=== PATIENT | male | born 1945 | race Caucasian/White ===

== ENCOUNTER 2019-05-06 09:25 | Observation (INO) | payer MEDICARE, OTHER, SELFPAY ==
[2019-05-06] VITALS (19 sets, daily range): BP systolic 105–142; BP diastolic 52–70; PULSE 61–83; RESP 10–19; TEMP 36.6–36.8; O2SAT 91–99; BMI 23.3
--- NOTE | 2019-05-06 09:38 | DI.RAD.S_ITS ---
PROCEDURE: XR CHEST 1V INDICATIONS: chest pain TECHNIQUE: One view of the chest was acquired. COMPARISON: None. FINDINGS: Surgical changes and devices: None. Lungs and pleura: Lungs are clear. No pleural effusions or pneumothorax. Mediastinum: Mediastinal contours appear normal. Heart size is normal. Bones and chest wall: No suspicious bony lesions. Overlying soft tissues appear unremarkable. IMPRESSION: Negative chest. No acute cardiopulmonary process is evident. Dictated by: Alfredo Lr M.D. on 05/06/2019 at 9:25 Approved by: Alfredo Lr M.D. on 05/06/2019 at 9:25
[2019-05-06 09:45] LABS: Add Manual Diff / Slide Review NO; Basophils Absolute Auto 0 /uL (0-100); Basophils Percent Auto 0.6 % (0-2); Eosinophils Absolute Auto 100 /uL (0-450); Eosinophils Percent Auto 2.3 % (2-4); Hematocrit 42.2 % (41-53); Hemoglobin 14.3 g/dL (13.5-17.5); Lymphocytes Absolute Auto 1000 /uL (1100-4500); Lymphocytes Percent Auto 23.7 % (25-40); Mean Corpuscular HGB Conc 33.9 % (30-36); Mean Corpuscular Hemoglobin 31.6 PG (26-34); Mean Corpuscular Volume 93.2 fL (80-100); Monocytes Absolute Auto 300 /uL (0-900); Monocytes Percent Auto 7.9 % (3-14); Neutrophils Absolute Auto 2900 /uL (1500-7000); Neutrophils Percent Auto 65.5 % (50-75); Platelet Count 177 X10^3/uL (150-400); Red Blood Cell Count 4.53 X10^6/uL (4.5-5.9); Red Cell Distribution Width 13.8 % (11.6-14.8); White Blood Cell Count 4.4 X10^3/uL (4.5-11.0)
--- NOTE | 2019-05-06 09:51 | ED.CHESTPAIN ---
HPI - Chest Pain General Chief Complaint: Chest Pain Stated Complaint: Heart problems Time Seen by Provider: 05/06/19 09:50 Source: patient Mode of arrival: Ambulatory Limitations: no limitations History of Present Illness HPI narrative: Patient is a 73-year-old male with history of severe CLAUDIA and gastritis presenting with left-sided chest pain. He says he always has chest pain but this morning it woke him up from his sleep few times. The 1st time he took Mylanta which typically does help, and it did help of a first-time agrees able to go back to sleep however he woke up again with chest pain on left side it is worse whenever he moves his arm, or takes a deep breath. He says it does radiate to his back a little bit as well. He denies any injury cough, or fever. He says that he also gets short of breath when he walks which is not abnormal for him, it is not any did an what has been. He currently has chest pain at 3 MD complaint: chest pain Onset (ago): hour(s) Duration: constant Onset: during rest Pain location: left chest Severity: moderate Severity scale (1-10): 3 Quality: aching Pain radiation: back Relieving factors: nothing Exacerbating factors: movement Related Data Home Medications Medication Instructions Recorded Confirmed Domperidone 5 mg PO TID 05/06/19 05/06/19 buprenorphine-naloxone 1 film SUBLINGUAL Q12H 05/06/19 05/06/19 famotidine 40 mg PO BEDTIME 05/06/19 05/06/19 lorazepam 0.5 - 1 mg PO BID PRN 05/06/19 05/06/19 naloxone [Narcan] 4 mg INTRANASAL DIRECTED 05/06/19 05/06/19 pantoprazole 40 mg PO QAM 05/06/19 05/06/19 sertraline 100 mg PO BEDTIME 05/06/19 05/06/19 simethicone [Gas Relief Ultra 180 mg PO DAILY PRN 05/06/19 05/06/19 Strength] tamsulosin 0.4 mg PO BEDTIME 05/06/19 05/06/19 Allergies Allergy/AdvReac Type Severity Reaction Status Date / Time Penicillins Allergy Intermediate Rash Verified 05/06/19 09:37 Review of Systems Review of Systems Narrative: GENERAL: Denies chills, fatigue, malaise, fever, sweats, travel HEENT: Denies sinus pain, ear pain, sore throat, difficulty swallowing, neck pain RESPIRATORY: Denies dyspnea, cough, wheezing, hemoptysis, sputum. CARDIOVASCULAR: See HPI GASTROINTESTINAL: Denies nausea, vomiting, abdominal pain, diarrhea, constipation, melena. : Denies dysuria, frequency, incontinence, hematuria, urinary retention, flank pain. MUSCULOSKELETAL: Denies weakness, joint pain, or bony pain SKIN: No rash, no erythema, no pruritus NEUROLOGIC: Denies weakness, dizziness, headache, numbness, change in speech, confusion PSYCHIATRIC: No concerning psychosocial issues. 12 point review of systems is negative except for those stated above and HPI Patient History Medical History Gastritis (Acute) Sleep apnea (Acute) Social History Smoking Status: Never smoker Smoking Status: Never smoker alcohol intake frequency: 0-2 drinks per day Substance Use Type: does not use Exam Initial Vital Signs Initial Vital Signs: Vital Signs Pulse Rate 79 05/06/19 09:25 Respiratory Rate 18 05/06/19 09:25 Blood Pressure 142/68 H 05/06/19 09:25 Pulse Oximetry 99 05/06/19 09:25 GENERAL: Well-appearing, well-nourished and in no acute distress. HEENT: Head atraumatic,EOMI, pupils reactive, face symmetric, moist mucous membranes CARDIOVASCULAR: Regular rate and rhythm without murmurs, rubs or gallops. Pain is reproducible on the left side to palpation RESPIRATORY: Breath sounds equal bilaterally, no wheezes rales or rhonchi. ABDOMEN: Soft, nontender. Normoactive bowel sounds all 4 quadrants. No guarding or rebound. EXTREMITIES: Normal range of motion, no clubbing or edema. Neurovascularly intact NEUROLOGICAL: Alert and oriented x4.Normal gait and speech. Cranial nerves II through XII grossly intact. SKIN: Warm, dry, no laceration, no petechiae, no rashes or lesions. Course Orders Ordered: ED Orders 05/06/19 09:37 Complete Blood Count AUTO DIFF Stat Comprehensive Metabolic Panel Stat Lipase Stat Magnesium Stat Partial Thromboplastin Time Stat Prothrombin Time INR Stat Troponin & CK Cardiac Panel Stat 05/06/19 09:38 XR chest 1V Stat 05/06/19 09:39 EKG-12 Lead Stat 05/06/19 12:00 Troponin I Stat Acetaminophen (Tylenol) 650 mg PO Q6HR PRN PRN Reason: Fever/Mild Pain (1-3) Al Hydrox/Mg Hydrox/Simethicone (Maalox Plus) 30 ml PO Q6HR PRN PRN Reason: Dyspepsia Bisacodyl (Dulcolax) 10 mg MD DAILY PRN PRN Reason: Constipation Calcium Carbonate (Tums) 1,000 mg PO Q4HR PRN PRN Reason: Dyspepsia Enoxaparin Sodium (Lovenox) 40 mg SUBCUT DAILY MARCELINA Lorazepam (Ativan) 0.5 mg PO BID PRN PRN Reason: agitation or anxiety Magnesium Hydroxide (Milk Of Magnesia) 30 ml PO DAILY PRN PRN Reason: Constipation Mirtazapine (Remeron) 15 mg PO BEDTIME MARCELINA Naloxone HCl (Narcan) 0.2 mg IV Q2MIN PRN PRN Reason: Opiate Reversal Non-Formulary Medication (Famotidine) 40 mg PO BEDTIME MARCELINA Non-Formulary Medication (Naloxone [Narcan]) 4 mg NASAL DIRECTED MARCELINA Nortriptyline HCl (Pamelor) 30 mg PO BEDTIME MARCELINA Ondansetron HCl (Zofran) 4 mg IV Q8HR PRN PRN Reason: Nausea And Vomiting Pantoprazole Sodium (Protonix) 40 mg PO 0700,2100 MARCELINA Tamsulosin HCl (Flomax) 0.4 mg PO BEDTIME MARCELINA Discontinued Medications Acetaminophen (Tylenol) 650 mg PO NOW ONE Stop: 05/06/19 10:52 Last Admin: 05/06/19 10:56 Dose: 650 mg Documented by: ELEUTERIO Aspirin (Aspirin Chew) 324 mg PO NOW ONE Stop: 05/06/19 09:39 Last Admin: 05/06/19 10:34 Dose: 324 mg Documented by: ELEUTERIO Nitroglycerin (Nitrostat) 0.4 mg SL NOW ONE Stop: 05/06/19 10:17 Last Admin: 05/06/19 10:34 Dose: 0.4 mg Documented by: ELEUTERIO Nitroglycerin (Nitrostat) 0.4 mg SL NOW ONE Stop: 05/06/19 10:49 Last Admin: 05/06/19 10:50 Dose: 0.4 mg Documented by: ELEUTERIO Pantoprazole Sodium (Protonix) 40 mg IV NOW ONE Stop: 05/06/19 10:17 Last Admin: 05/06/19 10:33 Dose: 40 mg Documented by: ELEUTERIO Vital Signs Vital signs: Vital Signs - 8 hr 05/06/19 09:25 05/06/19 09:40 05/06/19 09:55 Pulse Rate 79 77 78 Respiratory Rate 18 11 L 17 Blood Pressure 142/68 H Blood Pressure [Right Arm] 119/62 120/70 Pulse Oximetry 99 05/06/19 10:10 05/06/19 10:30 05/06/19 10:34 Pulse Rate 74 76 83 Respiratory Rate 16 14 Blood Pressure 135/68 Blood Pressure [Right Arm] 129/68 133/59 L Pulse Oximetry 94 05/06/19 10:35 05/06/19 10:40 05/06/19 10:45 Pulse Rate 76 69 77 Respiratory Rate 13 11 L 12 Blood Pressure Blood Pressure [Right Arm] 108/56 L 121/64 121/58 L Pulse Oximetry 93 91 94 05/06/19 10:50 05/06/19 10:55 Pulse Rate 77 73 Respiratory Rate 13 11 L Blood Pressure 121/64 Blood Pressure [Right Arm] 114/56 L 111/52 L Pulse Oximetry 95 94 MDM - Chest Pain Lab Data Attestation: I reviewed the patient's lab results. Result diagrams: 05/06/19 09:37 05/06/19 09:37 Labs: Lab Results 05/06/19 05/06/19 05/06/19 Range/Units 09:37 09:37 09:37 WBC 4.4 L (4.5-11.0) X10^3/uL RBC 4.53 (4.5-5.9) X10^6/uL Hgb 14.3 (13.5-17.5) g/dL Hct 42.2 (41-53) % MCV 93.2 (80-100) fL MCH 31.6 (26-34) PG MCHC 33.9 (30-36) % RDW 13.8 (11.6-14.8) % Plt Count 177 (150-400) X10^3/uL Neut % (Auto) 65.5 (50-75) % Lymph % (Auto) 23.7 L (25-40) % [place] % (Auto) 7.9 (3-14) % Eos % (Auto) 2.3 (2-4) % Baso % (Auto) 0.6 (0-2) % Neut # (Auto) 2900 (0505-7144) /uL Lymph # (Auto) 1000 L (1146-5832) /uL [place] # (Auto) 300 (0-900) /uL Eos # (Auto) 100 (0-450) /uL Baso # (Auto) 0 (0-100) /uL PT 11.2 (10.1-12.7) SECONDS INR 1.0 (0.9-1.3) APTT 31 (26.4-36.2) SECONDS Sodium 138 (137-145) mmol/L Potassium 3.9 (3.4-5.1) mmol/L Chloride 99 (98-107) mmol/L Carbon Dioxide 33 H (22-32) mmol/L BUN 20 (9-20) mg/dL Creatinine 0.80 (0.66-1.25) mg/dL Estimated GFR > 60.0 (>60) mL/min BUN/Creatinine Ratio 25.0 H (6-22) Glucose 96 (80-110) mg/dL Calcium 9.4 (8.4-10.2) mg/dL Magnesium 2.2 (1.6-2.3) mg/dL Total Bilirubin 0.7 (0.2-1.3) mg/dL AST 24 (17-59) IU/L ALT 18 (<50) IU/L Alkaline Phosphatase 67 (38-126) U/L Total Creatine Kinase 37 L (55-170) U/L CK-MB (CK-2) TNP CK-MB (CK-2) Rel Index TNP Troponin I < 0.012 (0.01-0.034) ng/mL Total Protein 6.8 (6.3-8.2) g/dL Albumin 4.4 (3.5-5.0) g/dL Globulin 2.4 (1.7-4.1) g/dL Albumin/Globulin Ratio 1.8 (1.0-2.8) Lipase 40 (23-300) U/L Imaging Data Chest x-ray: Radiologist's Impression: PROCEDURE: XR CHEST 1V INDICATIONS: chest pain TECHNIQUE: One view of the chest was acquired. COMPARISON: None. FINDINGS: Surgical changes and devices: None. Lungs and pleura: Lungs are clear. No pleural effusions or pneumothorax. Mediastinum: Mediastinal contours appear normal. Heart size is normal. Bones and chest wall: No suspicious bony lesions. Overlying soft tissues appear unremarkable. IMPRESSION: Negative chest. No acute cardiopulmonary process is evident. Dictated by: Alfredo rL M.D. on 05/06/2019 at 9:25 Approved by: Alfredo Lr M.D. on 05/06/2019 at 9:25 ECG Data Attestation: I personally reviewed and interpreted this ECG as follows: Prior ECG tracings: not available for review Interpretation: Normal sinus rhythm rate 75 p.r. interval 168 QRS [address] elevation depression or T-wave inversion no priors to compare MDM Narrative Medical decision making narrative: Continues to have increasing chest pain on the left side he is given 2 nitroglycerin and his pain resolves. This is atypical chest pain for him, he has no known history of coronary artery disease. He is given Protonix but the nitroglycerin seemed to help almost immediately. Discussed with Dr. hanson who accepts patient for chest pain observation rule Discharge Plan Departure Patient Disposition: Admitted as Observation Clinical Impression: Chest pain Qualifiers: Chest pain type: unspecified Qualified Code(s): R07.9 - Chest pain, unspecified Discharge Date/Time: 05/06/19 12:16 Admit Date/Time: 05/06/19 11:06 Admit Provider: Brittany Hanson
[2019-05-06 09:54] LABS: Prothrombin Time 11.2 SECONDS (10.1-12.7)
[2019-05-06 09:56] LABS: PTT Partial Thromboplastin Tim 31 SECONDS (26.4-36.2)
[2019-05-06 09:58] LABS: Alanine Aminotransferase 18 IU/L (<50); Albumin 4.4 g/dL (3.5-5.0); Albumin Globulin Ratio 1.8 (1.0-2.8); Alkaline Phosphatase 67 U/L (38-126); Aspartate Aminotransferase 24 IU/L (17-59); Bilirubin Total 0.7 mg/dL (0.2-1.3); Blood Urea Nitrogen 20 mg/dL (9-20); Calcium 9.4 mg/dL (8.4-10.2); Carbon Dioxide 33 mmol/L (22-32); Chloride 99 mmol/L (98-107); Creatine Kinase 37 U/L (55-170); Estimated Glomerular Filt Rate > 60.0 mL/min (>60); Globulin 2.4 g/dL (1.7-4.1); Glucose 96 mg/dL (80-110); HEMOLYSIS < 15 (0-50); Lipase 40 U/L (23-300); Magnesium 2.2 mg/dL (1.6-2.3); Potassium 3.9 mmol/L (3.4-5.1); Sodium 138 mmol/L (137-145); Total Protein 6.8 g/dL (6.3-8.2)
[2019-05-06 10:09] LABS: Troponin I < 0.012 ng/mL (0.01-0.034)
[2019-05-06] MEDS: PANTOPRAZOLE 40 MG VIAL IV (10:33)
[2019-05-06] MEDS: ASPIRIN 81 MG CHEW TAB 324 MG PO (10:34)
[2019-05-06] MEDS: NITROGLYCERIN 0.4 MG SL TAB SL ×2 (10:34→10:50)
[2019-05-06] MEDS: ACETAMINOPHEN 325 MG TABLET 650 MG PO ×2 (10:56→16:49)
--- NOTE | 2019-05-06 11:04 | PC.NURSE ---
After 2 SL nitro pts pain is 3/10, SOB is improved. Medicated with tylenol for HILL.
--- NOTE | 2019-05-06 12:07 | PC.NURSE ---
Day shift: Pt on unit at approx 1200 from ED. A&Ox4. Oriented to room and call light. Denies chest pain. Call light in reach. Spouse in room for support.
[2019-05-06 12:29] LABS: Cholesterol 179 mg/dL (140-199); HDL Cholesterol 47 mg/dL (40-60); LDL Cholesterol Calculated 120 mg/dL (<100); Triglycerides 62 mg/dL (35-150)
[2019-05-06 12:33] LABS: Hemoglobin A1C% w Est Avg Glu 5.1 % (4.0-6.0)
[2019-05-06 12:35] LABS: Troponin I < 0.012 ng/mL (0.01-0.034)
[2019-05-06] MEDS: MAG HYDROX/ALUM/SIMETH 30 ML UDC PO (13:03)
[2019-05-06] MEDS: LORazepam 0.5 MG TABLET PO (13:03)
[2019-05-06] MEDS: SERTRALINE 50 MG TABLET 150 MG PO (13:43)
[2019-05-06] MEDS: BUPRENORPHINE/NALOXONE 8MG/2MG 1 TAB SL ×2 (13:43→20:23)
[2019-05-06] MEDS: ONDANSETRON 4 MG/2 ML INJ IV (14:31)
[2019-05-06 16:16] LABS: Creatine Kinase 33 U/L (55-170)
[2019-05-06 16:29] LABS: Troponin I < 0.012 ng/mL (0.01-0.034)
--- NOTE | 2019-05-06 17:18 | PM.HP.1 ---
History of Present Illness History of Present Illness Date Patient Seen: 05/06/19 Chief complaint: Heart problems Narrative: Fran Ruby is a 73-year-old male with a past medical history significant for central sleep apnea, chronic lumbar back pain on Suboxone, gastroparesis, GERD with history of gastritis, depression and anxiety, and idiopathic peripheral neuropathy who presented to the ED with abrupt onset of chest pain. The patient reports that he awakens throughout the night due to central sleep apnea with shortness of breath and chest pain nightly. He reports that last night he abruptly awoke with severe left-sided substernal chest pain which radiated to his left neck, shoulder, down left arm with a tight band around his wrist and straight through to his back. He reports associated nausea and shortness of breath. He reports the quality of his chest pain as sharp, achy with mild pressure sensation. He rated the pain a +7/10 which lasted for 30 minutes then lightened to a +3/10. When the patient arrived to the ED his chest pain had increased to a +5/10 and he received his first dose of sublingual nitroglycerin which decreased his chest pain to a +3/10 and then a second dose which completely resolved his chest pain. The patient reports he had a left cardiac catheterization 05/26 due to chest pain with EKG changes at [facility] and no obstructive coronary artery disease was found. He is currently chest pain-free and has no complaints. He denies headache, chest pain, shortness of breath, nausea, vomiting, fever, chills, dysuria, diarrhea or constipation. He currently uses a CPAP for his central sleep and reports he is to receive a BiPAP on 05/09/2019. The patient's initial troponin was negative in EKG was found to be sinus rhythm without acute ischemic changes such as ST elevation or depression. The patient was admitted observation for chest pain rule out. Patient History Medical History Anxiety (Acute) Central sleep apnea (Acute) Chronic low back pain (Acute) Chronic pain (Acute) Depression (Acute) Gastritis (Acute) Gastroparesis (Acute) GERD (gastroesophageal reflux disease) (Acute) History of left heart catheterization (Acute) Idiopathic peripheral neuropathy (Acute) Sleep apnea (Acute) Surgical History History of laminectomy (Acute) Family & Social History Family History Mother Healthy adult Father No problems noted. Brother Healthy adult Sister Healthy adult Social History: household members spouse Prior Living Arrangements House Safety & Behavioral: Feels Safe in Current Yes Environment Been Physically Hurt or No Threatened By a Person Suicidal Ideation Description None Suicide Plan Description No Plan The patient has been for 53 years. He has 1 son and 1 daughter who are both healthy. 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 He does not use alcohol tobacco or recreational drugs. Tobacco & Substance use: Smoking Status Never smoker alcohol intake never alcohol intake frequency 0-2 drinks per day Substance Use Type does not use Meds Home Medications and Allergies Home Medications Medication Instructions Recorded Confirmed Type Domperidone 5 mg PO TID 05/06/19 05/06/19 History buprenorphine-naloxone 1 film SUBLINGUAL Q12H 05/06/19 05/06/19 History famotidine 40 mg PO BEDTIME 05/06/19 05/06/19 History lorazepam 0.5 - 1 mg PO BID PRN 05/06/19 05/06/19 History naloxone [Narcan] 4 mg INTRANASAL DIRECTED 05/06/19 05/06/19 History pantoprazole 40 mg PO QAM 05/06/19 05/06/19 History sertraline 100 mg PO BEDTIME 05/06/19 05/06/19 History simethicone [Gas Relief Ultra 180 mg PO DAILY PRN 05/06/19 05/06/19 History Strength] tamsulosin 0.4 mg PO BEDTIME 05/06/19 05/06/19 History Allergies Allergy/AdvReac Type Severity Reaction Status Date / Time Penicillins Allergy Intermediate Rash Verified 05/06/19 09:37 Review of Systems Review of Systems Narrative: A 10 system comprehensive review of systems was conducted with the patient and found to be negative except as above in the History of Present Illness. Exam Vital Signs (past 8 hours): - 05/06/19 09:25 05/06/19 09:40 05/06/19 09:55 Temperature Pulse Rate 79 77 78 Respiratory Rate 18 11 L 17 Blood Pressure 142/68 H Blood Pressure [Right Arm] 119/62 120/70 Pulse Oximetry 99 05/06/19 10:10 05/06/19 10:30 05/06/19 10:34 Temperature Pulse Rate 74 76 83 Respiratory Rate 16 14 Blood Pressure 135/68 Blood Pressure [Right Arm] 129/68 133/59 L Pulse Oximetry 94 05/06/19 10:35 05/06/19 10:40 05/06/19 10:45 Temperature Pulse Rate 76 69 77 Respiratory Rate 13 11 L 12 Blood Pressure Blood Pressure [Right Arm] 108/56 L 121/64 121/58 L Pulse Oximetry 93 91 94 05/06/19 10:50 05/06/19 10:55 05/06/19 11:15 Temperature Pulse Rate 77 73 74 Respiratory Rate 13 11 L 10 L Blood Pressure 121/64 Blood Pressure [Right Arm] 114/56 L 111/52 L 105/58 L Pulse Oximetry 95 94 97 05/06/19 11:25 05/06/19 12:05 05/06/19 16:11 Temperature 97.8 F 98.2 F Pulse Rate 69 61 73 Respiratory Rate 15 17 19 Blood Pressure 113/60 128/68 Blood Pressure [Right Arm] 116/61 Pulse Oximetry 98 97 96 Oxygen Delivery Method Room Air Oxygen Flow Rate 0 Narrative Exam Narrative: General: Elderly gentleman lying in bed and in no acute distress, appears younger than stated age, well-developed, well-nourished, appropriately interactive. HEENT: Normocephalic, atraumatic. External ears without defect. Pupils equal, round, and reactive to light. Anicteric sclerae, moist conjunctivae, and no lid lag. Oropharynx free of erythema and cobble stoning with moist mucosa. Neck: Supple with full range of motion. No jugular venous distension. No lymphadenopathy or thyromegaly. Cardiovascular: Regular rate and rhythm without murmurs, rubs, or gallops appreciated. Pulmonary: Clear to auscultation bilaterally without crackles, wheezes, or rhonchi. Normal respiratory effort with no use of accessory muscles. Abdomen: Soft, bowel sounds present, nontender, nondistended. No hepatosplenomegaly or masses appreciated. Extremities: No clubbing, cyanosis, or edema. Skin: Normal temperature, turgor, and texture; no rash, ulcers, or subcutaneous nodules appreciated. Neurological: Cranial nerves grossly intact. Psychiatric: Normal mood and affect. Alert and oriented to person, place, and time. Objective Labs Result Diagrams: 05/06/19 09:37 05/06/19 09:37 Labs: Laboratory Results - last 24 hr 05/06/19 05/06/19 05/06/19 09:37 09:37 09:37 WBC 4.4 L RBC 4.53 Hgb 14.3 Hct 42.2 MCV 93.2 MCH 31.6 MCHC 33.9 RDW 13.8 Plt Count 177 Neut % (Auto) 65.5 Lymph % (Auto) 23.7 L [place] % (Auto) 7.9 Eos % (Auto) 2.3 Baso % (Auto) 0.6 Neut # (Auto) 2900 Lymph # (Auto) 1000 L [place] # (Auto) 300 Eos # (Auto) 100 Baso # (Auto) 0 PT 11.2 INR 1.0 APTT 31 Sodium 138 Potassium 3.9 Chloride 99 Carbon Dioxide 33 H BUN 20 Creatinine 0.80 Estimated GFR > 60.0 BUN/Creatinine Ratio 25.0 H Glucose 96 Hemoglobin A1c Calcium 9.4 Magnesium 2.2 Total Bilirubin 0.7 AST 24 ALT 18 Alkaline Phosphatase 67 Total Creatine Kinase 37 L CK-MB (CK-2) TNP CK-MB (CK-2) Rel Index TNP Troponin I < 0.012 Total Protein 6.8 Albumin 4.4 Globulin 2.4 Albumin/Globulin Ratio 1.8 Triglycerides Cholesterol LDL Cholesterol, Calc HDL Cholesterol Lipase 40 05/06/19 05/06/19 05/06/19 09:37 09:37 12:00 WBC RBC Hgb Hct MCV MCH MCHC RDW Plt Count Neut % (Auto) Lymph % (Auto) [place] % (Auto) Eos % (Auto) Baso % (Auto) Neut # (Auto) Lymph # (Auto) [place] # (Auto) Eos # (Auto) Baso # (Auto) PT INR APTT Sodium Potassium Chloride Carbon Dioxide BUN Creatinine Estimated GFR BUN/Creatinine Ratio Glucose Hemoglobin A1c 5.1 Calcium Magnesium Total Bilirubin AST ALT Alkaline Phosphatase Total Creatine Kinase CK-MB (CK-2) CK-MB (CK-2) Rel Index Troponin I < 0.012 Total Protein Albumin Globulin Albumin/Globulin Ratio Triglycerides 62 Cholesterol 179 LDL Cholesterol, Calc 120 H HDL Cholesterol 47 Lipase 05/06/19 16:00 WBC RBC Hgb Hct MCV MCH MCHC RDW Plt Count Neut % (Auto) Lymph % (Auto) [place] % (Auto) Eos % (Auto) Baso % (Auto) Neut # (Auto) Lymph # (Auto) [place] # (Auto) Eos # (Auto) Baso # (Auto) PT INR APTT Sodium Potassium Chloride Carbon Dioxide BUN Creatinine Estimated GFR BUN/Creatinine Ratio Glucose Hemoglobin A1c Calcium Magnesium Total Bilirubin AST ALT Alkaline Phosphatase Total Creatine Kinase 33 L CK-MB (CK-2) TNP CK-MB (CK-2) Rel Index TNP Troponin I < 0.012 Total Protein Albumin Globulin Albumin/Globulin Ratio Triglycerides Cholesterol LDL Cholesterol, Calc HDL Cholesterol Lipase Assessment & Plan Assessment & Plan narrative: Fran Ruby is a 73-year-old male with a past medical history significant for central sleep apnea, chronic lumbar back pain on Suboxone, gastroparesis, GERD with history of gastritis, depression and anxiety, and idiopathic peripheral neuropathy who presented to the ED with abrupt onset of chest pain. 1. Acute chest pain, present on admission. Resolved. -Patient presented with abrupt onset substernal left-sided chest pain radiating to left neck, shoulder, left arm with bandlike sensation around wrist and straight through to back with associated nausea and shortness of breath. -EKG demonstrated normal sinus rhythm without acute ischemic changes such as ST elevation or depression. Continue to monitor closely on telemetry. -Initial troponin negative at < 0.012. Continue to monitor serial troponin x3. -Ordered nuclear medicine stress test, pending. Patient is very low risk as his only cardiac risk factor is central sleep apnea and he received a left heart catheterization in 05/2018 which did not demonstrate obstructive coronary artery disease. 2. Central sleep apnea, chronic, present on admission. Stable. -Patient reports he is going to receive a BiPAP on 05/09/2019 -Ordered CLAUDIA protocol for CPAP. Encouraged patient to have his bring in his CPAP. 3. Chronic lumbar back pain on Suboxone, present on admission. Stable. -Continue home Suboxone 8mg/2mg 0.5 tablet at 0800, 1200 and 1 tablet at 2000. 4. GERD, chronic, present on admission. Stable. -Continue famotidine 40 mg daily at bedtime and Protonix 40 mg twice daily. 5. Gastroparesis, chronic, present on admission. Stable. -Patient is on domperidone 5 mg 3 times daily which will not be given due to medication being illegal in the [place]. The patient obtains medication and Melany. 6. Depression and anxiety, chronic, present on admission. Stable. -Continue sertraline 100 mg daily at bedtime and lorazepam 1 mg twice daily as needed for anxiety. Patient is admitted under observation status with expected length of stay less than 2 midnights due to severity of presenting symptoms, risk of adverse event, and complexity of treatment plan.
[2019-05-06] MEDS: raNITIdine 150 MG CAPSULE PO (21:33)
[2019-05-06] MEDS: TAMSULOSIN 0.4 MG CAPSULE PO (21:33)
[2019-05-06] MEDS: LORazepam 1 MG TABLET PO (21:38)
--- NOTE | 2019-05-06 21:59 | PC.NURSE ---
pt. denied chest pain. administered tylenol for head ache. denied n/v. passing gas. tele monitor.Pt aware he will be NPO tomorrow for stress test. pt is independent. call light in reach.
[2019-05-07] VITALS (8 sets, daily range): BP systolic 106–140; BP diastolic 58–75; PULSE 66–81; RESP 16–18; TEMP 36.3–36.7; O2SAT 93–97
[2019-05-07] MEDS: MAG HYDROX/ALUM/SIMETH 30 ML UDC PO ×2 (04:32→09:04)
--- NOTE | 2019-05-07 05:06 | PC.NURSE ---
Patient requesting to come off of bipap due stomach upset, requesting medications for dyspepsia. Placed patient on continuous pulse ox to determine need for supplemental O2, none needed at this time. Will continue to monitor.
[2019-05-07] MEDS: BUPRENORPHINE/NALOXONE 8MG/2MG 1 TAB 0.5 TAB SL ×2 (06:03→13:30)
[2019-05-07] MEDS: PANTOPRAZOLE 40 MG TABLET PO (06:04)
[2019-05-07] MEDS: ENOXAPARIN 40 MG/0.4 ML SYRINGE SUBCUT (08:14)
[2019-05-07] MEDS: ASPIRIN EC 81 MG TABLET PO (08:14)
[2019-05-07] MEDS: LORazepam 1 MG TABLET PO (08:14)
[2019-05-07] MEDS: SERTRALINE 50 MG TABLET 150 MG PO (08:22)
[2019-05-07] MEDS: CALCIUM CARBONATE 500 MG TAB 1000 MG PO (08:22)
[2019-05-07] MEDS: ONDANSETRON 4 MG/2 ML INJ IV (08:22)
[2019-05-07] MEDS: NITROGLYCERIN 0.4 MG SL TAB SL ×3 (08:51→09:12)
--- NOTE | 2019-05-07 08:53 | CM.DANOTE ---
Addendum entered by Eleanor Wei R.N. 05/07/19 15:32: Spoke to hospitalist, Dr. Dwyer. She is awaiting results of stress test. She stated, hopefully he can go home. Patient is in need of provider more local. Went ahead and met with patient. Gave him phone number of [facility], Dr. Jones, and Dr. Howell, which are taking new patients. Also gave him [facility] phone number as well. Patient appreciative. He is hopeful to go home today. Original Note: DCP: Case received, EMR reviewed and met with patient. Introduced self and role. Was able to meet with patient in his room to obtain baseline health history. DCP assessment completed with information currently available. Patient is a 73 year old male who admitted yesterday morning to the care of the hospitalist team. PCP: Dr. Mi at [facility] in [place]. Payer: confirmed: Medicare/[employer]. Patient came to the hospital via family vehicle secondary to left sided chest pain. Patient has cardiac history, last May had left cardiac catheterization. Patient is expected to have a stress test at noon today. Patient also has history of sleep apnea, as well as back pain. Patient is alert and oriented, independent. Confirmed with him that he lives here in [place] with his spouse, Cara. They have been 53 years, and he is a retired psychologist. P: DCP will continue to follow. Patient is set up for a stress test today. He could potentially go home today depending on the results. Eleanor Wei RN/School Manager
[2019-05-07] MEDS: ACETAMINOPHEN 325 MG TABLET 650 MG PO (09:08)
--- NOTE | 2019-05-07 11:13 | PC.NURSE ---
Pain: Pt reporting c/p and nausea while he was eating bkft, started at 7/10, then dropped to 3/10, he had zofran and got and ecg. C/p then went up to 5/10, pt reports MD thinks possible eso spasm, got tums, antacid, tylenol, ntg x3, made aware, reviewed ecg and later went and saw pt. c/p down to 3/10, then 2/10, and then it was gone and pt was able to sleep. he is awake now, and watches tv, awaiting his stress test for later today.
--- NOTE | 2019-05-07 12:32 | PC.NURSE ---
cardiac: remains pain free, currently [place] [facility]
--- NOTE | 2019-05-07 16:20 | PM.DS.1 ---
History of Present Illness History of Present Illness Chief complaint: Heart problems Narrative: Written by myself Dr. Dwyer: Fran Ruby is a 73-year-old male with a past medical history significant for central sleep apnea, chronic lumbar back pain on Suboxone, gastroparesis, GERD with history of gastritis, depression and anxiety, and idiopathic peripheral neuropathy who presented to the ED with abrupt onset of chest pain. The patient reports that he awakens throughout the night due to central sleep apnea with shortness of breath and chest pain nightly. He reports that last night he abruptly awoke with severe left-sided substernal chest pain which radiated to his left neck, shoulder, down left arm with a tight band around his wrist and straight through to his back. He reports associated nausea and shortness of breath. He reports the quality of his chest pain as sharp, achy with mild pressure sensation. He rated the pain a +7/10 which lasted for 30 minutes then lightened to a +3/10. When the patient arrived to the ED his chest pain had increased to a +5/10 and he received his first dose of sublingual nitroglycerin which decreased his chest pain to a +3/10 and then a second dose which completely resolved his chest pain. The patient reports he had a left cardiac catheterization 05/26 due to chest pain with EKG changes at [facility] and no obstructive coronary artery disease was found. He is currently chest pain-free and has no complaints. He denies headache, chest pain, shortness of breath, nausea, vomiting, fever, chills, dysuria, diarrhea or constipation. He currently uses a CPAP for his central sleep and reports he is to receive a BiPAP on 05/09/2019. The patient's initial troponin was negative in EKG was found to be sinus rhythm without acute ischemic changes such as ST elevation or depression. The patient was admitted observation for chest pain rule out. Discharge Providers Provider Date of admission: 05/06/19 11:06 Discharge Date: 05/07/19 Consults: 05/06/19 12:07 Consult to Discharge Planning Routine Comment: Discharge provider: Brittany Dwyer DO Summary Hospital Course Discharge Diagnosis: 1. Acute chest pain, present on admission. Resolved. 2. Central sleep apnea, chronic, present on admission. Stable. 3. Chronic lumbar back pain on Suboxone, present on admission. Stable. 4. GERD, chronic, present on admission. Stable. 5. Gastroparesis, chronic, present on admission. Stable. 6. Depression and anxiety, chronic, present on admission. Stable. 7. Hyperlipidemia, chronic, present on admission. Stable. Hospital Course: Fran Ruby is a 73-year-old male with a past medical history significant for central sleep apnea, chronic lumbar back pain on Suboxone, gastroparesis, GERD with history of gastritis, depression and anxiety, and idiopathic peripheral neuropathy who presented to the ED with abrupt onset of chest pain. 1. Acute chest pain, present on admission. Resolved. -Patient presented with abrupt onset substernal left-sided chest pain radiating to left neck, shoulder, left arm with bandlike sensation around wrist and straight through to back with associated nausea and shortness of breath. -cardiac risk factors include: Central sleep apnea and hyperlipidemia. -EKG demonstrated normal sinus rhythm without acute ischemic changes such as ST elevation or depression. Continue to monitor closely on telemetry. -Serial troponin x 3 negative at < 0.012. -Nuclear medicine stress test was within normal limits with good exercise capacity. Cardiology noted large shadow from stomach and patient relays that he has a hiatal hernia. -Recommended continued GI evaluation for possible esophageal hyperperistalsis/distal esophageal spasm as patient's chest pain resolved with nitroglycerin which is also a smooth muscle relaxant for the esophagus. May want to consider Celso fundoplication versus starting diltiazem. 2. Central sleep apnea, chronic, present on admission. Stable. -Patient reports he is going to receive a BiPAP on 05/09/2019. -Continued CLAUDIA protocol for CPAP. Encouraged patient to have his bring in his CPAP. 3. Chronic lumbar back pain on Suboxone, present on admission. Stable. -Continued home Suboxone 8mg/2mg 0.5 tablet at 0800, 1200 and 1 tablet at 2000. 4. GERD, chronic, present on admission. Stable. -Continued famotidine 40 mg daily at bedtime and Protonix 40 mg twice daily. 5. Gastroparesis, chronic, present on admission. Stable. -Patient is on domperidone 5 mg 3 times daily which will not be given due to medication being illegal in the [place]. The patient obtains medication in [place]. 6. Depression and anxiety, chronic, present on admission. Stable. -Continued sertraline 100 mg daily at bedtime and lorazepam 1 mg twice daily as needed for anxiety. 7. Hyperlipidemia, chronic, present on admission. Stable. -Fasting lipid panel demonstrated fair lipid control: Total cholesterol 179, triglycerides 62, LDL elevated at 120 (goal <100), and HDL 47. -Discussed lifestyle modification including diet and exercise in detail. The patient has had elevated LDL in the past which he is gotten down with lifestyle modification previously. Highly recommend considering statin therapy. Exam Vital Signs (past 8 hours): - 05/07/19 08:51 05/07/19 08:57 05/07/19 09:12 Temperature Pulse Rate 74 81 74 Respiratory Rate Blood Pressure 122/65 110/64 107/58 L Pulse Oximetry 05/07/19 12:46 05/07/19 15:14 Temperature 98 F 97.7 F Pulse Rate 70 80 Respiratory Rate 16 16 Blood Pressure 140/75 112/66 Pulse Oximetry 97 97 Oxygen Delivery Method Room Air Oxygen Flow Rate 0 Narrative Exam Narrative: General: Elderly gentleman lying in bed and in no acute distress, appears younger than stated age, well-developed, well-nourished, appropriately interactive. HEENT: Normocephalic, atraumatic. External ears without defect. Pupils equal, round, and reactive to light. Anicteric sclerae, moist conjunctivae, and no lid lag. Oropharynx free of erythema and cobble stoning with moist mucosa. Neck: Supple with full range of motion. No jugular venous distension. No lymphadenopathy or thyromegaly. Cardiovascular: Regular rate and rhythm without murmurs, rubs, or gallops appreciated. Mild tenderness to palpation of anterior left chest. Pulmonary: Clear to auscultation bilaterally without crackles, wheezes, or rhonchi. Normal respiratory effort with no use of accessory muscles. Abdomen: Soft, bowel sounds present, nontender, nondistended. No hepatosplenomegaly or masses appreciated. Extremities: No clubbing, cyanosis, or edema. Skin: Normal temperature, turgor, and texture; no rash, ulcers, or subcutaneous nodules appreciated. Neurological: Cranial nerves grossly intact. Psychiatric: Normal mood and affect. Alert and oriented to person, place, and time. Objective Labs Result Diagrams: 05/06/19 09:37 05/06/19 09:37 Labs: Laboratory Results - last 24 hr 05/06/19 16:00 Troponin I < 0.012 Discharge Plan Discharge Plan Patient Disposition: Home Discharge comment: You are being discharged home. Your stress test and cardiac workup was completely normal. Cardiology recommends continued GI evaluation. Please follow-up with your primary care physician, Dr. Mi, regarding your hospitalization. Your bad cholesterol called LDL was elevated at 120 for which we want to be under 100. You have tried lifestyle modifications several times in the past with success, however, your LDL continues to be elevated intermittently and you should likely be treated with a statin which you may discuss with your PCP. Please follow-up with GI provider, Dr. Eduardo, to discuss further workup and evaluation and consider distal esophageal spasm (CAROLYN)/esophageal hyperperistalsis. Discharge orders & Medications Prescriptions: Continued famotidine 40 mg tablet 40 mg PO BEDTIME RF: 0 tamsulosin 0.4 mg capsule 0.4 mg PO BEDTIME RF: 0 pantoprazole 40 mg tablet,delayed release (DR/EC) 40 mg PO QAM RF: 0 lorazepam 1 mg tablet 0.5 - 1 mg PO BID PRN (Reason: agitation or anxiety) RF: 0 buprenorphine-naloxone 8-2 mg film 1 film sublingual Q12H RF: 0 Narcan 4 mg/actuation spray,non-aerosol 4 mg INTRANASAL DIRECTED RF: 0 simethicone [Gas Relief Ultra Strength] 180 mg Capsule 180 mg PO DAILY PRN (Reason: gas) RF: 0 sertraline 100 mg tablet 100 mg PO BEDTIME RF: 0 Domperidone 10 mg tablet 5 mg PO TID RF: 0 Diet/Activity/Treatments Diet: Low-fat, Low-sodium and Low-cholesterol Activity: Activity as tolerated Visit Report/Discharge Packet Instructions: The Mediterranean Diet and Good Health, Fundoplication -- Open Surgery, DI for Gastroesophageal Reflux Disease (GERD), GERD Diet Discharge Data Attending Provider: Brittany Dwyer Admit Date/Time: 05/06/19 11:06
--- NOTE | 2019-05-07 16:30 | PC.NURSE ---
98% RA. pt denied chest pain. pt is using his bipap when sleeping. independent in room. call light in reach.
--- NOTE | 2019-05-07 16:49 | DI.NM.S_ITS ---
DATE OF SERVICE: 05/07/2019 PROCEDURE: Exercise perfusion study. INDICATIONS: Chest pain with underlying obstructive sleep apnea. RADIOPHARMACEUTICAL: 27.0 mCi of technetium-99m Myoview IV was injected at stress. CARDIAC STRESS: Patient underwent exercise perfusion study under the supervision of an attending staff. he walked on Deejay protocol for 9 minutes 30 seconds, achieved 104% of target heart rate, normal blood pressure response, 10.2 METs of workload, and functional aerobic impairment -39%. No anginal symptoms. Baseline EKG revealed sinus rhythm. Stress EKG did not reveal any obvious inducible ischemic changes. There were no significant arrhythmias. RAW DATA: There is increased subdiaphragmatic activity. Prominent gastric shadow seen as well. GATED STUDY: Stress LV ejection fraction 83% without any obvious wall motion abnormalities. Stress end-diastolic volume is 89 mL. CARDIAC PERFUSION: This is a stress perfusion study only. No resting study was done. Stress supine images were compared to stress prone images. Stress supine images revealed small-sized mildly decreased perfusion of [id number] inferior wall which got completely resolved during prone images suggestive of tissue attenuation artifact. During prone images, no convincing perfusion defect. CONCLUSION: I will call this study a normal myocardial perfusion study with evidence of tissue attenuation artifact which got resolved during prone images. Excellent exercise tolerance. Functional aerobic impairment -39%. Patient walked on Deejay protocol for 9 minutes and 30 seconds. Normal hemodynamic response. No ischemic EKG changes. No significant arrhythmias. Prominent gastric shadow seen during raw images. Consider GI workup to rule out GI etiology of chest pain. Fran Ruby - [place]/ doc#: [id number]/job#: [id number] dd: 05/07/2019 16:19:00 dt: 05/07/2019 16:42:00 DICTATING MD/COPIES TO: Jere Baird MD COPIES MNE: DINA
--- NOTE | 2019-05-07 17:42 | PC.NURSE ---
pt A&OX4. pt ate his dinner. Pt dc'd, refused wheelchair, escorted by PRET[employer] TWISTING MACHINE OPERATOR to the exit. discharge instructions provided by Karishma.
== END 2019-05-07 17:42 | disposition home or self-care (01) ==
LOC: ED 11:06 → AC 11:07
PROVIDERS: Admitting Provider Internal Medicine; Emergency Provider Emergency Medicine; Visit Provider Internal Medicine
DX: R07.9 Chest pain, unspecified (principal); G47.31 Primary central sleep apnea; F41.9 Anxiety disorder, unspecified; F32.9 Major depressive disorder, single episode, unspecified; K21.9 Gastro-esophageal reflux disease without esophagitis; G60.9 Hereditary and idiopathic neuropathy, unspecified; G89.29 Other chronic pain; M54.5 Low back pain; K31.84 Gastroparesis; E78.5 Hyperlipidemia, unspecified
CPT/HCPCS: 36415; 71045; 78451; 80053; 80061; 82550; 83036; 83690; 83735; 84484; 85025; 85610; 85730; 93005; 93016; 93017; 93018; 94660; 94762; 96374; 96375; 96376; 99285; G0378; A9502; C9113; J1650; J2405

== ENCOUNTER 2019-06-06 12:43 | Emergency (ER) | payer MEDICARE, OTHER, SELFPAY ==
[2019-05-06 13:51] VITALS: BMI 23.3
[2019-06-06] VITALS (9 sets, daily range): BP systolic 105–151; BP diastolic 56–69; PULSE 62–82; RESP 10–22; TEMP 37.2; O2SAT 93–99; BMI 23.6
--- NOTE | 2019-06-06 12:52 | DI.RAD.S_ITS ---
PROCEDURE: XR CHEST 1V INDICATIONS: chest pain TECHNIQUE: One view of the chest was acquired. COMPARISON: [facility], CR, XR CHEST 1V, 05/06/2019, 9:49. FINDINGS: Surgical changes and devices: None. Lungs and pleura: Lungs are clear. No pleural effusions or pneumothorax. Mediastinum: Mediastinal contours appear normal. Heart size is normal. Bones and chest wall: No suspicious bony lesions. Overlying soft tissues appear unremarkable. IMPRESSION: No acute cardiopulmonary pathology. Dictated by: Arden Aranda M.D. on 06/06/2019 at 14:53 Approved by: Arden Aranda M.D. on 06/06/2019 at 15:02
[2019-06-06 13:15] LABS: Add Manual Diff / Slide Review NO; Basophils Absolute Auto 0 /uL (0-100); Basophils Percent Auto 0.7 % (0-2); Eosinophils Absolute Auto 0 /uL (0-450); Eosinophils Percent Auto 1.5 % (2-4); Hematocrit 41.8 % (41-53); Hemoglobin 14.3 g/dL (13.5-17.5); Lymphocytes Absolute Auto 800 /uL (1100-4500); Lymphocytes Percent Auto 23.4 % (25-40); Mean Corpuscular HGB Conc 34.2 % (30-36); Mean Corpuscular Hemoglobin 31.5 PG (26-34); Monocytes Absolute Auto 200 /uL (0-900); Monocytes Percent Auto 7.2 % (3-14); Neutrophils Absolute Auto 2200 /uL (1500-7000); Neutrophils Percent Auto 67.2 % (50-75); Platelet Count 178 X10^3/uL (150-400); Red Blood Cell Count 4.55 X10^6/uL (4.5-5.9); Red Cell Distribution Width 13.3 % (11.6-14.8); White Blood Cell Count 3.3 X10^3/uL (4.5-11.0)
[2019-06-06 13:31] LABS: Prothrombin Time 11.1 SECONDS (10.1-12.7)
[2019-06-06 13:33] LABS: PTT Partial Thromboplastin Tim 31 SECONDS (26.4-36.2)
[2019-06-06 13:36] LABS: Alanine Aminotransferase 26 IU/L (<50); Albumin 4.4 g/dL (3.5-5.0); Albumin Globulin Ratio 1.8 (1.0-2.8); Alkaline Phosphatase 56 U/L (38-126); Aspartate Aminotransferase 25 IU/L (17-59); BUN Creatinine Ratio 21.3 (6-22); Bilirubin Total 0.7 mg/dL (0.2-1.3); Blood Urea Nitrogen 17 mg/dL (9-20); Calcium 9.3 mg/dL (8.4-10.2); Carbon Dioxide 30 mmol/L (22-32); Chloride 99 mmol/L (98-107); Creatine Kinase 36 U/L (55-170); Estimated Glomerular Filt Rate > 60.0 mL/min (>60); Globulin 2.4 g/dL (1.7-4.1); Glucose 125 mg/dL (80-110); HEMOLYSIS 16 (0-50); Lipase 34 U/L (23-300); Sodium 137 mmol/L (137-145); Total Protein 6.8 g/dL (6.3-8.2)
[2019-06-06 13:47] LABS: Troponin I < 0.012 ng/mL (0.01-0.034)
--- NOTE | 2019-06-06 14:15 | PC.NURSE ---
History of esophageal spasms
--- NOTE | 2019-06-06 15:37 | PC.NURSE ---
pt reports, left neck,left clavicle,shoulder,chest pain, left wrist band pain ,onset 2am worsening today, concern for tia. takes diltiazem, no ntg due to left sided headache pain specialist Jolanta Wilkerson. denies shortness of breath, coughing. on exam tenderness left side neck, clavicle,shoulder, pain with movement, left chest, tenderness with palpation.
--- NOTE | 2019-06-06 16:05 | ED_ITS ---
HPI - Chest Pain General Chief Complaint: Chest Pain Stated Complaint: persistent left chest, shoulder, neck pain Time Seen by Provider: 06/06/19 15:39 Source: patient Mode of arrival: Ambulatory History of Present Illness HPI narrative: Chief complaint: headache, left shoulder and arm pain and neck pain HPI: The patient is a 74-year-old male who is difficulty to get an accurate history as to exactly what is wrong. The patient has a history of chronic low back pain after a laminectomy chronic headache left neck pain left shoulder pain and left chest pain. The pain is a dull achy pain that is sharp and stabbing on movement. He admits to taking Suboxone for the pain and discomfort as well as diltiazem and nitroglycerin. He did not take the nitroglycerin today because it causes him to have a headache and he already had a severe headache. He states that he sees Dr. Mi a pain specialist who has prescribed these medications. He has seen Dr. Dwyer when admitted to the hospital. He denies a history of reflex sympathetic dystrophy. He denies dizziness rapid heart rate palpitations. He denies any kidney failure. He has had intermittent sweats associated with the headache but no fever chills. He denies any significant shortness of breath cough. He has had no nausea vomiting diarrhea or abdominal pain. He has had no urinary symptoms. Related Data Home Medications Medication Instructions Recorded Confirmed Domperidone 5 mg PO TID 05/06/19 06/06/19 Narcan 4 mg INTRANASAL DIRECTED 05/06/19 06/06/19 buprenorphine-naloxone 1 film SUBLINGUAL Q12H 05/06/19 06/06/19 famotidine 40 mg PO BEDTIME 05/06/19 06/06/19 lorazepam 0.5 - 1 mg PO BID PRN 05/06/19 06/06/19 pantoprazole 40 mg PO QAM 05/06/19 06/06/19 sertraline 100 mg PO BEDTIME 05/06/19 06/06/19 simethicone [Gas Relief Ultra 180 mg PO DAILY PRN 05/06/19 06/06/19 Strength] tamsulosin 0.4 mg PO BEDTIME 05/06/19 06/06/19 diltiazem HCl 60 mg PO QAM 06/06/19 06/06/19 diltiazem HCl 120 mg PO QPM 06/06/19 06/06/19 nitroglycerin [Nitrostat] 0.4 mg SUBLINGUAL PRN PRN 06/06/19 06/06/19 Previous Rx's Medication Instructions Recorded naproxen [Naprosyn] 500 mg PO BID PRN #20 tab 06/06/19 prednisone 40 mg PO DAILY #10 tab 06/06/19 Allergies Allergy/AdvReac Type Severity Reaction Status Date / Time Penicillins Allergy Intermediate Rash Verified 06/06/19 12:50 Review of Systems Review of Systems ROS Unobtainable: All systems reviewed & are unremarkable except as noted in HPI and below Patient History Surgical History History of laminectomy (Acute) Social History household members: spouse Smoking Status: Never smoker alcohol intake: never Smoking Status: Never smoker alcohol intake frequency: 0-2 drinks per day Substance Use Type: does not use Exam Narrative Exam Narrative: PHYSICAL EXAM: CONSTITUTIONAL: Awake, Alert, Oriented, Coherent, Cooperative i appears to be chronically ill thin and in moderate distress. HEAD: AT/NC EENT: PERRL, FROM of eyes, no discharge, no nystagmus No epistaxis or nasal drainage Oral mucosa is moist and pink, posterior pharynx is without erythema or exudate. NECK: Supple, no obvious JVD, Trachea is midline without stridor, no palpable LN or masses. SPINE: No gross deformity. He has mild diffuse tenderness over his cervical spine and left lower lateral facet joints of C4-5 6 and 7 as well as the left lower paracervical paraspinous muscles with mild spasm. He has similar tenderness over the lumbar spine. He has no costovertebral angle tenderness THORAX: No deformity, retractions, subcutaneous air or crepitice. The patient has diffuse diffuse tenderness to palpation over the left anterior ribs and costal sternal margin that mimics the chest pain and is reproducible. LUNGS: Clear with symmetrical breath sounds without respiratory distress HEART: Normal heart tones, regular rhythm and rate without murmur. ABDOMEN: Soft, non-tender, normal bowel sounds without guarding, rebound, rigidity or palpable mass EXTREMITIES: No edema, cyanosis, deformity or tenderness. The patient's radial pulses in his right and left arms are symmetrical. The patient is able to flex and move the wrist of his left arm as well as flex extend , abduct, adduct the fingers of his left hand. Capillary refill and sensation are intact. The patient complains of pain and discomfort on passive abduction of his left shoulder to the horizontal position, flexion and extension of the shoulder internal and external rotation that is reproducible. SKIN: No rash, bruising, petechiae or purpura. NEURO: Awake, alert, oriented, conversive, cranial nerves II-XII are symmetrical and normal, moves all 4 extremities and is ambulatory Initial Vital Signs Initial Vital Signs: Vital Signs Temperature 99.0 F 06/06/19 12:50 Pulse Rate 75 06/06/19 12:50 Respiratory Rate 16 06/06/19 12:50 Blood Pressure 116/59 L 06/06/19 12:50 Pulse Oximetry 95 06/06/19 12:50 Course Course Course Narrative: After administering the migraine cocktail for his headache the patient feels much better is smiling and is ready to go home. The patient was allowed to take his Suboxone. He was administered Toradol, Benadryl, Reglan, and Solu-Medrol. The patient will be discharged with Naprosyn 500 mg b.i.d. and prednisone 40 mg per day for the next 5 days. He was advised to follow-up with his primary care physician and his pain specialist. The patient is seeing a pain specialist and it is unknown whether not the patient is taking Suboxone for pain management or he is dependent on opiates. His chest x-ray was negative for any acute cardiopulmonary pathology. His laboratory tests were acceptable in within normal limits. His EKG did not reveal any cardiac history or cardiac arrhythmia. The patient did not take his nitro because he had a severe headache. He claims to be on diltiazem which I am unsure of the reason. He denies a history of atrial fibrillation. The patient's headache pain and discomfort in his neck and shoulder significantly improved and resolved at this time after we allowed him to take his 4 mg Suboxone an administered the migraine cocktail consisting of Toradol, Reglan, Benadryl, and Solu-Medrol. As an adjunct to his Suboxone the patient was discharged and prescribed Naprosyn 500 mg q.12 hours and prednisone 40 mg for the next 5 days. On my evaluation the patient's complaints did not seem cardiac in nature but musculoskeletal. Orders Ordered: Discontinued Medications Diphenhydramine HCl (Benadryl) 25 mg IV NOW ONE Stop: 06/06/19 15:40 Last Admin: 06/06/19 16:09 Dose: 25 mg Documented by: RAN Ketorolac Tromethamine (Toradol) 30 mg IV NOW ONE Stop: 06/06/19 15:40 Last Admin: 06/06/19 16:09 Dose: 30 mg Documented by: RAN Methylprednisolone (Solu-Medrol 125 Mg Vial) 125 mg IV NOW ONE Stop: 06/06/19 15:40 Last Admin: 06/06/19 16:09 Dose: 125 mg Documented by: RAN Metoclopramide HCl (Reglan) 10 mg IV NOW ONE Stop: 06/06/19 15:40 Last Admin: 06/06/19 16:09 Dose: 10 mg Documented by: RAN Vital Signs Vital signs: Vital Signs - 8 hr 06/06/19 12:50 06/06/19 14:15 06/06/19 15:39 Temperature 99.0 F Pulse Rate 75 68 82 Respiratory Rate 16 17 22 Blood Pressure 116/59 L Blood Pressure [Left Arm] 132/62 118/63 Pulse Oximetry 95 98 97 MDM - Chest Pain Lab Data Attestation: I reviewed the patient's lab results. Result diagrams: 06/06/19 13:07 06/06/19 13:07 Labs: Lab Results 06/06/19 06/06/19 06/06/19 Range/Units 13:07 13:07 13:07 WBC 3.3 L (4.5-11.0) X10^3/uL RBC 4.55 (4.5-5.9) X10^6/uL Hgb 14.3 (13.5-17.5) g/dL Hct 41.8 (41-53) % MCV 92.0 (80-100) fL MCH 31.5 (26-34) PG MCHC 34.2 (30-36) % RDW 13.3 (11.6-14.8) % Plt Count 178 (150-400) X10^3/uL Neut % (Auto) 67.2 (50-75) % Lymph % (Auto) 23.4 L (25-40) % [place] % (Auto) 7.2 (3-14) % Eos % (Auto) 1.5 L (2-4) % Baso % (Auto) 0.7 (0-2) % Neut # (Auto) 2200 (2328-0472) /uL Lymph # (Auto) 800 L (7479-9174) /uL [place] # (Auto) 200 (0-900) /uL Eos # (Auto) 0 (0-450) /uL Baso # (Auto) 0 (0-100) /uL ESR (0-15) MM/HR PT 11.1 (10.1-12.7) SECONDS INR 1.0 (0.9-1.3) APTT 31 (26.4-36.2) SECONDS Sodium 137 (137-145) mmol/L Potassium 4.0 (3.4-5.1) mmol/L Chloride 99 (98-107) mmol/L Carbon Dioxide 30 (22-32) mmol/L BUN 17 (9-20) mg/dL Creatinine 0.80 (0.66-1.25) mg/dL Estimated GFR > 60.0 (>60) mL/min BUN/Creatinine Ratio 21.3 (6-22) Glucose 125 H (80-110) mg/dL Calcium 9.3 (8.4-10.2) mg/dL Total Bilirubin 0.7 (0.2-1.3) mg/dL AST 25 (17-59) IU/L ALT 26 (<50) IU/L Alkaline Phosphatase 56 (38-126) U/L Total Creatine Kinase 36 L (55-170) U/L CK-MB (CK-2) TNP CK-MB (CK-2) Rel Index TNP Troponin I < 0.012 (0.01-0.034) ng/mL C-Reactive Protein (<1.0) mg/dL Total Protein 6.8 (6.3-8.2) g/dL Albumin 4.4 (3.5-5.0) g/dL Globulin 2.4 (1.7-4.1) g/dL Albumin/Globulin Ratio 1.8 (1.0-2.8) Lipase 34 (23-300) U/L 06/06/19 06/06/19 Range/Units 13:07 13:07 WBC (4.5-11.0) X10^3/uL RBC (4.5-5.9) X10^6/uL Hgb (13.5-17.5) g/dL Hct (41-53) % MCV (80-100) fL MCH (26-34) PG MCHC (30-36) % RDW (11.6-14.8) % Plt Count (150-400) X10^3/uL Neut % (Auto) (50-75) % Lymph % (Auto) (25-40) % [place] % (Auto) (3-14) % Eos % (Auto) (2-4) % Baso % (Auto) (0-2) % Neut # (Auto) (3801-4167) /uL Lymph # (Auto) (5372-0264) /uL [place] # (Auto) (0-900) /uL Eos # (Auto) (0-450) /uL Baso # (Auto) (0-100) /uL ESR 2 (0-15) MM/HR PT (10.1-12.7) SECONDS INR (0.9-1.3) APTT (26.4-36.2) SECONDS Sodium (137-145) mmol/L Potassium (3.4-5.1) mmol/L Chloride (98-107) mmol/L Carbon Dioxide (22-32) mmol/L BUN (9-20) mg/dL Creatinine (0.66-1.25) mg/dL Estimated GFR (>60) mL/min BUN/Creatinine Ratio (6-22) Glucose (80-110) mg/dL Calcium (8.4-10.2) mg/dL Total Bilirubin (0.2-1.3) mg/dL AST (17-59) IU/L ALT (<50) IU/L Alkaline Phosphatase (38-126) U/L Total Creatine Kinase 38 L (55-170) U/L CK-MB (CK-2) CK-MB (CK-2) Rel Index Troponin I (0.01-0.034) ng/mL C-Reactive Protein < 0.5 (<1.0) mg/dL Total Protein (6.3-8.2) g/dL Albumin (3.5-5.0) g/dL Globulin (1.7-4.1) g/dL Albumin/Globulin Ratio (1.0-2.8) Lipase (23-300) U/L ECG Data Attestation: I personally reviewed and interpreted this ECG as follows: Interpretation: The patient's EKG obtained on June 06 at 12:4 8:24 a.m. reveals a noisy baseline in the precordial leads. The rhythm is sinus, ventricular rate 77, intervals are normal. [place] is normal. The patient appears to have inverted T-waves in leads V1 V2 and V3 as well as V4 and V5. The question is do these represent ischemic changes or the possibility of pericarditis. There is no acute changes. Discharge Plan Departure Patient Disposition: Home Clinical Impression: Chest wall pain, Chronic pain in left shoulder, Chronic pain syndrome Headache Qualifiers: Headache type: unspecified Headache chronicity pattern: chronic headache Intractability: not intractable Qualified Code(s): R51 - Headache Discharge Date/Time: 06/06/19 18:00 Instructions: DI for Shoulder Pain, DI for Headache Activity Restrictions/Additional Instructions: Take the medications as directed as needed. However take the prednisone daily for the next 5 days. Follow-up with your primary care physician and your pain specialist to re-evaluate your pain syndrome. Prescriptions: New naproxen [Naprosyn] 500 mg tablet 500 mg PO BID PRN (Reason: pain) Qty: 20 RF: 0 prednisone 20 mg tablet 40 mg PO DAILY Qty: 10 RF: 0 No Action famotidine 40 mg tablet 40 mg PO BEDTIME RF: 0 tamsulosin 0.4 mg capsule 0.4 mg PO BEDTIME RF: 0 pantoprazole 40 mg tablet,delayed release (DR/EC) 40 mg PO QAM RF: 0 lorazepam 1 mg tablet 0.5 - 1 mg PO BID PRN (Reason: agitation or anxiety) RF: 0 buprenorphine-naloxone 8-2 mg film 1 film sublingual Q12H RF: 0 Narcan 4 mg/actuation spray,non-aerosol 4 mg INTRANASAL DIRECTED RF: 0 simethicone [Gas Relief Ultra Strength] 180 mg Capsule 180 mg PO DAILY PRN (Reason: gas) RF: 0 sertraline 100 mg tablet 100 mg PO BEDTIME RF: 0 Domperidone 10 mg tablet 5 mg PO TID RF: 0 diltiazem HCl 60 mg capsule,extended release 12 hr 60 mg PO QAM RF: 0 diltiazem HCl 60 mg capsule,extended release 12 hr 120 mg PO QPM RF: 0 nitroglycerin [Nitrostat] 0.4 mg tablet, sublingual 0.4 mg sublingual PRN PRN (Reason: Chest Pain) RF: 0 Referrals: Marcell Mackenzie MD [Primary Care Provider] -
[2019-06-06] MEDS: diphenhydrAMINE 50 MG/ML VIAL 25 MG IV (16:09)
[2019-06-06] MEDS: methylPREDNISolone 125 MG/2 ML VIAL IV (16:09)
[2019-06-06] MEDS: METOCLOPRAMIDE 10 MG/2 ML INJ IV (16:09)
[2019-06-06] MEDS: KETOROLAC 60 MG/2 ML VIAL 30 MG IV (16:09)
[2019-06-06 16:51] LABS: C-Reactive Protein Quant < 0.5 mg/dL (<1.0); Creatine Kinase 38 U/L (55-170)
[2019-06-06 17:02] LABS: Erythrocyte Sedimentation Rate 2 MM/HR (0-15)
== END 2019-06-06 18:00 | disposition home or self-care (01) ==
PROVIDERS: Emergency Provider Emergency Medicine; PCP Family Medicine
DX: R07.89 Other chest pain (principal); M25.512 Pain in left shoulder; R51 Headache; G89.4 Chronic pain syndrome
CPT/HCPCS: 36415; 71045; 80053; 82550; 83690; 84484; 85025; 85610; 85651; 85730; 86140; 93005; 96374; 96375; 99284; 99285; J1200; J1885; J2765; J2930

== ENCOUNTER 2020-07-13 07:09 | Emergency (ER) | payer MEDICARE, OTHER, SELFPAY ==
[2019-05-06 13:51] VITALS: BMI 23.3
[2020-07-13 07:26] VITALS: BP 146/91; PULSE 88; RESP 22; TEMP 37.3; O2SAT 93; BMI 21.1
--- NOTE | 2020-07-13 07:37 | DI.RAD.S_ITS ---
PROCEDURE: XR CHEST 1V INDICATIONS: dyspnea TECHNIQUE: One view of the chest was acquired. COMPARISON: [facility], CR, XR CHEST 1V, 06/06/2019, 13:45. FINDINGS: Surgical changes and devices: None. Lungs and pleura: Lungs are clear. No pleural effusions or pneumothorax. Mediastinum: Mediastinal contours appear normal. Heart size is normal. Bones and chest wall: No suspicious bony lesions. Overlying soft tissues appear unremarkable. IMPRESSION: No acute cardiopulmonary pathology. Dictated by: Arden Aranda M.D. on 07/13/2020 at 8:19 Approved by: Arden Aranda M.D. on 07/13/2020 at 8:19
--- NOTE | 2020-07-13 07:40 | ED.SOB ---
HPI - SOB/Dyspnea General Chief Complaint: Shortness of Breath/Dyspnea Stated Complaint: shortness of breath Time Seen by Provider: 07/13/20 07:10 Source: patient and family Mode of arrival: Ambulatory Limitations: no limitations History of Present Illness HPI Narrative: 75-year-old male nonsmoker with history of chest pain, gastritis and sleep apnea presents with ongoing symptoms. He states that for quite some time he has become increasingly short of breath at night and recently had a hospitalization in [facility] and. He had at significant workup including stress test and was determined there is no cardiac etiology. He has had extensive GI consultation and last endoscopy was about 2 years ago. At the time of discharge he was set up with a trilogy unit which seems to work for 3 or 4 hours of uninterrupted sleep each night but he does wake up feeling a burning in his chest each morning. He denies any exertional component to his chest pain and it seems to get better over the course of the day. He denies any nausea or vomiting. His shortness of breath seems to be better once he gets up and gets around for the day. He denies any fever chills. He denies any dizziness, weakness or lightheadedness. He denies any nausea, vomiting or diarrhea. He states that the burning in his anterior chest feels like prior episodes of increased acid. He denies any radiation or obvious provocation or palliation of his symptoms. He has had no cough or production of sputum. He denies any new medications or diet. He admits that he is very anxious and concerned something bad is happening and does not want latricia end up on hospice. He reports 15 pound weight loss over last few months MD Complaint: shortness of breath Onset (ago): month(s) Severity: moderate Consistency/Duration: intermittent Relieving factors: nothing Exacerbating factors: nothing Treatment prior to arrival: none Related Data Home oxygen amount: other Home Medications Medication Instructions Recorded Confirmed Domperidone 5 mg PO TID 05/06/19 06/06/19 Narcan 4 mg INTRANASAL DIRECTED 05/06/19 06/06/19 buprenorphine-naloxone 1 film SUBLINGUAL Q12H 05/06/19 06/06/19 famotidine 40 mg PO BEDTIME 05/06/19 06/06/19 lorazepam 0.5 - 1 mg PO BID PRN 05/06/19 06/06/19 pantoprazole 40 mg PO QAM 05/06/19 06/06/19 sertraline 100 mg PO BEDTIME 05/06/19 06/06/19 simethicone [Gas Relief Ultra 180 mg PO DAILY PRN 05/06/19 06/06/19 Strength] tamsulosin 0.4 mg PO BEDTIME 05/06/19 06/06/19 diltiazem HCl 60 mg PO QAM 06/06/19 06/06/19 diltiazem HCl 120 mg PO QPM 06/06/19 06/06/19 nitroglycerin [Nitrostat] 0.4 mg SUBLINGUAL PRN PRN 06/06/19 06/06/19 Previous Rx's Medication Instructions Recorded naproxen [Naprosyn] 500 mg PO BID PRN #20 tab 06/06/19 prednisone 40 mg PO DAILY #10 tab 06/06/19 Allergies Allergy/AdvReac Type Severity Reaction Status Date / Time Penicillins Allergy Intermediate Rash Verified 06/06/19 12:50 Review of Systems Constitutional Constitutional: Denies chills, Denies fatigue, Denies fever(s), Denies frequent falls, Denies lethargy and Denies weakness Eyes Eyes: Denies change in vision, Denies eye discharge, Denies irritation and Denies loss of vision ENT Ears, Nose, Mouth, and Throat: Denies change in voice, Denies dizziness, Denies neck pain, Denies sore throat and Denies throat swelling Cardiovascular Cardiovascular: Denies chest pain, Denies irregular heart rhythm, Denies lightheadedness, Denies palpitations, Reports dyspnea, Denies dyspnea on exertion and Denies orthopnea Respiratory Respiratory: Denies cough, Reports dyspnea, Denies dyspnea on exertion and Denies wheezing Gastrointestinal Gastrointestinal: Denies abdominal pain, Denies change in bowel habits, Reports dyspepsia, Denies diarrhea, Denies nausea and Denies vomiting Musculoskeletal Musculoskeletal: Denies neck pain and Denies numbness Integumentary/Breasts Skin/Breast: Denies pruritus, Denies erythema, Denies rash and Denies wounds Neurologic Neurologic: Denies behavioral changes, Denies confusion, Denies dizziness, Denies frequent falls, Denies loss of vision, Denies numbness and Denies weakness Psychiatric Psychiatric: Denies anxiety, Denies behavioral changes, Denies confusion, Denies depression, Denies homicidal ideation and Denies suicidal ideation Endocrine Endocrine: Denies fatigue, Denies flushing and Denies palpitations Hematologic/Lymphatic Hematologic/Lymphatic: Denies easy bruising Allergic/Immunologic Allergic/Immunologic: Denies urticaria, Denies throat swelling and Denies wheezing Patient History Medical History (Updated 07/13/20 @ 09:12 by Evens Harding DO) Anxiety Central sleep apnea Chronic low back pain Chronic pain Depression Gastritis Gastroparesis GERD (gastroesophageal reflux disease) History of left heart catheterization Idiopathic peripheral neuropathy Sleep apnea Surgical History History of laminectomy Family History Mother Healthy adult Father No problems noted. Brother Healthy adult Sister Healthy adult Social History household members: spouse Smoking Status: Never smoker alcohol intake: never Smoking Status: Never smoker alcohol intake frequency: 0-2 drinks per day Substance Use Type: does not use Exam Narrative Exam Narrative: GENERAL: [75] year old patient appears stated age. Well-nourished, well-developed patient, in mild distress. Anxious HEAD: Atraumatic. Normocephalic. EYES: Pupils equal round and reactive. Extraocular motions intact. No scleral icterus. No injection or drainage. ENT: Nose without bleeding, purulent drainage. Throat without erythema, tonsillar hypertrophy or exudate. Airway patent. NECK: Trachea midline. Non tender CARDIOVASCULAR: Regular rate and rhythm without murmurs, gallops, or rubs. RESPIRATORY: Clear to auscultation. Breath sounds equal bilaterally. No wheezes, rales, or rhonchi. GASTROINTESTINAL: Abdomen soft, non-tender, nondistended. EXTREMITIES: No edema or joint tenderness. BACK: Nontender without deformity or crepitance. No flank tenderness. NEURO: AOx3. SKIN: No rash or erythema of visible areas Initial Vital Signs Initial Vital Signs: Vital Signs Temperature 99.1 F 07/13/20 07:26 Pulse Rate 88 07/13/20 07:26 Respiratory Rate 22 07/13/20 07:26 Blood Pressure 146/91 H 07/13/20 07:26 Pulse Oximetry 93 07/13/20 07:26 Course Orders Ordered: Discontinued Medications Sodium Chloride (Normal Saline 0.9%) 1,000 mls @ 150 mls/hr IV CONT MARCELINA Last Infusion: 07/13/20 09:40 Dose: 150 mls/hr Documented by: Infusion: 07/13/20 09:38 Dose: 150 mls/hr Documented by: Admin: 07/13/20 07:51 Dose: 150 mls/hr Documented by: HAI Vital Signs Vital signs: Vital Signs - 8 hr 07/13/20 07:26 Temperature 99.1 F Pulse Rate 88 Respiratory Rate 22 Blood Pressure 146/91 H Pulse Oximetry 93 MDM - SOB/Dyspnea Lab Data Result diagrams: 07/13/20 07:45 07/13/20 07:45 Labs: Lab Results 07/13/20 07/13/20 07/13/20 Range/Units 07:45 07:45 07:45 WBC 4.4 L (4.5-11.0) X10^3/uL RBC 4.30 L (4.5-5.9) X10^6/uL Hgb 13.8 (13.5-17.5) g/dL Hct 40.1 L (41-53) % MCV 93.2 (80-100) fL MCH 32.0 (26-34) PG MCHC 34.3 (30-36) % RDW 13.4 (11.6-14.8) % Plt Count 176 (150-400) X10^3/uL Neut % (Auto) 77.7 H (50-75) % Lymph % (Auto) 13.3 L (25-40) % Walton % (Auto) 5.8 (3-14) % Eos % (Auto) 2.5 (2-4) % Baso % (Auto) 0.7 (0-2) % Neut # (Auto) 3400 (5446-7817) /uL Lymph # (Auto) 600 L (8364-0904) /uL Walton # (Auto) 300 (0-900) /uL Eos # (Auto) 100 (0-450) /uL Baso # (Auto) 0 (0-100) /uL D-Dimer < 200 (<230) ng/mL Sodium 135 L (137-145) mmol/L Potassium 3.7 (3.4-5.1) mmol/L Chloride 99 (98-107) mmol/L Carbon Dioxide 33 H (22-32) mmol/L BUN 23 H (9-20) mg/dL Creatinine 0.69 (0.66-1.25) mg/dL Estimated GFR > 60.0 (>60) mL/min BUN/Creatinine Ratio 33.3 H (6-22) Glucose 95 (80-110) mg/dL Lactate (0.7-2.1) mmol/L Calcium 9.5 (8.4-10.2) mg/dL Magnesium 2.1 (1.6-2.3) mg/dL Total Creatine Kinase < 20 L (55-170) U/L CK-MB (CK-2) TNP CK-MB (CK-2) Rel Index TNP Troponin I < 0.012 (0.01-0.034) ng/mL NT-Pro-B Natriuret Pep 52 (<125) pg/mL Procalcitonin 0.05 (<0.5) ng/mL SARS-CoV-2 (PCR) (Negative) 07/13/20 07/13/20 Range/Units 07:45 07:45 WBC (4.5-11.0) X10^3/uL RBC (4.5-5.9) X10^6/uL Hgb (13.5-17.5) g/dL Hct (41-53) % MCV (80-100) fL MCH (26-34) PG MCHC (30-36) % RDW (11.6-14.8) % Plt Count (150-400) X10^3/uL Neut % (Auto) (50-75) % Lymph % (Auto) (25-40) % Walton % (Auto) (3-14) % Eos % (Auto) (2-4) % Baso % (Auto) (0-2) % Neut # (Auto) (3894-6821) /uL Lymph # (Auto) (9949-5300) /uL Walton # (Auto) (0-900) /uL Eos # (Auto) (0-450) /uL Baso # (Auto) (0-100) /uL D-Dimer (<230) ng/mL Sodium (137-145) mmol/L Potassium (3.4-5.1) mmol/L Chloride (98-107) mmol/L Carbon Dioxide (22-32) mmol/L BUN (9-20) mg/dL Creatinine (0.66-1.25) mg/dL Estimated GFR (>60) mL/min BUN/Creatinine Ratio (6-22) Glucose (80-110) mg/dL Lactate 0.7 (0.7-2.1) mmol/L Calcium (8.4-10.2) mg/dL Magnesium (1.6-2.3) mg/dL Total Creatine Kinase (55-170) U/L CK-MB (CK-2) CK-MB (CK-2) Rel Index Troponin I (0.01-0.034) ng/mL NT-Pro-B Natriuret Pep (<125) pg/mL Procalcitonin (<0.5) ng/mL SARS-CoV-2 (PCR) Negative (Negative) Urine Dip Bedside Urine Glucose Negative Bedside Urine Bilirubin - Negative Bedside Urine Ketone - Negative Urine Specific [place] 1.025 Bedside Urine Occult Blood - Negative Bedside Urine pH 6.0 Bedside Urine Protein - Negative Bedside Urine Urobilinogen - Negative Bedside Urine Nitrite - Negative Bedside Urine Leukocytes - Negative Esterase Imaging Data Chest x-ray: Radiologist's Impression: Fran Ruby 75 M [address] [address]XTpi ReportSigned Patient: Fran Ruby [employer] [facility] [employer] [facility]#: [id number]: 7Acct:[id number]/Sex: 75 / MDate of Service: 07/13/20Loc: EDAccession Number: [id number] Procedure: XR chest 1V Ordering Provider: Evens Harding D.O. PROCEDURE: XR CHEST 1V INDICATIONS: dyspnea TECHNIQUE: One view of the chest was acquired. COMPARISON: [facility], , XR CHEST 1V, 06/06/2019, 13:45. FINDINGS: Surgical changes and devices: None. Lungs and pleura: Lungs are clear. No pleural effusions or pneumothorax. Mediastinum: Mediastinal contours appear normal. Heart size is normal. Bones and chest wall: No suspicious bony lesions. Overlying soft tissues appear unremarkable. IMPRESSION: No acute cardiopulmonary pathology. Dictated by: Arden Aranda M.D. on 07/13/2020 at 8:19 Approved by: Arden Aranda M.D. on 07/13/2020 at 8:19 Discharge Plan Departure Patient Disposition: Home Clinical Impression: Sleep apnea Qualifiers: Sleep apnea type: unspecified type Qualified Code(s): G47.30 - Sleep apnea, unspecified Gastritis Qualifiers: Gastritis type: unspecified gastritis Chronicity: chronic Gastritis bleeding: without bleeding Qualified Code(s): K29.50 - Unspecified chronic gastritis without bleeding Activity Restrictions/Additional Instructions: *You have been diagnosed with [chronic shortness of breath, today's evaluation was very reassuring] *What to do: *Continue to take medications as directed *Follow up with your primary care provider in 2-3 days, call for an appointment. Let them know you were seen in the Emergency Department and that we ask that you be seen in follow up. I called them today and they will be expecting a call *Return to ER if you should have any new, worsening or concerning symptoms Prescriptions: No Action famotidine 40 mg tablet 40 mg PO BEDTIME RF: 0 tamsulosin 0.4 mg capsule 0.4 mg PO BEDTIME RF: 0 pantoprazole 40 mg tablet,delayed release (DR/EC) 40 mg PO QAM RF: 0 lorazepam 1 mg tablet 0.5 - 1 mg PO BID PRN (Reason: agitation or anxiety) RF: 0 buprenorphine-naloxone 8-2 mg film 1 film sublingual Q12H RF: 0 Narcan 4 mg/actuation spray,non-aerosol 4 mg INTRANASAL DIRECTED RF: 0 simethicone [Gas Relief Ultra Strength] 180 mg Capsule 180 mg PO DAILY PRN (Reason: gas) RF: 0 sertraline 100 mg tablet 100 mg PO BEDTIME RF: 0 Domperidone 10 mg tablet 5 mg PO TID RF: 0 diltiazem HCl 60 mg capsule,extended release 12 hr 60 mg PO QAM RF: 0 diltiazem HCl 60 mg capsule,extended release 12 hr 120 mg PO QPM RF: 0 nitroglycerin [Nitrostat] 0.4 mg tablet, sublingual 0.4 mg sublingual PRN PRN (Reason: Chest Pain) RF: 0 naproxen [Naprosyn] 500 mg tablet 500 mg PO BID PRN (Reason: pain) Qty: 20 RF: 0 prednisone 20 mg tablet 40 mg PO DAILY Qty: 10 RF: 0 Referrals: Marcell Mackenzie MD [Primary Care Provider] -
[2020-07-13] MEDS: SODIUM CHLORIDE 0.9% 1,000 ML 150 ML IV (07:51)
[2020-07-13 07:57] LABS: Add Manual Diff / Slide Review NO; Basophils Absolute Auto 0 /uL (0-100); Basophils Percent Auto 0.7 % (0-2); Eosinophils Absolute Auto 100 /uL (0-450); Eosinophils Percent Auto 2.5 % (2-4); Hematocrit 40.1 % (41-53); Hemoglobin 13.8 g/dL (13.5-17.5); Lymphocytes Absolute Auto 600 /uL (1100-4500); Lymphocytes Percent Auto 13.3 % (25-40); Mean Corpuscular HGB Conc 34.3 % (30-36); Mean Corpuscular Volume 93.2 fL (80-100); Monocytes Absolute Auto 300 /uL (0-900); Monocytes Percent Auto 5.8 % (3-14); Neutrophils Absolute Auto 3400 /uL (1500-7000); Neutrophils Percent Auto 77.7 % (50-75); Platelet Count 176 X10^3/uL (150-400); Red Cell Distribution Width 13.4 % (11.6-14.8); White Blood Cell Count 4.4 X10^3/uL (4.5-11.0)
[2020-07-13 08:04] VITALS: BP 117/62; PULSE 77; RESP 16; O2SAT 91
[2020-07-13 08:08] LABS: Lactate (Lactic Acid) 0.7 mmol/L (0.7-2.1)
[2020-07-13 08:09] LABS: BUN Creatinine Ratio 33.3 (6-22); Blood Urea Nitrogen 23 mg/dL (9-20); Calcium 9.5 mg/dL (8.4-10.2); Carbon Dioxide 33 mmol/L (22-32); Chloride 99 mmol/L (98-107); Creatine Kinase < 20 U/L (55-170); Estimated Glomerular Filt Rate > 60.0 mL/min (>60); Glucose 95 mg/dL (80-110); HEMOLYSIS < 15 (0-50); Magnesium 2.1 mg/dL (1.6-2.3); Potassium 3.7 mmol/L (3.4-5.1); Sodium 135 mmol/L (137-145)
[2020-07-13 08:12] LABS: COVID19 -Nasal RAPID Negative (Negative); D Dimer < 200 ng/mL (<230)
--- NOTE | 2020-07-13 08:12 | PC.NURSE ---
pt states he uses trilogy at night for apnea. pt states he hasn't found a good setting and is waking up a lot and feeling anxious and short of breath.
[2020-07-13 08:22] LABS: NT-proBNP (BNP-Adult 18+) 52 pg/mL (<125); Troponin I < 0.012 ng/mL (0.01-0.034)
[2020-07-13 08:26] LABS: Procalcitonin 0.05 ng/mL (<0.5)
[2020-07-13 08:30] VITALS: BP 116/61; PULSE 72; RESP 17; O2SAT 93
[2020-07-13 09:00] VITALS: BP 119/60; PULSE 80; RESP 17; O2SAT 94
== END 2020-07-13 09:39 | disposition home or self-care (01) ==
PROVIDERS: Emergency Provider Emergency Medicine; PCP Family Medicine
DX: G47.30 Sleep apnea, unspecified (principal); K29.50 Unspecified chronic gastritis without bleeding; R07.9 Chest pain, unspecified; Z20.822 Contact with and (suspected) exposure to COVID-19
CPT/HCPCS: 36415; 71045; 80048; 81003; 82550; 83605; 83735; 83880; 84145; 84484; 85025; 85379; 87635; 93005; 96360; 96361; 99282; 99284; C9803

== ENCOUNTER 2020-07-20 01:51 | Emergency (ER) | payer MEDICARE, OTHER, SELFPAY ==
[2019-05-06 13:51] VITALS: BMI 23.3
[2020-07-20 02:12] VITALS: BP 117/68; PULSE 78; RESP 20; O2SAT 96; BMI 20.9
--- NOTE | 2020-07-20 02:40 | ED_ITS ---
HPI - SOB/Dyspnea General Chief Complaint: Shortness of Breath/Dyspnea Stated Complaint: difficulty breathing uses ventilator Time Seen by Provider: 07/20/20 02:07 Source: patient Mode of arrival: Ambulatory Limitations: no limitations History of Present Illness HPI Narrative: 75-year-old gentleman with severe sleep apnea causing dramatic sleep deprivation to the point he is beginning to wonder of life is hopeless and clearly is emotionally labile and having difficulty focusing and concentrating. He has tried CPAP and found that it was not effective. He recently was seen at [facility] in [place] with a full cardiac workup in reassured that the reflux type pain that he experiences after a couple of hours with BiPAP is absolutely not cardiac in etiology. He currently has a trilogy and finds that he is able to sleep for 2-3 hours at a time. Eventually he has dramatic enough epigastric pain that he has weakened. He has documented saturations down into the upper 70s while he is sleeping. He wakes up panicked and tremulous. After he is able to calm himself down and use enough Gaviscon to tolerate the epigastric pain he can typically get another 1-2 hours of sleep. He is getting to the point that the dramatic sleep deprivation is becoming a true physical and psychologic emergency. He does have an appointment with his sleep street light repairer later today. He has significant chronic nausea, difficulty with focus and concentration 2 to sleep deprivation. Palpitations and dyspnea when he wakes with low oxygen saturations and he has progressed to the point that he is almost afraid to fall asleep and falling asleep almost mid sentence when talking. Related Data Home Medications Medication Instructions Recorded Confirmed Domperidone 5 mg PO TID 05/06/19 06/06/19 Narcan 4 mg INTRANASAL DIRECTED 05/06/19 06/06/19 buprenorphine-naloxone 1 film SUBLINGUAL Q12H 05/06/19 06/06/19 famotidine 40 mg PO BEDTIME 05/06/19 06/06/19 lorazepam 0.5 - 1 mg PO BID PRN 05/06/19 06/06/19 pantoprazole 40 mg PO QAM 05/06/19 06/06/19 sertraline 100 mg PO BEDTIME 05/06/19 06/06/19 simethicone [Gas Relief Ultra 180 mg PO DAILY PRN 05/06/19 06/06/19 Strength] tamsulosin 0.4 mg PO BEDTIME 05/06/19 06/06/19 diltiazem HCl 60 mg PO QAM 06/06/19 06/06/19 diltiazem HCl 120 mg PO QPM 06/06/19 06/06/19 nitroglycerin [Nitrostat] 0.4 mg SUBLINGUAL PRN PRN 06/06/19 06/06/19 Previous Rx's Medication Instructions Recorded naproxen [Naprosyn] 500 mg PO BID PRN #20 tab 06/06/19 prednisone 40 mg PO DAILY #10 tab 06/06/19 Allergies Allergy/AdvReac Type Severity Reaction Status Date / Time Penicillins Allergy Intermediate Rash Verified 06/06/19 12:50 Review of Systems Review of Systems Narrative: ROS Unobtainable: All systems reviewed & are unremarkable except as noted in HPI and below Patient History Medical History (Updated 07/20/20 @ 06:59 by Korin Reyes MD) Anxiety Central sleep apnea Chronic low back pain Chronic pain Depression Gastritis Gastroparesis GERD (gastroesophageal reflux disease) History of left heart catheterization Idiopathic peripheral neuropathy Sleep apnea Surgical History History of laminectomy Family History Mother Healthy adult Father No problems noted. Brother Healthy adult Sister Healthy adult Social History household members: spouse Smoking Status: Never smoker alcohol intake: never Smoking Status: Never smoker alcohol intake frequency: 0-2 drinks per day Substance Use Type: does not use Exam Narrative Exam Narrative: General: Thin, dramatically sleep deprived, falls asleep mid sentence, able speak in full sentences HEENT: Dry mucous membranes, normal sclera with reactive pupils, Respiratory: Lungs are clear to auscultation, no wheezing no rales no rhonchi. Full and symmetrical air movement Cardiac: Regular rate and rhythm no murmurs no bruits Abdomen: Soft, nontender, good bowel tones, no flank pain Skin: Warm and dry, no rashes Neurologic: Grossly neurologically intact with no obvious asymmetries or abnormalities Extremities: No trauma, well perfused Psych: Cooperative, overwhelmed and somewhat emotionally labile clearly having difficulty concentrating but otherwise appropriate insight and affect Initial Vital Signs Initial Vital Signs: Vital Signs Pulse Rate 78 07/20/20 02:12 Respiratory Rate 20 07/20/20 02:12 Blood Pressure 117/68 07/20/20 02:12 Pulse Oximetry 96 07/20/20 02:12 Course Orders Ordered: ED Orders 07/20/20 02:54 High flow/High humidity nasal NOW Vital Signs Vital signs: Vital Signs - 8 hr 07/20/20 02:12 07/20/20 03:05 07/20/20 06:12 Pulse Rate 78 78 79 Respiratory Rate 20 20 Blood Pressure 117/68 117/68 Pulse Oximetry 96 96 98 07/20/20 06:17 Pulse Rate 79 Respiratory Rate Blood Pressure Pulse Oximetry 98 MDM - SOB/Dyspnea Medical Records Attestation: I reviewed the patient's medical records. MDM Narrative Medical decision making narrative: 75-year-old gentleman with sleep apnea so severe that he is afraid of falling asleep and has dramatic episodes of the oxygenation from which he wakes in a complete panic with increasing nausea and chronic reflux pain. He currently has failed simple nasal cannula oxygen, CPAP and currently is not doing well with a trilogy. He has had a complete cardiac workup that has been reassuring. He is on maximal proton pump inhibitor therapy for the reflux. He has follow-up with his sleep specialist later today and has every intention of questioning him about possible trachea and actual ventilator assisted sleep. He is becoming hopeless and increasingly emotionally labile due to the dramatic sleep deprivation and the recognition of the severe sleep deprivation. He comes in not sure how we can help but clearly is at the end of his rope both physically and emotionally. I offered high-flow oxygen for a number of hours to facilitate at least 3-4 hours of sleep. He has his telehealth appointment with his sleep street light repairer at 9:00 a.m. this morning. Offered to allow him to sleep in the emergency department in and observed setting with high-flow oxygen in place. He was dramatically relieved with the offer of anything that may enable him to obtain a couple of hours sleep as well as reassure him that he is not going to if he does allow himself to fall into a deep sleep. During his time in the ER he has tolerated the high-flow oxygen well with minimal snoring, heart rate remaining in the 70s, oxygen saturations in the upper 90s. He sleeping with the hospital bed angled up a bit and fell into a deep sleep within a few minutes of high-flow oxygen being placed and helping him position himself. 640 am: Approximately 4 hours in to asleep cycle has dramatic awakening with complaints of chest burning, dramatic anxiety, tremor that he reports is absolutely similar to the symptoms that are keeping him from sleeping at home. Of note, physiologically heart rate remained in the mid 70s, saturations remained in the mid 90s and there were no significant blood pressure variations. In discussing findings with him he is visibly an actively focusing on calming himself and deep breathing techniques. Does not describe vivid nightmares in association with this. With the degree of physical hyper arousal and the lack of recall of dysphoric dreams the possibility of nocturnal panic attacks becomes much more realistic. Discharge Plan Departure Patient Disposition: Home Clinical Impression: Panic attack, Sleep deprivation Sleep apnea Qualifiers: Sleep apnea type: unspecified type Qualified Code(s): G47.30 - Sleep apnea, unspecified Acid reflux Qualifiers: Esophagitis presence: esophagitis presence not specified Qualified Code(s): K21.9 - Gastro-esophageal reflux disease without esophagitis Instructions: DI for Panic Disorder Activity Restrictions/Additional Instructions: Thank you for coming in today Your struggle with severe sleep apnea and dramatic sleep deprivation with all of the severe consequences seems incredibly difficult. In the emergency room, for couple of hours, you were placed on high-flow oxygen with cardiac and respiratory monitoring in place and allowed to sleep in a semi recumbent position. You were able to sleep very deeply with oxygen saturations maintained in the upper 90s and heart rate stable and consistent in the mid 70s for approximately 4 hours. You awoke with severe anxiety, hyper arousal in the absence of identifiable hypoxia, cardiac arrhythmia or blood pressure variability. You did not describe any nightmare or dramatic dreams associated with this. This observed phenomenon may meet criteria for being diagnosed as nocturnal panic attacks. Unfortunately, high-flow oxygen is not going to be an option for you at home and sleeping in a highly monitored medical setting is also not going to be an option for you. Please discuss the possibility of nocturnal panic attacks with your sleep street light repairer to see if he has any further recommendations. You are already taking appropriate pain control in the form of Suboxone as well as anxiety control with low-dose lorazepam and sertraline. If there are some indications that prazosin, a blood pressure medication, might be helpful with panic disorder. Please discuss this with your sleep disorder street light repairer during your appointment later this morning. I wish you the very best Prescriptions: No Action famotidine 40 mg tablet 40 mg PO BEDTIME RF: 0 tamsulosin 0.4 mg capsule 0.4 mg PO BEDTIME RF: 0 pantoprazole 40 mg tablet,delayed release (DR/EC) 40 mg PO QAM RF: 0 lorazepam 1 mg tablet 0.5 - 1 mg PO BID PRN (Reason: agitation or anxiety) RF: 0 buprenorphine-naloxone 8-2 mg film 1 film sublingual Q12H RF: 0 Narcan 4 mg/actuation spray,non-aerosol 4 mg INTRANASAL DIRECTED RF: 0 simethicone [Gas Relief Ultra Strength] 180 mg Capsule 180 mg PO DAILY PRN (Reason: gas) RF: 0 sertraline 100 mg tablet 100 mg PO BEDTIME RF: 0 Domperidone 10 mg tablet 5 mg PO TID RF: 0 diltiazem HCl 60 mg capsule,extended release 12 hr 60 mg PO QAM RF: 0 diltiazem HCl 60 mg capsule,extended release 12 hr 120 mg PO QPM RF: 0 nitroglycerin [Nitrostat] 0.4 mg tablet, sublingual 0.4 mg sublingual PRN PRN (Reason: Chest Pain) RF: 0 naproxen [Naprosyn] 500 mg tablet 500 mg PO BID PRN (Reason: pain) Qty: 20 RF: 0 prednisone 20 mg tablet 40 mg PO DAILY Qty: 10 RF: 0 Referrals: Marcell Mackenzie MD [Primary Care Provider] -
[2020-07-20 03:05] VITALS: BP 117/68; PULSE 78; RESP 20; O2SAT 96
--- NOTE | 2020-07-20 03:05 | PC.NURSE ---
RT set up 28% Fio2 40 flow)
[2020-07-20 06:12] VITALS: PULSE 79; O2SAT 98
[2020-07-20 06:17] VITALS: PULSE 79; O2SAT 98
--- NOTE | 2020-07-20 06:28 | PC.NURSE ---
Addendum entered by Elda Irvin R.N. 07/20/20 06:32: MD came to assess patient and help him troubleshoot his symptoms. Original Note: Pt was able to sleep for a couple hours with the high flow nasal cannula but then awoke shaking and anxious with some chest tightness and concern about his respiratory status. His sats remained greater than 90% for the duration of his stay.
[2020-07-20] MEDS: MAG HYDROX/ALUMINUM/SIMETH SUS 20 ML, LIDOCAINE VISCOUS 2% 15 ML PO (07:53)
[2020-07-20 08:00] VITALS: BP 105/57; PULSE 85; RESP 17; O2SAT 96
--- NOTE | 2020-07-20 08:04 | PC.NURSE ---
RN in to discharge, Pt in bed shaking, anxious, reports burning sensation in throat. Dr Horton informed, immediately to room. GI cocktail ordered, administered. 10 minutes after medication, Pt states no relief, 7/[address] Horton informed.
== END 2020-07-20 08:24 | disposition home or self-care (01) ==
PROVIDERS: Emergency Provider Emergency Medicine; PCP Family Medicine
DX: F41.0 Panic disorder [episodic paroxysmal anxiety] (principal); G47.30 Sleep apnea, unspecified; K21.9 Gastro-esophageal reflux disease without esophagitis; Z72.820 Sleep deprivation
CPT/HCPCS: 99283

== ENCOUNTER 2020-09-10 02:01 | Emergency (ER) | payer MEDICARE, OTHER, SELFPAY ==
[2019-05-06 13:51] VITALS: BMI 23.3
[2020-09-10] VITALS (24 sets, daily range): BP systolic 119–151; BP diastolic 57–74; PULSE 73–106; RESP 9–24; TEMP 36.6; O2SAT 88–100; BMI 21.2
--- NOTE | 2020-09-10 02:30 | RT ---
RT consulted for pt. Pt is having difficulty sleeping due to dry throat and has central sleep apnea. Pt is not tolerating AVAPS for on home trilogy unit from [facility]. Pt did not bring home unit. States that AVAPS is on very minimal settings and it still cabral throat. Educated pt about humidification, settings, and possible underlying causes for the irritation in throat. Pt came in 2 months ago for similar c/c and was placed on HHFNC. Discussed with Dr. Horta plan of care and agreed to place pt on HHFNC. Placed pt on HHFNC at 0247 at 35 LPM and 30% FiO2. RN aware and MD aware.
--- NOTE | 2020-09-10 02:32 | ED.GENADULT ---
HPI - General Adult <Timmy Horta MD - Last Filed: 09/20/20 18:57> General Chief complaint: Shortness of Breath/Dyspnea Stated complaint: difficulty breathing Time Seen by Provider: 09/10/20 02:02 Source: patient and family History of Present Illness HPI narrative: Patient here with his . Complains of burning throat and insomnia. Patient has central apnea. Extensively worked up by his manager critical care unit in [place], Dr. Neal. Problem started back in 2019. Started with CPAP and started with symptoms as he describes today. He has nausea and reflux. Has burning of the throat because of the airflow. He then transitioned to BiPAP. Same problems occurred. Gets very little sleep. He recently switched to AVAPS a couple months ago. He has minimal settings on pressures and tidal volume. He has acid reflux which makes it worse. He has had significant weight loss as well. His manager critical care unit has been aware of all these changes in him. Last seen here in July. Please see no below. Denies any chest pain or dyspnea. He states he is just tired. Average 1.5 hours of sleep a night. He did get 7 hours sleep a few nights ago but does not know what was different about that night. Did receive high-flow oxygen therapy last time. Please see no below. He would like to try that again tonight to help get some sleep. Below is the note from July 20, 2020 at 2:40 a.m. [facility] - SOB/Dyspnea Medical Records Attestation: I reviewed the patient's medical records. [facility] Narrative Medical decision making narrative: 75-year-old gentleman with sleep apnea so severe that he is afraid of falling asleep and has dramatic episodes of the oxygenation from which he wakes in a complete panic with increasing nausea and chronic reflux pain. He currently has failed simple nasal cannula oxygen, CPAP and currently is not doing well with a trilogy. He has had a complete cardiac workup that has been reassuring. He is on maximal proton pump inhibitor therapy for the reflux. He has follow-up with his sleep specialist later today and has every intention of questioning him about possible trachea and actual ventilator assisted sleep. He is becoming hopeless and increasingly emotionally labile due to the dramatic sleep deprivation and the recognition of the severe sleep deprivation. He comes in not sure how we can help but clearly is at the end of his rope both physically and emotionally. I offered high-flow oxygen for a number of hours to facilitate at least 3-4 hours of sleep. He has his telehealth appointment with his sleep manager critical care unit at 9:00 a.m. this morning. Offered to allow him to sleep in the emergency department in and observed setting with high-flow oxygen in place. He was dramatically relieved with the offer of anything that may enable him to obtain a couple of hours sleep as well as reassure him that he is not going to if he does allow himself to fall into a deep sleep. During his time in the ER he has tolerated the high-flow oxygen well with minimal snoring, heart rate remaining in the 70s, oxygen saturations in the upper 90s. He sleeping with the hospital bed angled up a bit and fell into a deep sleep within a few minutes of high-flow oxygen being placed and helping him position himself. 640 am: Approximately 4 hours in to asleep cycle has dramatic awakening with complaints of chest burning, dramatic anxiety, tremor that he reports is absolutely similar to the symptoms that are keeping him from sleeping at home. Of note, physiologically heart rate remained in the mid 70s, saturations remained in the mid 90s and there were no significant blood pressure variations. In discussing findings with him he is visibly an actively focusing on calming himself and deep breathing techniques. Does not describe vivid nightmares in association with this. With the degree of physical hyper arousal and the lack of recall of dysphoric dreams the possibility of nocturnal panic attacks becomes much more realistic. Related Data Home Medications Medication Instructions Recorded Confirmed Domperidone 5 mg PO TID 05/06/19 06/06/19 Narcan 4 mg INTRANASAL DIRECTED 05/06/19 06/06/19 buprenorphine-naloxone 1 film SUBLINGUAL Q12H 05/06/19 06/06/19 famotidine 40 mg PO BEDTIME 05/06/19 06/06/19 lorazepam 0.5 - 1 mg PO BID PRN 05/06/19 06/06/19 pantoprazole 40 mg PO QAM 05/06/19 06/06/19 sertraline 100 mg PO BEDTIME 05/06/19 06/06/19 simethicone [Gas Relief Ultra 180 mg PO DAILY PRN 05/06/19 06/06/19 Strength] tamsulosin 0.4 mg PO BEDTIME 05/06/19 06/06/19 diltiazem HCl 60 mg PO QAM 06/06/19 06/06/19 diltiazem HCl 120 mg PO QPM 06/06/19 06/06/19 nitroglycerin [Nitrostat] 0.4 mg SUBLINGUAL PRN PRN 06/06/19 06/06/19 Previous Rx's Medication Instructions Recorded naproxen [Naprosyn] 500 mg PO BID PRN #20 tab 06/06/19 prednisone 40 mg PO DAILY #10 tab 06/06/19 Allergies Allergy/AdvReac Type Severity Reaction Status Date / Time Penicillins Allergy Intermediate Rash Verified 06/06/19 12:50 Review of Systems <Timmy Horta MD - Last Filed: 09/20/20 18:57> Review of Systems Narrative: GENERAL: Denies chills, complains of fatigue, malaise, denies fever, sweats. HEENT: Denies sinus pain, ear pain, complains of sore throat, dry throat RESPIRATORY: Denies dyspnea, cough CARDIOVASCULAR: Denies chest pain, palpitations GASTROINTESTINAL: Denies nausea, vomiting, abdominal pain : Denies dysuria, frequency, hematuria MUSCULOSKELETAL: denies muscle or bony pain SKIN: Denies rash, skin lesions NEUROLOGIC: Denies weakness, numbness ROS Unobtainable: All systems reviewed & are unremarkable except as noted in HPI and below Patient History <Timmy Horta MD - Last Filed: 09/20/20 18:57> Medical History (Updated 09/10/20 @ 13:37 by Petros Chiang DO) Anxiety Central sleep apnea Chronic low back pain Chronic pain Depression Gastritis Gastroparesis GERD (gastroesophageal reflux disease) History of left heart catheterization Idiopathic peripheral neuropathy Sleep apnea Surgical History History of laminectomy Family History Mother Healthy adult Father No problems noted. Brother Healthy adult Sister Healthy adult Social History household members: spouse Smoking Status: Never smoker alcohol intake: never Smoking Status: Never smoker alcohol intake frequency: 0-2 drinks per day Substance Use Type: does not use Exam <Timmy Horta MD - Last Filed: 09/20/20 18:57> Narrative Exam Narrative: GENERAL: in no distress, not toxic not dyspneic, does appear very tired HEAD: Normocephalic. EYES: Pupils equal round No scleral icterus. No injection no discharge ENT: Dry lips and oral cavity and pharynx. Dry nasal mucosa NECK: Trachea midline. CARDIOVASCULAR: Regular rate and rhythm without murmurs RESPIRATORY: Clear to auscultation. Breath sounds equal bilaterally. No wheezes, rales, or rhonchi. GASTROINTESTINAL: Abdomen soft, non-tender EXTREMITIES: No gross deformities. BACK: No flank tenderness. NEURO: AOx4. SKIN: Warm and dry PSYCH: Not anxious, is cooperative Initial Vital Signs Initial Vital Signs: Vital Signs Pulse Oximetry 88 L 09/10/20 02:22 <Petros Chiang DO - Last Filed: 09/10/20 16:52> Initial Vital Signs Initial Vital Signs: Vital Signs Pulse Oximetry 88 L 09/10/20 02:22 Course <Timmy Horta MD - Last Filed: 09/20/20 18:57> Orders Ordered: Discontinued Medications Acetaminophen (Acetaminophen 325 Mg Tablet) 650 mg PO NOW ONE Stop: 09/10/20 05:54 Last Admin: 09/10/20 07:15 Dose: Not Given Documented by: AN Al Hydrox/Mg Hydrox/Simethicone 20 ml/ Lidocaine HCl 15 ml 0 ml PO NOW ONE Stop: 09/10/20 07:07 Last Admin: 09/10/20 07:12 Dose: 20 ml Documented by: RUIZ Sodium Chloride (Normal Saline 0.9%) 1,000 mls @ 1,000 mls/hr IV BOLUS ONE Stop: 09/10/20 03:27 Last Infusion: 09/10/20 04:16 Dose: 0 mls/hr Documented by: Admin: 09/10/20 02:46 Dose: 1,000 mls/hr Documented by: RUIZ Ketorolac Tromethamine (Ketorolac 30 Mg/Ml Vial) 15 mg IV NOW ONE Stop: 09/10/20 03:42 Last Admin: 09/10/20 03:43 Dose: 15 mg Documented by: RUIZ Ondansetron HCl (Ondansetron 4 Mg/2 Ml Inj) 4 mg IV NOW ONE Stop: 09/10/20 09:43 Last Admin: 09/10/20 09:49 Dose: 4 mg Documented by: WILDA Pantoprazole Sodium (Pantoprazole 40 Mg Vial) 40 mg IV NOW ONE Stop: 09/10/20 04:09 Last Admin: 09/10/20 04:11 Dose: 40 mg Documented by: RUIZ Vital Signs Vital signs: Vital Signs - 8 hr 09/10/20 09:00 09/10/20 09:30 09/10/20 09:31 Pulse Rate 95 H 97 H Respiratory Rate 22 16 15 Blood Pressure 122/74 149/64 H Pulse Oximetry 96 92 92 09/10/20 10:00 09/10/20 10:30 09/10/20 10:38 Pulse Rate 82 82 Respiratory Rate 22 16 Blood Pressure 151/72 H 144/68 H Pulse Oximetry 100 99 97 09/10/20 10:39 09/10/20 11:00 09/10/20 11:01 Pulse Rate 105 H 106 H Respiratory Rate 22 24 Blood Pressure 123/57 L Pulse Oximetry 99 96 97 09/10/20 11:30 09/10/20 11:31 09/10/20 12:00 Pulse Rate 84 79 97 H Respiratory Rate 19 9 L 20 Blood Pressure 134/62 Pulse Oximetry 99 97 99 09/10/20 12:30 09/10/20 13:00 09/10/20 13:30 Pulse Rate 81 106 H 85 Respiratory Rate 9 L 20 13 Blood Pressure 149/71 H 127/60 127/60 Pulse Oximetry 91 96 95 <Petros Chiang DO - Last Filed: 09/10/20 16:52> Orders Ordered: Discontinued Medications Acetaminophen (Acetaminophen 325 Mg Tablet) 650 mg PO NOW ONE Stop: 09/10/20 05:54 Last Admin: 09/10/20 07:15 Dose: Not Given Documented by: AN Al Hydrox/Mg Hydrox/Simethicone 20 ml/ Lidocaine HCl 15 ml 0 ml PO NOW ONE Stop: 09/10/20 07:07 Last Admin: 09/10/20 07:12 Dose: 20 ml Documented by: RUIZ Sodium Chloride (Normal Saline 0.9%) 1,000 mls @ 1,000 mls/hr IV BOLUS ONE Stop: 09/10/20 03:27 Last Infusion: 09/10/20 04:16 Dose: 0 mls/hr Documented by: Admin: 09/10/20 02:46 Dose: 1,000 mls/hr Documented by: RUIZ Ketorolac Tromethamine (Ketorolac 30 Mg/Ml Vial) 15 mg IV NOW ONE Stop: 09/10/20 03:42 Last Admin: 09/10/20 03:43 Dose: 15 mg Documented by: RUIZ Ondansetron HCl (Ondansetron 4 Mg/2 Ml Inj) 4 mg IV NOW ONE Stop: 09/10/20 09:43 Last Admin: 09/10/20 09:49 Dose: 4 mg Documented by: WILDA Pantoprazole Sodium (Pantoprazole 40 Mg Vial) 40 mg IV NOW ONE Stop: 09/10/20 04:09 Last Admin: 09/10/20 04:11 Dose: 40 mg Documented by: RUIZ Vital Signs Vital signs: Vital Signs - 8 hr 09/10/20 09:00 09/10/20 09:30 09/10/20 09:31 Pulse Rate 95 H 97 H Respiratory Rate 22 16 15 Blood Pressure 122/74 149/64 H Pulse Oximetry 96 92 92 09/10/20 10:00 09/10/20 10:30 09/10/20 10:38 Pulse Rate 82 82 Respiratory Rate 22 16 Blood Pressure 151/72 H 144/68 H Pulse Oximetry 100 99 97 09/10/20 10:39 09/10/20 11:00 09/10/20 11:01 Pulse Rate 105 H 106 H Respiratory Rate 22 24 Blood Pressure 123/57 L Pulse Oximetry 99 96 97 09/10/20 11:30 09/10/20 11:31 09/10/20 12:00 Pulse Rate 84 79 97 H Respiratory Rate 19 9 L 20 Blood Pressure 134/62 Pulse Oximetry 99 97 99 09/10/20 12:30 09/10/20 13:00 09/10/20 13:30 Pulse Rate 81 106 H 85 Respiratory Rate 9 L 20 13 Blood Pressure 149/71 H 127/60 127/60 Pulse Oximetry 91 96 95 Medical Decision Making <Timmy Horta MD - Last Filed: 09/20/20 18:57> Medical Records Medical records reviewed: Yes I reviewed the patient's medical records. Lab Data Lab results reviewed: Yes I reviewed the patient's lab results. Result diagrams: 09/10/20 02:35 09/10/20 02:35 Labs: Lab Results 09/10/20 09/10/20 Range/Units 02:35 02:35 WBC 2.5 L (4.5-11.0) X10^3/uL RBC 3.76 L (4.5-5.9) X10^6/uL Hgb 12.3 L (13.5-17.5) g/dL Hct 35.3 L (41-53) % MCV 94.0 (80-100) fL MCH 32.6 (26-34) PG MCHC 34.7 (30-36) % RDW 13.3 (11.6-14.8) % Plt Count 156 (150-400) X10^3/uL Neut % (Auto) 61.0 (50-75) % Lymph % (Auto) 24.5 L (25-40) % Dickinson % (Auto) 9.9 (3-14) % Eos % (Auto) 3.6 (2-4) % Baso % (Auto) 1.0 (0-2) % Neut # (Auto) 1500 (9120-0517) /uL Lymph # (Auto) 600 L (9891-7663) /uL Dickinson # (Auto) 200 (0-900) /uL Eos # (Auto) 100 (0-450) /uL Baso # (Auto) 0 (0-100) /uL Sodium 135 L (137-145) mmol/L Potassium 3.3 L (3.4-5.1) mmol/L Chloride 99 (98-107) mmol/L Carbon Dioxide 30 (22-32) mmol/L BUN 15 (9-20) mg/dL Creatinine 0.80 (0.66-1.25) mg/dL Estimated GFR > 60.0 (>60) mL/min BUN/Creatinine Ratio 18.8 (6-22) Glucose 104 (80-110) mg/dL Calcium 9.2 (8.4-10.2) mg/dL Total Bilirubin 0.5 (0.2-1.3) mg/dL AST 24 (17-59) IU/L ALT 22 (<50) IU/L Alkaline Phosphatase 44 (38-126) U/L Total Protein 6.0 L (6.3-8.2) g/dL Albumin 3.8 (3.5-5.0) g/dL Globulin 2.2 (1.7-4.1) g/dL Albumin/Globulin Ratio 1.7 (1.0-2.8) MDM Narrative Medical decision making narrative: No chest x-ray or EKG or heart enzymes indicated this time. Patient here for intolerance to his AVAPS, as well as sleep apnea/insomnia <Petros Chiang DO - Last Filed: 09/10/20 16:52> Lab Data Labs: Lab Results 09/10/20 09/10/20 Range/Units 02:35 02:35 WBC 2.5 L (4.5-11.0) X10^3/uL RBC 3.76 L (4.5-5.9) X10^6/uL Hgb 12.3 L (13.5-17.5) g/dL Hct 35.3 L (41-53) % MCV 94.0 (80-100) fL MCH 32.6 (26-34) PG MCHC 34.7 (30-36) % RDW 13.3 (11.6-14.8) % Plt Count 156 (150-400) X10^3/uL Neut % (Auto) 61.0 (50-75) % Lymph % (Auto) 24.5 L (25-40) % Dickinson % (Auto) 9.9 (3-14) % Eos % (Auto) 3.6 (2-4) % Baso % (Auto) 1.0 (0-2) % Neut # (Auto) 1500 (4418-3820) /uL Lymph # (Auto) 600 L (5561-1975) /uL Dickinson # (Auto) 200 (0-900) /uL Eos # (Auto) 100 (0-450) /uL Baso # (Auto) 0 (0-100) /uL Sodium 135 L (137-145) mmol/L Potassium 3.3 L (3.4-5.1) mmol/L Chloride 99 (98-107) mmol/L Carbon Dioxide 30 (22-32) mmol/L BUN 15 (9-20) mg/dL Creatinine 0.80 (0.66-1.25) mg/dL Estimated GFR > 60.0 (>60) mL/min BUN/Creatinine Ratio 18.8 (6-22) Glucose 104 (80-110) mg/dL Calcium 9.2 (8.4-10.2) mg/dL Total Bilirubin 0.5 (0.2-1.3) mg/dL AST 24 (17-59) IU/L ALT 22 (<50) IU/L Alkaline Phosphatase 44 (38-126) U/L Total Protein 6.0 L (6.3-8.2) g/dL Albumin 3.8 (3.5-5.0) g/dL Globulin 2.2 (1.7-4.1) g/dL Albumin/Globulin Ratio 1.7 (1.0-2.8) MDM Narrative Medical decision making narrative: Dr Chiang: Received turned over. Reviewed patient's history and physical. Patient has remained stable this morning. Was seen by social work per recommendation from night provider. Please see the social work note for complete information. Patient is safe for discharge. He was given return precautions and follow-up instructions. He expressed understanding and agreement. Discharge Plan Departure Patient Disposition: Home Clinical Impression: Sleep apnea Instructions: Sleep Apnea Activity Restrictions/Additional Instructions: I recommend that you continue all of your medications as directed. Today contact your primary provider for a follow-up. Also recommend that you ask for a referral for palliative care from your primary doctor through [facility]. You can also contact our social work here at the hospital at [phone]. Prescriptions: No Action famotidine 40 mg tablet 40 mg PO BEDTIME RF: 0 tamsulosin 0.4 mg capsule 0.4 mg PO BEDTIME RF: 0 pantoprazole 40 mg tablet,delayed release (DR/EC) 40 mg PO QAM RF: 0 lorazepam 1 mg tablet 0.5 - 1 mg PO BID PRN (Reason: agitation or anxiety) RF: 0 buprenorphine-naloxone 8-2 mg film 1 film sublingual Q12H RF: 0 Narcan 4 mg/actuation spray,non-aerosol 4 mg INTRANASAL DIRECTED RF: 0 simethicone [Gas Relief Ultra Strength] 180 mg Capsule 180 mg PO DAILY PRN (Reason: gas) RF: 0 sertraline 100 mg tablet 100 mg PO BEDTIME RF: 0 Domperidone 10 mg tablet 5 mg PO TID RF: 0 diltiazem HCl 60 mg capsule,extended release 12 hr 60 mg PO QAM RF: 0 diltiazem HCl 60 mg capsule,extended release 12 hr 120 mg PO QPM RF: 0 nitroglycerin [Nitrostat] 0.4 mg tablet, sublingual 0.4 mg sublingual PRN PRN (Reason: Chest Pain) RF: 0 naproxen [Naprosyn] 500 mg tablet 500 mg PO BID PRN (Reason: pain) Qty: 20 RF: 0 prednisone 20 mg tablet 40 mg PO DAILY Qty: 10 RF: 0 Referrals: Marcell Mackenzie MD [Primary Care Provider] -
[2020-09-10 02:44] LABS: Add Manual Diff / Slide Review NO; Basophils Absolute Auto 0 /uL (0-100); Eosinophils Absolute Auto 100 /uL (0-450); Eosinophils Percent Auto 3.6 % (2-4); Hematocrit 35.3 % (41-53); Hemoglobin 12.3 g/dL (13.5-17.5); Lymphocytes Absolute Auto 600 /uL (1100-4500); Lymphocytes Percent Auto 24.5 % (25-40); Mean Corpuscular HGB Conc 34.7 % (30-36); Mean Corpuscular Hemoglobin 32.6 PG (26-34); Monocytes Absolute Auto 200 /uL (0-900); Monocytes Percent Auto 9.9 % (3-14); Neutrophils Absolute Auto 1500 /uL (1500-7000); Platelet Count 156 X10^3/uL (150-400); Red Blood Cell Count 3.76 X10^6/uL (4.5-5.9); Red Cell Distribution Width 13.3 % (11.6-14.8); White Blood Cell Count 2.5 X10^3/uL (4.5-11.0)
[2020-09-10] MEDS: SODIUM CHLORIDE 0.9% 1,000 ML 1000 ML IV (02:46)
[2020-09-10 02:56] LABS: Alanine Aminotransferase 22 IU/L (<50); Albumin 3.8 g/dL (3.5-5.0); Albumin Globulin Ratio 1.7 (1.0-2.8); Alkaline Phosphatase 44 U/L (38-126); Aspartate Aminotransferase 24 IU/L (17-59); BUN Creatinine Ratio 18.8 (6-22); Bilirubin Total 0.5 mg/dL (0.2-1.3); Blood Urea Nitrogen 15 mg/dL (9-20); Calcium 9.2 mg/dL (8.4-10.2); Carbon Dioxide 30 mmol/L (22-32); Chloride 99 mmol/L (98-107); Estimated Glomerular Filt Rate > 60.0 mL/min (>60); Globulin 2.2 g/dL (1.7-4.1); Glucose 104 mg/dL (80-110); HEMOLYSIS < 15 (0-50); Potassium 3.3 mmol/L (3.4-5.1); Sodium 135 mmol/L (137-145)
[2020-09-10] MEDS: KETOROLAC 30 MG/ML VIAL 15 MG IV (03:43)
[2020-09-10] MEDS: PANTOPRAZOLE 40 MG VIAL IV (04:11)
--- NOTE | 2020-09-10 06:27 | PC.NURSE ---
Pt has slept off and on after getting on heated high flow, at 0610 pt reported increased pain to chest that woke him, received orders for APAP and offered it to the pt and he asked that he not take it at this time. Can we hold off on that for now, maybe later?. Pt using urinal with 1PA, for safety.
[2020-09-10] MEDS: MAG HYDROX/ALUMINUM/SIMETH SUS 20 ML, LIDOCAINE VISCOUS 2% 15 ML PO (07:12)
--- NOTE | 2020-09-10 09:13 | PC.NURSE ---
Pt states that he is in a good amount of pain and is tremulous. Pt says that when he experiences pain he starts to shake and usually takes 8mg Suboxone and has some with him from home. okayed for pt to take his home dose.
[2020-09-10] MEDS: ONDANSETRON 4 MG/2 ML INJ IV (09:49)
--- NOTE | 2020-09-10 09:52 | PC.NURSE ---
pt took home dose of 0.5mg of PO ativan with MD smiley
--- NOTE | 2020-09-10 10:38 | RT ---
Pt requested to be taken off HFNC and placed back on his N/C. Pt placed on 2 lpm nc without incident and no distress noted. Sao2 @99% on 2lpm. Pt resting and asleep. Pt states he feels much better
--- NOTE | 2020-09-10 12:24 | PC.NURSE ---
SILVIA Piper speaking with pt and
--- NOTE | 2020-09-10 13:10 | CM.SWNOTE ---
Addendum entered by Feliz Charles 09/10/20 13:38: [employer] faxes referral to [facility] and receives fax confirmation at [phone]. Original Note: [employer] Note [employer] consult requested for patient. Patient is a 75 y/o male who presents to this ED for difficulty breathing and concerns related to central sleep apnea. Patient's insurance is listed as Medicare and [facility]. W[employer] SE[employer]ER enters room and meets with patient, patient's Cara, patient's caregiver Priya, and patient's daughter via speakerphone. Patient explains that he has suffered from chronic pain since 2006 and has been on pain management since this time. Patient states he developed central sleep apnea in 2019, and explains that, due to his long-term use of opioids for pain management, he also has hypersensitivity. Patient reports that he had tried a CPAP machine but it resulted in GI problems due to high airflow, and the BiPAP machine that he used created a burning feeling in his esophagus that made it too difficult to use. Patient reports that he currently uses an AVAP machine, but that he gets 7 hours of sleep twice a month and usually only sleeps between 1 hour and 2.5 hours at a time. Patient reports that he has lost 40 lbs in past two years due to chronic sleep deprivation. Patient states he believes he wakes up due to his central sleep apnea but explains that he awakens to a pain response every time he wakes up. Patient reports he currently is prescribed suboxone for pain, which he states is helpful during the day. Patient also reports he has been prescribed some medication to help with stress overnight, but still awakens with a pain response. Patient reports he has a robust team of specialists that he is currently working with including his PCP, supervisor crack off, sleep specialist, clinical neuropsychologist, [employer]ER, pain management team, and neurologist. Family reports that patient's sleep deprivation has created a strain on the family as patient's is unable to sleep more than 3 hours at a time due to having to care for him. Patient's family reports that caregiver Priya was hired this week and will be a live in healthcare sales representative. Patient explains he is interested in palliative consult due to longevity of pain, support in accessing in home resources, and psychiatry. [employer]ER discusses HH and family expresses interest. Patient and family state they have no preference on HH agency at this time, and are provided with medicare approved facilty list. Family is informed that referral will be sent to [facility] based on hospital rotation. [employer] obtains signature on F2F form from ED provider Dr. Chiang. W[employer] SE[employer]ER contacts [facility] to discuss potential palliative care consult. [facility] informs W[employer] that this process must be initiated through PCP. [employer] SE[employer]ER explains this to patient's , who indicates understanding. W[employer] SE[employer]ER contacts [facility] to inquire about any potential openings. W[employer] SE[employer]ER is informed that [facility] currently has no openings or waitlist. W[employer] SE[employer]ER informs patient of this. Patient will seek additional psychiatric support through [facility]. Plan: Patient and family to d/c to home. Dr. Chiang agreeable to put contact info for ED W[employer]ER, instructions for initiating palliative referral from PCP, and HH info in d/c notes. [employer] to submit referral to [facility]. SILVIA Santana
== END 2020-09-10 14:12 | disposition home or self-care (01) ==
PROVIDERS: Emergency Medicine; Emergency Provider Emergency Medicine; PCP Family Medicine
DX: G47.30 Sleep apnea, unspecified (principal); R06.02 Shortness of breath; R11.0 Nausea; R07.9 Chest pain, unspecified
CPT/HCPCS: 36415; 80053; 85025; 96361; 96374; 96375; 99284; 99285; C9113; J1885; J2405

== ENCOUNTER 2020-10-01 16:59 | Emergency (ER) | payer MEDICARE, OTHER, SELFPAY ==
[2019-05-06 13:51] VITALS: BMI 23.3
[2020-10-01 17:04] VITALS: BP 132/68; PULSE 90; RESP 14; TEMP 36.5; O2SAT 98; BMI 20.9
--- NOTE | 2020-10-01 17:16 | DI.RAD.S_ITS ---
PROCEDURE: XR CHEST 1V INDICATIONS: chest pain TECHNIQUE: One view of the chest was acquired. COMPARISON: [facility], CR, XR CHEST 1V, 05/06/2019, 9:49. [facility], CR, XR CHEST 1V, 06/06/2019, 13:45. [facility], CR, XR CHEST 1V, 07/13/2020, 7:55. FINDINGS: Surgical changes and devices: None. Lungs and pleura: Lungs are clear, yet hyperexpanded. No pleural effusions or pneumothorax. Mediastinum: Mediastinal contours appear normal. Heart size is normal. Bones and chest wall: No suspicious bony lesions. Age-appropriate bony degenerative changes are seen. Overlying soft tissues appear unremarkable. IMPRESSION: Hyperexpanded lungs, without an acute cardiopulmonary process identified. Dictated by: Pratik Xiong M.D. on 10/01/2020 at 16:39 Approved by: Pratik Xiong M.D. on 10/01/2020 at 16:40
--- NOTE | 2020-10-01 18:08 | ED.CHESTPAIN ---
HPI - Chest Pain General Chief Complaint: Chest Pain Stated Complaint: sent for burning feeling in esophagus Time Seen by Provider: 10/01/20 18:04 Source: patient Mode of arrival: Ambulatory Limitations: no limitations History of Present Illness HPI narrative: 75-year-old male nonsmoker with history of gastritis presents with a chief complaint of a burning in his throat that is reminiscent of prior episodes of gastritis and esophagitis. Initially his discomfort seemed to be made worse by motion, eating and drinking and associated with a burning sensation. He typically will take viscous lidocaine at home which she had done but did not seem to help at which point he decided to present to the emergency department for further evaluation. He denies any radiation of his pain. He denies associated symptoms such as dizziness, weakness, lightheadedness. He has had no shortness of breath, cough nor fever or chills. MD complaint: other Onset (ago): hour(s) Duration: constant Onset: during rest Pain location: epigastric Severity: moderate Quality: other Pain radiation: none Relieving factors: nothing Exacerbating factors: eating Treatments prior to arrival chest pain: other Related Data Home Medications Medication Instructions Recorded Confirmed Domperidone 5 mg PO TID 05/06/19 06/06/19 Narcan 4 mg INTRANASAL DIRECTED 05/06/19 06/06/19 buprenorphine-naloxone 1 film SUBLINGUAL Q12H 05/06/19 06/06/19 famotidine 40 mg PO BEDTIME 05/06/19 06/06/19 lorazepam 0.5 - 1 mg PO BID PRN 05/06/19 06/06/19 pantoprazole 40 mg PO QAM 05/06/19 06/06/19 sertraline 100 mg PO BEDTIME 05/06/19 06/06/19 simethicone [Gas Relief Ultra 180 mg PO DAILY PRN 05/06/19 06/06/19 Strength] tamsulosin 0.4 mg PO BEDTIME 05/06/19 06/06/19 diltiazem HCl 60 mg PO QAM 06/06/19 06/06/19 diltiazem HCl 120 mg PO QPM 06/06/19 06/06/19 nitroglycerin [Nitrostat] 0.4 mg SUBLINGUAL PRN PRN 06/06/19 06/06/19 Previous Rx's Medication Instructions Recorded naproxen [Naprosyn] 500 mg PO BID PRN #20 tab 06/06/19 prednisone 40 mg PO DAILY #10 tab 06/06/19 Allergies Allergy/AdvReac Type Severity Reaction Status Date / Time Penicillins Allergy Intermediate Rash Verified 10/01/20 17:17 Review of Systems Constitutional Constitutional: Denies chills, Denies fatigue, Denies fever(s), Denies frequent falls, Denies lethargy and Denies weakness Eyes Eyes: Denies change in vision, Denies eye discharge, Denies irritation and Denies loss of vision ENT Ears, Nose, Mouth, and Throat: Denies change in voice, Denies dizziness, Denies neck pain, Denies sore throat and Denies throat swelling Cardiovascular Cardiovascular: Denies chest pain, Denies irregular heart rhythm, Denies lightheadedness, Denies palpitations, Denies dyspnea, Denies dyspnea on exertion and Denies orthopnea Respiratory Respiratory: Denies cough, Denies dyspnea, Denies dyspnea on exertion and Denies wheezing Gastrointestinal Gastrointestinal: Denies abdominal pain, Denies change in bowel habits, Denies diarrhea, Denies nausea and Denies vomiting Musculoskeletal Musculoskeletal: Denies neck pain and Denies numbness Integumentary/Breasts Skin/Breast: Denies pruritus, Denies erythema, Denies rash and Denies wounds Neurologic Neurologic: Denies behavioral changes, Denies confusion, Denies dizziness, Denies frequent falls, Denies loss of vision, Denies numbness and Denies weakness Psychiatric Psychiatric: Denies anxiety, Denies behavioral changes, Denies confusion, Denies depression, Denies homicidal ideation and Denies suicidal ideation Endocrine Endocrine: Denies fatigue, Denies flushing and Denies palpitations Hematologic/Lymphatic Hematologic/Lymphatic: Denies easy bruising Allergic/Immunologic Allergic/Immunologic: Denies urticaria, Denies throat swelling and Denies wheezing Patient History Medical History (Updated 10/01/20 @ 20:30 by Evens Harding DO) Anxiety Central sleep apnea Chronic low back pain Chronic pain Depression Gastritis Gastroparesis GERD (gastroesophageal reflux disease) History of left heart catheterization Idiopathic peripheral neuropathy Sleep apnea Surgical History History of laminectomy Family History Mother Healthy adult Father No problems noted. Brother Healthy adult Sister Healthy adult Social History household members: spouse Smoking Status: Never smoker alcohol intake: never Smoking Status: Never smoker alcohol intake frequency: 0-2 drinks per day Substance Use Type: does not use Exam Narrative Exam Narrative: GENERAL: [] year old patient appears stated age. Well-nourished, well-developed patient, in mild distress. HEAD: Atraumatic. Normocephalic. EYES: Pupils equal round and reactive. Extraocular motions intact. No scleral icterus. No injection or drainage. ENT: Nose without bleeding, purulent drainage. Throat without erythema, tonsillar hypertrophy or exudate. Airway patent. NECK: Trachea midline. Non tender CARDIOVASCULAR: Regular rate and rhythm without murmurs, gallops, or rubs. RESPIRATORY: Clear to auscultation. Breath sounds equal bilaterally. No wheezes, rales, or rhonchi. GASTROINTESTINAL: Abdomen soft, non-tender, nondistended. EXTREMITIES: No edema or joint tenderness. BACK: Nontender without deformity or crepitance. No flank tenderness. NEURO: AOx3. SKIN: No rash or erythema of visible areas Initial Vital Signs Initial Vital Signs: Vital Signs Temperature 97.7 F 10/01/20 17:04 Pulse Rate 90 10/01/20 17:04 Respiratory Rate 14 10/01/20 17:04 Blood Pressure 132/68 10/01/20 17:04 Pulse Oximetry 98 10/01/20 17:04 Course Course Course Narrative: Patient with complete resolution of symptoms over duration of visit. EKG is nonischemic, history very reminiscent of prior episodes of gastritis. Labs, imaging and EKG very reassuring. Multiple diagnoses considered including cardiac ischemia but thought less likely given no exertional component, lab or EKG change, radiation symptoms, nausea or vomiting, shortness of breath or other. We did discuss other therapeutics potential diagnostics but patient felt significant improvement and would prefer to go home with his . He understands return precautions and is thankful for his care Orders Ordered: ED Orders 10/01/20 17:10 Complete Blood Count AUTO DIFF Stat Comprehensive Metabolic Panel Stat Lipase Stat Partial Thromboplastin Time Stat Prothrombin Time INR Stat Troponin & CK Cardiac Panel Stat 10/01/20 17:16 XR chest 1V Stat EKG-12 Lead Stat Vital Signs Vital signs: Vital Signs - 8 hr 10/01/20 20:36 Respiratory Rate 82 H Blood Pressure 127/62 Pulse Oximetry 100 MDM - Chest Pain Lab Data Result diagrams: 10/01/20 17:10 10/01/20 17:10 Labs: Lab Results 10/01/20 10/01/20 10/01/20 Range/Units 17:10 17:10 17:10 WBC 3.1 L (4.5-11.0) X10^3/uL RBC 3.93 L (4.5-5.9) X10^6/uL Hgb 12.9 L (13.5-17.5) g/dL Hct 37.7 L (41-53) % MCV 95.8 (80-100) fL MCH 32.8 (26-34) PG MCHC 34.2 (30-36) % RDW 14.1 (11.6-14.8) % Plt Count 176 (150-400) X10^3/uL Neut % (Auto) 65.0 (50-75) % Lymph % (Auto) 23.0 L (25-40) % [place] % (Auto) 8.1 (3-14) % Eos % (Auto) 3.0 (2-4) % Baso % (Auto) 0.9 (0-2) % Neut # (Auto) 2000 (3153-0519) /uL Lymph # (Auto) 700 L (9167-8996) /uL [place] # (Auto) 300 (0-900) /uL Eos # (Auto) 100 (0-450) /uL Baso # (Auto) 0 (0-100) /uL PT 11.4 (10.1-12.7) SECONDS INR 1.0 (0.9-1.3) APTT 33 (26.4-36.2) SECONDS Sodium 136 L (137-145) mmol/L Potassium 3.9 (3.4-5.1) mmol/L Chloride 98 (98-107) mmol/L Carbon Dioxide 31 (22-32) mmol/L BUN 17 (9-20) mg/dL Creatinine 0.75 (0.66-1.25) mg/dL Estimated GFR > 60.0 (>60) mL/min BUN/Creatinine Ratio 22.7 H (6-22) Glucose 89 (80-110) mg/dL Calcium 9.4 (8.4-10.2) mg/dL Total Bilirubin 0.4 (0.2-1.3) mg/dL AST 23 (17-59) IU/L ALT 20 (<50) IU/L Alkaline Phosphatase 49 (38-126) U/L Total Creatine Kinase 28 L (55-170) U/L CK-MB (CK-2) TNP CK-MB (CK-2) Rel Index TNP Troponin I < 0.012 (0.01-0.034) ng/mL Total Protein 6.5 (6.3-8.2) g/dL Albumin 4.3 (3.5-5.0) g/dL Globulin 2.2 (1.7-4.1) g/dL Albumin/Globulin Ratio 2.0 (1.0-2.8) Lipase 36 (23-300) U/L Discharge Plan Departure Patient Disposition: Home Clinical Impression: Abdominal pain, epigastric Instructions: DI for Epigastric Pain Activity Restrictions/Additional Instructions: *You have been diagnosed with [ acute on chronic epigastric pain, your history, physical exam, labs, EKG are very reassuring they.] *What to do: *Please continue to take your regular medications as directed. [ ] New medication prescriptions sent to your pharmacy: [ ] [ ] New medication written as a paper prescription [x ] No new medications given *Please follow up with your primary care provider in 2-3 days, call for an appointment. Let them know you were seen in the Emergency Department and that we ask that you be seen in follow up. We will electronically transmit a record of today's note if your PCP is in our system *If you do not have a primary care provider please contact the [facility] Resource line at [phone]. They will ask some questions about your medical history and help get you set up with a doctor in the community. *Return to Emergency Department if you should have any new, worsening or concerning symptoms, such as [fever greater than 101 F, shaking chills, worsening pain, persistent vomiting or other bothersome symptoms] Prescriptions: No Action famotidine 40 mg tablet 40 mg PO BEDTIME RF: 0 tamsulosin 0.4 mg capsule 0.4 mg PO BEDTIME RF: 0 pantoprazole 40 mg tablet,delayed release (DR/EC) 40 mg PO QAM RF: 0 lorazepam 1 mg tablet 0.5 - 1 mg PO BID PRN (Reason: agitation or anxiety) RF: 0 buprenorphine-naloxone 8-2 mg film 1 film sublingual Q12H RF: 0 Narcan 4 mg/actuation spray,non-aerosol 4 mg INTRANASAL DIRECTED RF: 0 simethicone [Gas Relief Ultra Strength] 180 mg Capsule 180 mg PO DAILY PRN (Reason: gas) RF: 0 sertraline 100 mg tablet 100 mg PO BEDTIME RF: 0 Domperidone 10 mg tablet 5 mg PO TID RF: 0 diltiazem HCl 60 mg capsule,extended release 12 hr 60 mg PO QAM RF: 0 diltiazem HCl 60 mg capsule,extended release 12 hr 120 mg PO QPM RF: 0 nitroglycerin [Nitrostat] 0.4 mg tablet, sublingual 0.4 mg sublingual PRN PRN (Reason: Chest Pain) RF: 0 naproxen [Naprosyn] 500 mg tablet 500 mg PO BID PRN (Reason: pain) Qty: 20 RF: 0 prednisone 20 mg tablet 40 mg PO DAILY Qty: 10 RF: 0 Referrals: Marcell Mackenzie MD [Primary Care Provider] -
[2020-10-01 18:13] LABS: Add Manual Diff / Slide Review NO; Basophils Absolute Auto 0 /uL (0-100); Basophils Percent Auto 0.9 % (0-2); Eosinophils Absolute Auto 100 /uL (0-450); Hematocrit 37.7 % (41-53); Hemoglobin 12.9 g/dL (13.5-17.5); Lymphocytes Absolute Auto 700 /uL (1100-4500); Mean Corpuscular HGB Conc 34.2 % (30-36); Mean Corpuscular Hemoglobin 32.8 PG (26-34); Mean Corpuscular Volume 95.8 fL (80-100); Monocytes Absolute Auto 300 /uL (0-900); Monocytes Percent Auto 8.1 % (3-14); Neutrophils Absolute Auto 2000 /uL (1500-7000); Platelet Count 176 X10^3/uL (150-400); Red Blood Cell Count 3.93 X10^6/uL (4.5-5.9); Red Cell Distribution Width 14.1 % (11.6-14.8); White Blood Cell Count 3.1 X10^3/uL (4.5-11.0)
[2020-10-01 18:35] LABS: Alanine Aminotransferase 20 IU/L (<50); Albumin 4.3 g/dL (3.5-5.0); Alkaline Phosphatase 49 U/L (38-126); Aspartate Aminotransferase 23 IU/L (17-59); BUN Creatinine Ratio 22.7 (6-22); Bilirubin Total 0.4 mg/dL (0.2-1.3); Blood Urea Nitrogen 17 mg/dL (9-20); Calcium 9.4 mg/dL (8.4-10.2); Carbon Dioxide 31 mmol/L (22-32); Chloride 98 mmol/L (98-107); Creatine Kinase 28 U/L (55-170); Estimated Glomerular Filt Rate > 60.0 mL/min (>60); Globulin 2.2 g/dL (1.7-4.1); Glucose 89 mg/dL (80-110); HEMOLYSIS < 15 (0-50); Lipase 36 U/L (23-300); Potassium 3.9 mmol/L (3.4-5.1); Sodium 136 mmol/L (137-145); Total Protein 6.5 g/dL (6.3-8.2)
[2020-10-01 18:40] LABS: Prothrombin Time 11.4 SECONDS (10.1-12.7)
[2020-10-01 18:42] LABS: PTT Partial Thromboplastin Tim 33 SECONDS (26.4-36.2)
[2020-10-01 18:47] LABS: Troponin I < 0.012 ng/mL (0.01-0.034)
[2020-10-01 20:36] VITALS: BP 127/62; RESP 82; O2SAT 100
== END 2020-10-01 20:37 | disposition home or self-care (01) ==
PROVIDERS: Emergency Medicine; Emergency Provider Emergency Medicine; PCP Family Medicine; Referring Provider Physical Medicine & Rehabilitation Pain Medicine
DX: R10.13 Epigastric pain (principal); R07.9 Chest pain, unspecified
CPT/HCPCS: 36415; 71045; 80053; 82550; 83690; 84484; 85025; 85610; 85730; 93005; 99283; 99284

== ENCOUNTER 2020-10-11 08:05 | Emergency (ER) | payer MEDICARE, OTHER, SELFPAY ==
[2019-05-06 13:51] VITALS: BMI 23.3
[2020-10-11 08:28] VITALS: BP 100/57; PULSE 95; RESP 18; TEMP 36.5; O2SAT 94; BMI 20.8
--- NOTE | 2020-10-11 08:47 | ED_ITS ---
HPI - Recheck/Abnormal Lab/Rx General Chief Complaint: Recheck/Abnormal Lab/Rx Stated Complaint: OPIOD MED SENSITIVITY, PAIN Time Seen by Provider: 10/11/20 08:34 Source: patient Mode of arrival: Family Vehicle Limitations: no limitations History of Present Illness HPI narrative: Male who has history of chronic pain, central sleep apnea, anxiety acid reflux and insomnia presenting with anxiety and insomnia. He has been to the emergency department numerous times over the last 1 month for the similar problems. He is being tapered off Suboxone he saw his chronic pain management doctor at [facility] 3 days ago and decreased to Suboxone from 60 mg to 12 mg. He is trying to get off of it because for the last 6 months he has had increased pain thought to be sensitivity to Suboxone. He is on able to wear his BiPAP which he was switched to AVAPS a few months ago and his deputy of counter intelligence adjusted the settings in order to help accommodate this is irritation in his throat. The irritation is so bad that he is unable to wear it. He is only able to sleep an hour and half to 3 hours a night. He is overall exhausted. He is quite afraid that he might from stroke if he does not wear it. He takes Ativan 3 times a day to help with his anxiety he would like to be switched to Klonopin. He takes Tylenol to help with his pain but he says it no longer is helping. He previously has been in the emergency department and placed on high-flow nasal cannula and allowed to sleep which has been of great help for him. He said however last time the high-flow nasal cannula did not help and in fact it aggravates it. He does not want at this time. He would like to be placed in a facility where his the can be tapered off Suboxone. I have explained to him that this is and unrealistic goal for this emergency department visit. He already takes viscous lidocaine which she says only helps for about 30 minutes and is currently on propranolol and Pepcid for acid reflux. He denies any fever or chills. He has no chest pain, or shortness of breath he has a little lightheaded. He denies any syncope Related Data Home Medications Medication Instructions Recorded Confirmed Domperidone 5 mg PO TID 05/06/19 06/06/19 Narcan 4 mg INTRANASAL DIRECTED 05/06/19 06/06/19 buprenorphine-naloxone 1 film SUBLINGUAL Q12H 05/06/19 06/06/19 famotidine 40 mg PO BEDTIME 05/06/19 06/06/19 lorazepam 0.5 - 1 mg PO BID PRN 05/06/19 06/06/19 pantoprazole 40 mg PO QAM 05/06/19 06/06/19 sertraline 100 mg PO BEDTIME 05/06/19 06/06/19 simethicone [Gas Relief Ultra 180 mg PO DAILY PRN 05/06/19 06/06/19 Strength] tamsulosin 0.4 mg PO BEDTIME 05/06/19 06/06/19 diltiazem HCl 60 mg PO QAM 06/06/19 06/06/19 diltiazem HCl 120 mg PO QPM 06/06/19 06/06/19 nitroglycerin [Nitrostat] 0.4 mg SUBLINGUAL PRN PRN 06/06/19 06/06/19 Previous Rx's Medication Instructions Recorded naproxen [Naprosyn] 500 mg PO BID PRN #20 tab 06/06/19 prednisone 40 mg PO DAILY #10 tab 06/06/19 clonazepam [Klonopin] 0.5 mg PO BID #10 tab 10/11/20 Allergies Allergy/AdvReac Type Severity Reaction Status Date / Time Penicillins Allergy Intermediate Rash Verified 10/11/20 08:34 Review of Systems Review of Systems ROS Unobtainable: All systems reviewed & are unremarkable except as noted in HPI and below Constitutional Constitutional: Reports as per HPI, Reports fatigue, Denies frequent falls, Reports poor appetite, Reports snoring and Reports weight loss (20 lb over the last 6 months) ENT Ears, Nose, Mouth, and Throat: Reports as per HPI and Denies dizziness Comments: Throat burning and pain Cardiovascular Cardiovascular: Denies chest pain, Denies irregular heart rhythm, Reports lightheadedness, Denies palpitations and Denies orthopnea Respiratory Respiratory: Reports snoring Gastrointestinal Gastrointestinal: Denies abdominal pain, Reports nausea and Denies vomiting Musculoskeletal Musculoskeletal: Denies back pain, Denies myalgias and Denies numbness Integumentary/Breasts Skin/Breast: Denies pruritus, Denies erythema, Denies rash and Denies wounds Neurologic Neurologic: Denies behavioral changes, Denies confusion, Denies dizziness, Denies frequent falls and Denies numbness Psychiatric Psychiatric: Denies behavioral changes and Denies confusion Endocrine Endocrine: Reports fatigue and Denies palpitations Patient History Medical History (Updated 10/11/20 @ 11:08 by Katherine Horton DO) Anxiety Central sleep apnea Chronic low back pain Chronic pain Depression Gastritis Gastroparesis GERD (gastroesophageal reflux disease) History of left heart catheterization Idiopathic peripheral neuropathy Sleep apnea Surgical History History of laminectomy Family History Mother Healthy adult Father No problems noted. Brother Healthy adult Sister Healthy adult Social History household members: spouse Smoking Status: Never smoker alcohol intake: never Smoking Status: Never smoker alcohol intake frequency: 0-2 drinks per day Substance Use Type: does not use Exam Initial Vital Signs Initial Vital Signs: Vital Signs Temperature 97.7 F 10/11/20 08:28 Pulse Rate 95 H 10/11/20 08:28 Respiratory Rate 18 10/11/20 08:28 Blood Pressure 100/57 L 10/11/20 08:28 Pulse Oximetry 94 10/11/20 08:28 GENERAL: Thin chronically ill-appearing 75-year-old male and in no acute distress. HEENT: Head atraumatic,EOMI, pupils reactive, face symmetric, moist mucous membranes CARDIOVASCULAR: Regular rate and rhythm without murmurs, rubs or gallops. RESPIRATORY: Breath sounds equal bilaterally, no wheezes rales or rhonchi. ABDOMEN: Soft, nontender. Normoactive bowel sounds all 4 quadrants. No gua rding or rebound. EXTREMITIES: Normal range of motion, no clubbing or edema. Neurovascularly intact NEUROLOGICAL: Alert and oriented x4.Normal gait and speech. Technical Agronomist strength equal bilat SKIN: Warm, dry, no laceration, no petechiae, no rashes or lesions. Course Orders Ordered: ED Orders 10/11/20 09:50 Basic Metabolic Panel Stat Complete Blood Count AUTO DIFF Stat Discontinued Medications Clonazepam (Clonazepam 0.5 Mg Tablet) 1 mg PO NOW ONE Stop: 10/11/20 09:26 Last Admin: 10/11/20 09:37 Dose: 1 mg Documented by: ERNIE Al Hydrox/Mg Hydrox/Simethicone 20 ml/ Lidocaine HCl 15 ml 0 ml PO NOW ONE Stop: 10/11/20 09:22 Last Admin: 10/11/20 09:38 Dose: 35 ml Documented by: ERNIE Ketorolac Tromethamine (Ketorolac 30 Mg/Ml Vial) 30 mg IV NOW ONE Stop: 10/11/20 09:22 Last Admin: 10/11/20 09:49 Dose: 30 mg Documented by: ERNIE Pantoprazole Sodium (Pantoprazole 40 Mg Vial) 40 mg IV NOW ONE Stop: 10/11/20 09:22 Last Admin: 10/11/20 09:51 Dose: 40 mg Documented by: ERNIE Vital Signs Vital signs: Vital Signs - 8 hr 10/11/20 08:28 Temperature 97.7 F Pulse Rate 95 H Respiratory Rate 18 Blood Pressure 100/57 L Pulse Oximetry 94 MDM - Recheck/Abnormal Lab/Rx Lab Data Attestation: I reviewed the patient's lab results. Result diagrams: 10/11/20 09:50 10/11/20 09:50 Labs: Lab Results 10/11/20 10/11/20 Range/Units 09:50 09:50 WBC 2.8 L (4.5-11.0) X10^3/uL RBC 3.72 L (4.5-5.9) X10^6/uL Hgb 12.1 L (13.5-17.5) g/dL Hct 35.6 L (41-53) % MCV 95.6 (80-100) fL MCH 32.5 (26-34) PG MCHC 34.0 (30-36) % RDW 13.8 (11.6-14.8) % Plt Count 168 (150-400) X10^3/uL Neut % (Auto) 71.7 (50-75) % Lymph % (Auto) 18.2 L (25-40) % [place] % (Auto) 7.7 (3-14) % Eos % (Auto) 2.0 (2-4) % Baso % (Auto) 0.4 (0-2) % Neut # (Auto) 2000 (6668-8746) /uL Lymph # (Auto) 500 L (0264-3233) /uL [place] # (Auto) 200 (0-900) /uL Eos # (Auto) 100 (0-450) /uL Baso # (Auto) 0 (0-100) /uL Sodium 131 L (137-145) mmol/L Potassium 3.8 (3.4-5.1) mmol/L Chloride 96 L (98-107) mmol/L Carbon Dioxide 30 (22-32) mmol/L BUN 12 (9-20) mg/dL Creatinine 0.68 (0.66-1.25) mg/dL Estimated GFR > 60.0 (>60) mL/min BUN/Creatinine Ratio 17.6 (6-22) Glucose 96 (80-110) mg/dL Calcium 9.2 (8.4-10.2) mg/dL MDM Narrative Medical decision making narrative: Patient is much calmer and feeling significantly better. Blood work is overall stable and at his baseline. Klonopin seems to be a better medication for him. I have instructed him to stop his Ativan and he will need to ask for his physician for on going Klonopin. But I will give him a few. Discharge Plan Departure Patient Disposition: Home Clinical Impression: Anxiety Instructions: DI for Anxiety -- Adult Activity Restrictions/Additional Instructions: *You have been diagnosed with anxiety *What to do: Please continue to follow-up with your chronic pain management doctor and her deputy of counter intelligence and her primary care provider. I am only able to give you a few tablets of Klonopin *Continue to take medications as directed Klonopin 0.5 mg twice a day STOP TAKING ATIVAN/LORAZEPAM *Follow up with your primary care provider in 2-3 days *Return to ER if you should have increasing anxiety, increasing pain, fever more than 100.4 or any new, worsening or concerning symptoms Prescriptions: New clonazepam [Klonopin] 0.5 mg tablet 0.5 mg PO BID Qty: 10 RF: 0 No Action famotidine 40 mg tablet 40 mg PO BEDTIME RF: 0 tamsulosin 0.4 mg capsule 0.4 mg PO BEDTIME RF: 0 pantoprazole 40 mg tablet,delayed release (DR/EC) 40 mg PO QAM RF: 0 lorazepam 1 mg tablet 0.5 - 1 mg PO BID PRN (Reason: agitation or anxiety) RF: 0 buprenorphine-naloxone 8-2 mg film 1 film sublingual Q12H RF: 0 Narcan 4 mg/actuation spray,non-aerosol 4 mg INTRANASAL DIRECTED RF: 0 simethicone [Gas Relief Ultra Strength] 180 mg Capsule 180 mg PO DAILY PRN (Reason: gas) RF: 0 sertraline 100 mg tablet 100 mg PO BEDTIME RF: 0 Domperidone 10 mg tablet 5 mg PO TID RF: 0 diltiazem HCl 60 mg capsule,extended release 12 hr 60 mg PO QAM RF: 0 diltiazem HCl 60 mg capsule,extended release 12 hr 120 mg PO QPM RF: 0 nitroglycerin [Nitrostat] 0.4 mg tablet, sublingual 0.4 mg sublingual PRN PRN (Reason: Chest Pain) RF: 0 naproxen [Naprosyn] 500 mg tablet 500 mg PO BID PRN (Reason: pain) Qty: 20 RF: 0 prednisone 20 mg tablet 40 mg PO DAILY Qty: 10 RF: 0 Referrals: Marcell Mackenzie MD [Primary Care Provider] -
[2020-10-11] MEDS: clonazePAM 0.5 MG TABLET 1 MG PO (09:37)
[2020-10-11] MEDS: MAG HYDROX/ALUMINUM/SIMETH SUS 20 ML, LIDOCAINE VISCOUS 2% 15 ML PO (09:38)
[2020-10-11] MEDS: KETOROLAC 30 MG/ML VIAL IV (09:49)
[2020-10-11] MEDS: PANTOPRAZOLE 40 MG VIAL IV (09:51)
[2020-10-11 09:58] LABS: Add Manual Diff / Slide Review NO; Basophils Absolute Auto 0 /uL (0-100); Basophils Percent Auto 0.4 % (0-2); Eosinophils Absolute Auto 100 /uL (0-450); Hematocrit 35.6 % (41-53); Hemoglobin 12.1 g/dL (13.5-17.5); Lymphocytes Absolute Auto 500 /uL (1100-4500); Lymphocytes Percent Auto 18.2 % (25-40); Mean Corpuscular Hemoglobin 32.5 PG (26-34); Mean Corpuscular Volume 95.6 fL (80-100); Monocytes Absolute Auto 200 /uL (0-900); Monocytes Percent Auto 7.7 % (3-14); Neutrophils Absolute Auto 2000 /uL (1500-7000); Neutrophils Percent Auto 71.7 % (50-75); Platelet Count 168 X10^3/uL (150-400); Red Blood Cell Count 3.72 X10^6/uL (4.5-5.9); Red Cell Distribution Width 13.8 % (11.6-14.8); White Blood Cell Count 2.8 X10^3/uL (4.5-11.0)
[2020-10-11 10:08] LABS: BUN Creatinine Ratio 17.6 (6-22); Blood Urea Nitrogen 12 mg/dL (9-20); Calcium 9.2 mg/dL (8.4-10.2); Carbon Dioxide 30 mmol/L (22-32); Chloride 96 mmol/L (98-107); Estimated Glomerular Filt Rate > 60.0 mL/min (>60); Glucose 96 mg/dL (80-110); HEMOLYSIS < 15 (0-50); Potassium 3.8 mmol/L (3.4-5.1); Sodium 131 mmol/L (137-145)
== END 2020-10-11 11:40 | disposition home or self-care (01) ==
PROVIDERS: Emergency Provider Emergency Medicine; PCP Family Medicine
DX: F41.9 Anxiety disorder, unspecified (principal); G47.00 Insomnia, unspecified
CPT/HCPCS: 36415; 80048; 85025; 96374; 96375; 99284; C9113; J1885

== ENCOUNTER 2021-10-01 14:15 | Emergency (ER) | payer MEDICARE, OTHER, SELFPAY ==
[2019-05-06 13:51] VITALS: BMI 23.3
[2021-10-01] VITALS (121 sets, daily range): BP systolic 59–155; BP diastolic 30–86; PULSE 37–92; RESP 6–25; TEMP 23.5–37.3; O2SAT 90–100
--- NOTE | 2021-10-01 14:22 | DI.CT.S_ITS ---
PROCEDURE: CT CHEST ABD PEL W CON INDICATIONS: Trauma TECHNIQUE: After the administration of intravenous contrast, 5 mm thick sections acquired from the lung apices to the symphysis. 2.5 mm thick coronal and sagittal reformats were acquired. Additional 7 mm thick coronal maximum intensity projection (MIP) reformats acquired through the lungs. Optional 10-minute delayed imaging may be performed from the kidneys to the bladder. For radiation dose reduction, the following was used: automated exposure control, adjustment of mA and/or kV according to patient size. COMPARISON: [facility], CR, XR CHEST 1V, 10/01/2021, 15:05. [facility], CT, CT HEAD/BRAIN WO CON, 10/01/2021, 14:35. [facility], CT, CT CERVICAL SPINE WO CON, 10/01/2021, 14:35. FINDINGS: Image quality: Excellent. CHEST: Lungs: An endotracheal tube is seen, with the tip 5 cm above the level of the juan luis. No acute airspace opacities. No suspicious pulmonary lesions. No pleural effusion or pneumothorax. No lacerations or contusions. Mediastinum: No mediastinal hematomas. Heart size is normal. No pericardial effusion. Thoracic aorta and pulmonary arteries demonstrate normal size and enhancement. Scattered atheromatous calcifications are present within the aortic arch. No mediastinal or hilar adenopathy. Esophagus is normal in caliber. No hiatal hernia. Chest wall: No rib fractures. No subcutaneous emphysema. No axillary or supraclavicular adenopathy. Thyroid gland the patient is intubated. The central airways are patent. There is a right-sided central line seen, with a small amount of soft tissue gas seen within the right lower neck. The tip of the line is seen within the inferior aspect of the superior vena cava. ABDOMEN: Solid organs: Liver is normal in size and enhancement, without lacerations. Gallbladder is unremarkable. Biliary system is non-dilated. Pancreas enhances normally, without transection. Spleen is normal in size and enhancement, without lacerations. No adrenal hematomas. Both kidneys enhance normally, without hydronephrosis or lacerations. Peritoneum and bowel: No free fluid or air. Unenhanced bowel loops demonstrate normal wall thickness and caliber. There is a [id number] amount of stool seen within the distal colon. Nodes and vessels: No retroperitoneal or mesenteric adenopathy. Aorta and inferior vena cava are normal in size and enhancement. Miscellaneous: No ventral hernias. PELVIS: Genitourinary: Bladder wall thickness is normal. A Agosto catheter is seen, which partially decompresses the urinary bladder. Miscellaneous: No inguinal hernias or adenopathy. Bones: Pelvic ring and hip joints appear intact. No vertebral compression fractures. Focal L5-S1 degenerative change is seen. Milder degenerative changes are seen elsewhere. IMPRESSION: No significant acute posttraumatic abnormality is seen. There is a [id number] amount of stool seen within the colon. Please correlate with an underlying history of constipation. The endotracheal tube tip tube is seen 5 cm above the juan luis. The tip of the right-sided central line is seen within the inferior aspect of the superior vena cava. Incidental note is made of: Focal L4-L5 degenerative change Agosto catheter Dictated by: Kasandra Ocasio M.D. on 10/01/2021 at 16:15 Approved by: Pratik Xiong M.D. on 10/01/2021 at 15:33
--- NOTE | 2021-10-01 14:22 | DI.RAD.S_ITS ---
PROCEDURE: XR PELVIS 1-2V INDICATIONS: OD, unresponsive TECHNIQUE: Single view(s) of the pelvis acquired. COMPARISON: None. FINDINGS: Bones: No fractures or dislocations. No suspicious bony lesions. Soft tissues: Visualized bowel gas pattern is normal. No suspicious soft tissue calcifications. IMPRESSION: No acute radiographic findings. Dictated by: Kasandra Ocasio M.D. on 10/01/2021 at 14:46 Approved by: Kasandra Ocasio M.D. on 10/01/2021 at 14:46
--- NOTE | 2021-10-01 14:22 | DI.CT.S_ITS ---
PROCEDURE: CT CERVICAL SPINE WO CON INDICATIONS: Trauma TECHNIQUE: Noncontrast 3 mm thick sections acquired from the skull base to the T4 level. Sagittal and coronal reformats were then constructed. For radiation dose reduction, the following was used: automated exposure control, adjustment of mA and/or kV according to patient size. COMPARISON: None. FINDINGS: Image quality: Excellent. Bones: No fractures or dislocations. Visualized superior ribs are intact. Spine degenerative disc disease and facet arthropathy. Soft tissues: Prevertebral soft tissues are normal in thickness. No paravertebral hematomas. No apical pneumothoraces. Right IJ central venous catheter. Endotracheal tube. IMPRESSION: No fracture. No acute osseous lesion. If symptoms and/or clinical suspicion for pathology persists, evaluation with MRI should be considered for further assessment. Dictated by: Sharri Delacruz MD, PhD on 10/01/2021 at 15:50 Approved by: Sharri Delacruz MD, PhD on 10/01/2021 at 15:55
--- NOTE | 2021-10-01 14:22 | DI.RAD.S_ITS ---
PROCEDURE: XR CHEST 1V INDICATIONS: OD, unresponsive TECHNIQUE: One view of the chest was acquired. COMPARISON: [facility], CR, XR CHEST 1V, 10/01/2020, 17:25. FINDINGS: Surgical changes and devices: The patient has been intubated and the endotracheal tube is 7.7 cm above the juan luis. Lungs and pleura: Lungs are clear. No pleural effusions or pneumothorax. Mediastinum: Mediastinal contours appear normal. Heart size is normal. A large amount of gas is present in the stomach. Bones and chest wall: No suspicious bony lesions. Overlying soft tissues appear unremarkable. IMPRESSION: No acute cardiopulmonary findings. Dictated by: Kasandra Ocasio M.D. on 10/01/2021 at 14:45 Approved by: Kasandra Ocasio M.D. on 10/01/2021 at 14:46
--- NOTE | 2021-10-01 14:22 | DI.CT.S_ITS ---
PROCEDURE: CT HEAD/BRAIN WO CON INDICATIONS: Trauma TECHNIQUE: Noncontrast 4.5 mm thick angled axial sections acquired from the foramen magnum to the vertex, with coronal and sagittal reformats. For radiation dose reduction, the following was used: automated exposure control, adjustment of mA and/or kV according to patient size. COMPARISON: None. FINDINGS: Image quality: Degraded by patient motion artifact and beam hardening artifact. CSF spaces: Basal cisterns are patent. No extra-axial fluid collections. The ventricles are symmetric in size and shape. Brain: No intracranial bleeds or masses. There is cerebral volume loss for age, with resultant ventricular and sulcal prominence. There are periventricular and deep white matter chronic small vessel ischemic changes. There is intracranial internal carotid artery atherosclerosis. Skull and face: Calvarium and visualized facial bones appear intact, without suspicious lesions. Sinuses: Visualized sinuses and mastoids are clear. IMPRESSION: No acute intracranial disease process within limitations related to artifacts. Dictated by: Sharri Delacruz MD, PhD on 10/01/2021 at 15:47 Approved by: Sharri Delacruz MD, PhD on 10/01/2021 at 15:49
[2021-10-01] MEDS: SODIUM CHLORIDE 0.9% 1,000 ML 1000 ML IV (14:30)
--- NOTE | 2021-10-01 14:30 | PC.NURSE ---
during logroll assessment red bottom/scrotal area, left buttock red ni, abrasions scattered back, left elbow red/abrasion. wet underwear removed, active warming continued.
--- NOTE | 2021-10-01 14:33 | ED_ITS ---
HPI - Overdose <Johanne Velazco, DO - Last Filed: 10/02/21 10:39> General Chief Complaint: Unresponsive Stated Complaint: Unresponive Time Seen by Provider: 10/01/21 14:21 Source: patient and EMS Mode of arrival: EMS Limitations: altered mental status History of Present Illness HPI Narrative: This is a 76-year-old male who has been missing for the past 2 days. Patient was found with hydromorphone, new sent and tramadol bottles which are all empty. Patient had made statements to family about ending his life. He was found by surgeon rescue, he is cold in the field, unresponsive he did receive Narcan as well as epi 40 mcg total in aliquots and ketamine and succinylcholine for intubation. Patient is unresponsive. Patient has a history of chronic pain, there is reported ketamine prescriptions but none found with patient. Patient has history EMR of chronic pain, central sink apnea, anxiety, acid reflux and insomnia. He has been on Suboxone in the past. Related Data Home Medications Medication Instructions Recorded Confirmed Domperidone 5 mg PO TID 05/06/19 04/23/21 buprenorphine 8 mg-naloxone 2 mg 1 film SUBLINGUAL Q12H 05/06/19 04/23/21 sublingual film famotidine 40 mg tablet 40 mg PO BEDTIME 05/06/19 04/23/21 lorazepam 1 mg tablet 0.5 - 1 mg PO BID PRN 05/06/19 04/23/21 naloxone 4 mg/actuation nasal 4 mg INTRANASAL DIRECTED 05/06/19 04/23/21 spray (Narcan) pantoprazole 40 mg tablet,delayed 40 mg PO QAM 05/06/19 04/23/21 release sertraline 100 mg tablet 100 mg PO BEDTIME 05/06/19 04/23/21 simethicone 180 mg capsule (Gas 180 mg PO DAILY PRN 05/06/19 04/23/21 Relief Ultra Strength) tamsulosin 0.4 mg capsule 0.4 mg PO BEDTIME 05/06/19 04/23/21 diltiazem HCl 60 mg 60 mg PO QAM 06/06/19 04/23/21 capsule,extended release 12 hr diltiazem HCl 60 mg 120 mg PO QPM 06/06/19 04/23/21 capsule,extended release 12 hr nitroglycerin 0.4 mg sublingual 0.4 mg SUBLINGUAL PRN PRN 06/06/19 04/23/21 tablet (Nitrostat) Previous Rx's Medication Instructions Recorded naproxen 500 mg tablet (Naprosyn) 500 mg PO BID PRN #20 tab 06/06/19 prednisone 20 mg tablet 40 mg PO DAILY #10 tab 06/06/19 clonazepam 0.5 mg tablet (Klonopin) 0.5 mg PO BID #10 tab 10/11/20 Allergies Allergy/AdvReac Type Severity Reaction Status Date / Time Penicillins Allergy Intermediate Rash Verified 04/23/21 15:18 <Petros Chiang DO - Last Filed: 10/02/21 00:09> History of Present Illness HPI Narrative: This is a 76-year-old male who has been missing for the past 2 days. Patient was found with hydromorphone, new sent and tramadol bottles which are all empty. Patient had made statements to family about ending his life. He was found by search and rescue, he is cold in the field, unresponsive he did receive Narcan as well as epi 40 mcg total in aliquots and ketamine and succinylcholine for intubation. Patient is unresponsive. Patient has a history of chronic pain, there is reported ketamine prescriptions but none found with patient. Patient has history EMR of chronic pain, central sink apnea, anxiety, acid reflux and insomnia. He has been on Suboxone in the past. Review of Systems <Johanne Velazco DO - Last Filed: 10/02/21 10:39> Review of Systems ROS Unobtainable: Unobtainable due to medical condition and Unobtainable due to mental status/LOC Patient History <Johanne Velazco DO - Last Filed: 10/02/21 10:39> Medical History (Updated 10/01/21 @ 19:55 by Johanne Velazco DO) Anxiety Central sleep apnea Chronic low back pain Chronic pain Depression Gastritis Gastroparesis GERD (gastroesophageal reflux disease) History of left heart catheterization Idiopathic peripheral neuropathy Sleep apnea Surgical History History of laminectomy Family History Mother Healthy adult Father No problems noted. Brother Healthy adult Sister Healthy adult Social History household members: spouse Smoking Status: Never smoker alcohol intake: never Smoking Status: Never smoker alcohol intake frequency: 0-2 drinks per day Substance Use Type: does not use Exam <Johanne Velazco DO - Last Filed: 10/02/21 10:39> Narrative Exam Narrative: GEN: Thin elderly appearing male unresponsive, cold to touch. HEENT: Atraumatic, pupils are dilated and equal and unresponsive to light, no corneal reflex. Patient is intubated. HEART: Regular rate and rhythm without murmur, clicks, rubs. LUNGS:Lungs clear to auscultation, no wheezes, rales, crackles, chest moves symmetrically, with bagging and vent. ABD:bowel sounds normal, soft, non-tender, no guarding, rebound, rigidity, no masses noted, no hepatosplenomegaly :No CVA tenderness BACK: No cervical, thoracic or lumbar vertebral point tenderness. Patient has tone on rectal exam, he has erythema on the buttocks, as well as erythema and breakdown on the right SI hip region, patient has some abrasions on his upper back, MSCL: Nontender to touch areflexic, NEURO:GCS 3 SKIN: Patient has multiple small abrasions on his lower extremities. No signs of erythema. Initial Vital Signs Initial Vital Signs: Vital Signs Temperature 74.3 F L 10/01/21 14:30 Pulse Rate 66 10/01/21 14:30 Respiratory Rate 20 10/01/21 14:30 Pulse Oximetry 100 10/01/21 14:30 <Petros Chiang DO - Last Filed: 10/02/21 00:09> Initial Vital Signs Initial Vital Signs: Vital Signs Temperature 74.3 F L 10/01/21 14:30 Pulse Rate 66 10/01/21 14:30 Respiratory Rate 20 10/01/21 14:30 Pulse Oximetry 100 10/01/21 14:30 Procedures <Johanne Velazco DO - Last Filed: 10/02/21 10:39> Central Line Placement Right IJ: Time of procedure: 15:00 Time Out Performed: Yes Patient Placed on Monitor/Pulse Ox: Yes MD Prep: mask, gown and gloves Central Line Prep: Povidone-Iodine 1%, Chlorhexidine scrub and sterile drapes applied Ultrasound Used for Placement: Yes Central Line Lumen Inserted: triple Post Procedure: sutured in place, good blood return, all ports aspirated, flushed, capped and sterile dressing applied Post Procedure X-Ray: tip of catheter in good position and no pneumothorax seen Patient Tolerated Procedure: Well Complications: none Scores <Johanne Velazco, DO - Last Filed: 10/02/21 10:39> GCS Teresa coma scale eye opening: None [place] coma scale verbal response: None Teresa coma scale motor response: None [place] coma scale total score: 3 <Petros Chiang, DO - Last Filed: 10/02/21 00:09> GCS Teresa coma scale total score: 3 Course <Johanne Velazco, DO - Last Filed: 10/02/21 10:39> Orders Ordered: Discontinued Medications Atropine Sulfate (Atropine 1 Mg/10 Ml Syringe) 1 mg IV NOW ONE Stop: 10/01/21 15:55 Last Admin: 10/01/21 14:51 Dose: 0.5 mg Documented by: CHAPARRITA Sodium Chloride (Normal Saline 0.9%) 1,000 mls @ 1,000 mls/hr IV BOLUS ONE Stop: 10/01/21 15:22 Last Infusion: 10/01/21 15:30 Dose: 0 mls/hr Documented by: Admin: 10/01/21 14:30 Dose: 1,000 mls/hr Documented by: CHAPARRITA NOREPINEPHRINE BITARTRATE/D5W (Levophed) 4 mg in 250 mls @ 30 mls/hr IV TITRATE MARCELINA; Protocol Stop: 12/30/21 23:19 Last Admin: 10/02/21 00:56 Dose: 6 mcg/min, 22.5 mls/hr Documented by: Titration: 10/02/21 00:56 Dose: 6 mcg/min, 22.5 mls/hr Documented by: Titration: 10/01/21 20:03 Dose: 6 mcg/min, 22.5 mls/hr Documented by: Titration: 10/01/21 17:16 Dose: 4 mcg/min, 15 mls/hr Documented by: Titration: 10/01/21 16:56 Dose: 0 mcg/min, 0 mls/hr Documented by: Titration: 10/01/21 16:12 Dose: 2 mcg/min, 7.5 mls/hr Documented by: Titration: 10/01/21 15:55 Dose: 3 mcg/min, 11.25 mls/hr Documented by: Titration: 10/01/21 15:23 Dose: 4 mcg/min, 15 mls/hr Documented by: Admin: 10/01/21 15:05 Dose: 8 mcg/min, 30 mls/hr Documented by: CHAPARRITA Sodium Chloride (Normal Saline 0.9%) 1,000 mls @ 200 mls/hr IV CONT MARCELINA Last Admin: 10/01/21 23:09 Dose: 200 mls/hr Documented by: Infusion: 10/01/21 21:12 Dose: 200 mls/hr Documented by: Admin: 10/01/21 16:12 Dose: 200 mls/hr Documented by: CHAPARRITA Midazolam HCl 50 mg/ Dextrose 250 mls @ 7.938 mls/hr IV TITRATE MARCELINA Last Admin: 10/02/21 00:21 Dose: 0.06 mg/kg/hr, 25 mls/hr Documented by: Infusion: 10/02/21 00:21 Dose: 0.06 mg/kg/hr, 25 mls/hr Documented by: Infusion: 10/01/21 17:47 Dose: 0.06 mg/kg/hr, 25 mls/hr Documented by: Admin: 10/01/21 16:45 Dose: 0.04 mg/kg/hr, 15 mls/hr Documented by: CHAPARRITA POTASSIUM CHLORIDE IN WATER (Potassium Cl 10 Meq/100 Ml Shauna) 10 meq in 100 mls @ 100 mls/hr IV Q1H MARCELINA Stop: 10/01/21 21:44 Last Infusion: 10/01/21 22:14 Dose: 0 mls/hr Documented by: Admin: 10/01/21 21:09 Dose: 100 mls/hr Documented by: Infusion: 10/01/21 21:08 Dose: 100 mls/hr Documented by: Admin: 10/01/21 20:08 Dose: 100 mls/hr Documented by: Infusion: 10/01/21 20:07 Dose: 100 mls/hr Documented by: Admin: 10/01/21 19:07 Dose: 100 mls/hr Documented by: Infusion: 10/01/21 19:04 Dose: 0 mls/hr Documented by: Admin: 10/01/21 18:01 Dose: 100 mls/hr Documented by: ELI Midazolam HCl (Midazolam 2 Mg/2 Ml Vial) 2 mg IV Q1HR PRN PRN Reason: sedation Last Admin: 10/01/21 16:17 Dose: 2 mg Documented by: Admin: 10/01/21 15:53 Dose: 2 mg Documented by: Admin: 10/01/21 15:42 Dose: 2 mg Documented by: JET Home Medication (Storage) 0 each PO PRN PRN PRN Reason: HOME MEDICATION STORAGE Consultations Consultation #1: Dr. Arias, hospitalist. Feels quite uncomfortable managing the patient here for rewarming. Time: 16:40 Vital Signs Vital signs: Vital Signs - 8 hr 10/01/21 16:10 10/01/21 16:15 10/01/21 16:20 Temperature 79.3 F L 79.5 F L 79.9 F L Pulse Rate 51 L 52 L 52 L Respiratory Rate 17 18 20 Blood Pressure 152/79 H 138/76 145/75 H Pulse Oximetry 100 100 100 10/01/21 16:25 10/01/21 16:30 10/01/21 16:35 Temperature 80.2 F L 80.4 F L 80.6 F L Pulse Rate 51 L 51 L 51 L Respiratory Rate 17 19 18 Blood Pressure 145/74 H 132/73 135/71 Pulse Oximetry 99 100 100 10/01/21 16:40 10/01/21 16:45 10/01/21 16:50 Temperature 80.8 F L 81.1 F L 81.3 F L Pulse Rate 53 L 53 L 54 L Respiratory Rate 19 18 17 Blood Pressure 131/70 125/69 125/73 Pulse Oximetry 100 100 100 10/01/21 16:55 10/01/21 17:00 10/01/21 17:05 Temperature 81.5 F L 81.9 F L 82.0 F L Pulse Rate 54 L 55 L 52 L Respiratory Rate 15 16 16 Blood Pressure 126/69 110/64 Pulse Oximetry 99 100 100 10/01/21 17:10 10/01/21 17:15 10/01/21 17:20 Temperature 82.2 F L 82.4 F L 82.8 F L Pulse Rate 51 L 50 L 51 L Respiratory Rate 16 16 19 Blood Pressure 82/53 L 78/51 L 112/63 Pulse Oximetry 99 99 99 10/01/21 17:25 10/01/21 17:30 10/01/21 17:35 Temperature 83.7 F L 84.4 F L 84.9 F L Pulse Rate 59 L 62 64 Respiratory Rate 16 15 15 Blood Pressure 147/81 H 150/82 H 147/77 H Pulse Oximetry 100 100 100 10/01/21 17:40 10/01/21 17:45 10/01/21 17:50 Temperature 85.3 F L 85.6 F L 86.2 F L Pulse Rate 65 66 67 Respiratory Rate 15 15 15 Blood Pressure 144/75 H 141/76 H 141/76 H Pulse Oximetry 99 99 100 10/01/21 17:55 10/01/21 18:00 10/01/21 18:05 Temperature 86.5 F L 86.9 F L 87.3 F L Pulse Rate 68 68 69 Respiratory Rate 15 15 15 Blood Pressure 134/72 134/70 132/72 Pulse Oximetry 99 99 99 10/01/21 18:10 10/01/21 18:15 10/01/21 18:20 Temperature 87.6 F L 88.0 F L 88.2 F L Pulse Rate 70 71 72 Respiratory Rate 15 15 15 Blood Pressure 125/69 129/67 123/66 Pulse Oximetry 99 100 99 10/01/21 18:25 10/01/21 18:30 10/01/21 18:35 Temperature 88.5 F L 88.9 F L 89.1 F L Pulse Rate 73 73 74 Respiratory Rate 15 15 15 Blood Pressure 121/67 119/67 124/66 Pulse Oximetry 99 99 99 10/01/21 18:40 10/01/21 18:45 10/01/21 18:50 Temperature 89.4 F L 89.8 F L 90.0 F L Pulse Rate 74 75 75 Respiratory Rate 15 15 15 Blood Pressure 121/65 115/65 119/64 Pulse Oximetry 99 99 99 10/01/21 18:55 10/01/21 19:00 10/01/21 19:05 Temperature 90.3 F L 90.7 F L 90.9 F L Pulse Rate 76 77 77 Respiratory Rate 15 15 15 Blood Pressure 112/62 116/61 110/60 Pulse Oximetry 99 99 99 10/01/21 19:10 10/01/21 19:15 10/01/21 19:20 Temperature 91.2 F L 91.6 F L 91.8 F L Pulse Rate 77 78 78 Respiratory Rate 15 15 16 Blood Pressure 111/59 L 110/58 L 109/59 L Pulse Oximetry 99 100 99 10/01/21 19:25 10/01/21 19:30 10/01/21 19:35 Temperature 92.1 F L 92.5 F L 92.7 F L Pulse Rate 79 79 79 Respiratory Rate 15 15 15 Blood Pressure 112/59 L 103/55 L 98/53 L Pulse Oximetry 100 99 100 10/01/21 19:40 10/01/21 19:45 10/01/21 19:50 Temperature 92.8 F L 93.2 F L 93.4 F L Pulse Rate 79 79 79 Respiratory Rate 15 15 15 Blood Pressure 93/50 L 93/50 L 93/55 L Pulse Oximetry 100 100 100 10/01/21 19:54 10/01/21 19:55 10/01/21 20:00 Temperature 93.7 F L 93.7 F L 93.9 F L Pulse Rate 80 80 80 Respiratory Rate 15 15 15 Blood Pressure 91/52 L 89/50 L Pulse Oximetry 100 100 100 10/01/21 20:05 10/01/21 20:10 10/01/21 20:15 Temperature 94.3 F L 94.5 F L 94.8 F L Pulse Rate 82 85 86 Respiratory Rate 15 15 15 Blood Pressure 105/54 L 109/55 L 105/57 L Pulse Oximetry 100 100 100 10/01/21 20:20 10/01/21 20:25 10/01/21 20:30 Temperature 95.2 F L 95.4 F L 95.9 F L Pulse Rate 86 87 87 Respiratory Rate 15 15 15 Blood Pressure 103/58 L 103/59 L Pulse Oximetry 100 100 100 10/01/21 20:35 10/01/21 20:40 10/01/21 20:45 Temperature 96.1 F L 96.3 F L 96.4 F L Pulse Rate 87 87 89 Respiratory Rate 15 15 16 Blood Pressure 100/59 L 103/58 L 99/58 L Pulse Oximetry 100 100 99 10/01/21 20:50 10/01/21 20:55 10/01/21 21:00 Temperature 96.6 F L 96.8 F L 97.0 F L Pulse Rate 89 89 89 Respiratory Rate 15 16 16 Blood Pressure 98/53 L 95/51 L 102/56 L Pulse Oximetry 100 100 100 10/01/21 21:05 10/01/21 21:10 10/01/21 21:15 Temperature 97.2 F L 97.3 F L 97.5 F L Pulse Rate 89 90 90 Respiratory Rate 15 15 16 Blood Pressure 99/57 L 98/54 L 98/55 L Pulse Oximetry 100 100 100 10/01/21 21:20 10/01/21 21:25 10/01/21 21:30 Temperature 97.5 F L 97.7 F 97.9 F Pulse Rate 90 90 91 H Respiratory Rate 14 13 13 Blood Pressure 98/57 L 98/57 L 98/53 L Pulse Oximetry 100 99 99 10/01/21 21:35 10/01/21 21:40 10/01/21 21:45 Temperature 97.9 F 97.9 F 98.1 F Pulse Rate 91 H 91 H 91 H Respiratory Rate 15 14 13 Blood Pressure 103/57 L 102/58 L 99/54 L Pulse Oximetry 99 99 99 10/01/21 21:50 10/01/21 21:55 10/01/21 22:00 Temperature 98.1 F 98.2 F 98.2 F Pulse Rate 91 H 92 H 92 H Respiratory Rate 13 14 13 Blood Pressure 98/55 L 98/57 L 100/57 L Pulse Oximetry 99 99 99 10/01/21 22:05 10/01/21 22:10 10/01/21 22:15 Temperature 98.2 F 98.4 F 98.4 F Pulse Rate 92 H 92 H 92 H Respiratory Rate 15 13 15 Blood Pressure 99/58 L 98/53 L 97/56 L Pulse Oximetry 99 99 99 10/01/21 22:20 10/01/21 22:25 10/01/21 22:30 Temperature 98.4 F 98.4 F 98.6 F Pulse Rate 92 H 92 H 92 H Respiratory Rate 14 14 13 Blood Pressure 99/57 L 99/57 L 98/53 L Pulse Oximetry 99 99 99 10/01/21 22:35 10/01/21 22:40 10/01/21 22:45 Temperature 98.6 F 98.6 F 98.6 F Pulse Rate 92 H 92 H 92 H Respiratory Rate 14 14 15 Blood Pressure 102/56 L 100/58 L 97/54 L Pulse Oximetry 99 99 99 10/01/21 22:50 10/01/21 22:55 10/01/21 23:00 Temperature 98.8 F 98.8 F 98.8 F Pulse Rate 92 H 92 H 92 H Respiratory Rate 15 15 15 Blood Pressure 98/57 L 97/53 L 95/52 L Pulse Oximetry 99 99 98 10/01/21 23:05 10/01/21 23:10 10/01/21 23:15 Temperature 98.8 F 98.8 F 99.0 F Pulse Rate 92 H 92 H 92 H Respiratory Rate 14 15 15 Blood Pressure 97/56 L 98/55 L 100/57 L Pulse Oximetry 99 99 99 10/01/21 23:20 Temperature 99.0 F Pulse Rate 92 H Respiratory Rate 14 Blood Pressure 99/57 L Pulse Oximetry 99 <Petros Chiang DO - Last Filed: 10/02/21 00:09> Orders Ordered: Discontinued Medications Atropine Sulfate (Atropine 1 Mg/10 Ml Syringe) 1 mg IV NOW ONE Stop: 10/01/21 15:55 Last Admin: 10/01/21 14:51 Dose: 0.5 mg Documented by: CHAPARRITA Sodium Chloride (Normal Saline 0.9%) 1,000 mls @ 1,000 mls/hr IV BOLUS ONE Stop: 10/01/21 15:22 Last Infusion: 10/01/21 15:30 Dose: 0 mls/hr Documented by: Admin: 10/01/21 14:30 Dose: 1,000 mls/hr Documented by: CHAPARRITA NOREPINEPHRINE BITARTRATE/D5W (Levophed) 4 mg in 250 mls @ 30 mls/hr IV TITRATE MARCELINA; Protocol Stop: 12/30/21 23:19 Last Admin: 10/02/21 00:56 Dose: 6 mcg/min, 22.5 mls/hr Documented by: Titration: 10/02/21 00:56 Dose: 6 mcg/min, 22.5 mls/hr Documented by: Titration: 10/01/21 20:03 Dose: 6 mcg/min, 22.5 mls/hr Documented by: Titration: 10/01/21 17:16 Dose: 4 mcg/min, 15 mls/hr Documented by: Titration: 10/01/21 16:56 Dose: 0 mcg/min, 0 mls/hr Documented by: Titration: 10/01/21 16:12 Dose: 2 mcg/min, 7.5 mls/hr Documented by: Titration: 10/01/21 15:55 Dose: 3 mcg/min, 11.25 mls/hr Documented by: Titration: 10/01/21 15:23 Dose: 4 mcg/min, 15 mls/hr Documented by: Admin: 10/01/21 15:05 Dose: 8 mcg/min, 30 mls/hr Documented by: CHAPARRITA Sodium Chloride (Normal Saline 0.9%) 1,000 mls @ 200 mls/hr IV CONT [facility] Last Admin: 10/01/21 23:09 Dose: 200 mls/hr Documented by: Infusion: 10/01/21 21:12 Dose: 200 mls/hr Documented by: Admin: 10/01/21 16:12 Dose: 200 mls/hr Documented by: CHAPARRITA Midazolam HCl 50 mg/ Dextrose 250 mls @ 7.938 mls/hr IV TITRATE [facility] Last Admin: 10/02/21 00:21 Dose: 0.06 mg/kg/hr, 25 mls/hr Documented by: Infusion: 10/02/21 00:21 Dose: 0.06 mg/kg/hr, 25 mls/hr Documented by: Infusion: 10/01/21 17:47 Dose: 0.06 mg/kg/hr, 25 mls/hr Documented by: Admin: 10/01/21 16:45 Dose: 0.04 mg/kg/hr, 15 mls/hr Documented by: CHAPARRITA POTASSIUM CHLORIDE IN WATER (Potassium Cl 10 Meq/100 Ml Shauna) 10 meq in 100 mls @ 100 mls/hr IV Q1H MARCELINA Stop: 10/01/21 21:44 Last Infusion: 10/01/21 22:14 Dose: 0 mls/hr Documented by: Admin: 10/01/21 21:09 Dose: 100 mls/hr Documented by: Infusion: 10/01/21 21:08 Dose: 100 mls/hr Documented by: Admin: 10/01/21 20:08 Dose: 100 mls/hr Documented by: Infusion: 10/01/21 20:07 Dose: 100 mls/hr Documented by: Admin: 10/01/21 19:07 Dose: 100 mls/hr Documented by: Infusion: 10/01/21 19:04 Dose: 0 mls/hr Documented by: Admin: 10/01/21 18:01 Dose: 100 mls/hr Documented by: ELI Midazolam HCl (Midazolam 2 Mg/2 Ml Vial) 2 mg IV Q1HR PRN PRN Reason: sedation Last Admin: 10/01/21 16:17 Dose: 2 mg Documented by: Admin: 10/01/21 15:53 Dose: 2 mg Documented by: Admin: 10/01/21 15:42 Dose: 2 mg Documented by: JET Home Medication (Storage) 0 each PO PRN PRN PRN Reason: HOME MEDICATION STORAGE Vital Signs Vital signs: Vital Signs - 8 hr 10/01/21 16:10 10/01/21 16:15 10/01/21 16:20 Temperature 79.3 F L 79.5 F L 79.9 F L Pulse Rate 51 L 52 L 52 L Respiratory Rate 17 18 20 Blood Pressure 152/79 H 138/76 145/75 H Pulse Oximetry 100 100 100 10/01/21 16:25 10/01/21 16:30 10/01/21 16:35 Temperature 80.2 F L 80.4 F L 80.6 F L Pulse Rate 51 L 51 L 51 L Respiratory Rate 17 19 18 Blood Pressure 145/74 H 132/73 135/71 Pulse Oximetry 99 100 100 10/01/21 16:40 10/01/21 16:45 10/01/21 16:50 Temperature 80.8 F L 81.1 F L 81.3 F L Pulse Rate 53 L 53 L 54 L Respiratory Rate 19 18 17 Blood Pressure 131/70 125/69 125/73 Pulse Oximetry 100 100 100 10/01/21 16:55 10/01/21 17:00 10/01/21 17:05 Temperature 81.5 F L 81.9 F L 82.0 F L Pulse Rate 54 L 55 L 52 L Respiratory Rate 15 16 16 Blood Pressure 126/69 110/64 Pulse Oximetry 99 100 100 10/01/21 17:10 10/01/21 17:15 10/01/21 17:20 Temperature 82.2 F L 82.4 F L 82.8 F L Pulse Rate 51 L 50 L 51 L Respiratory Rate 16 16 19 Blood Pressure 82/53 L 78/51 L 112/63 Pulse Oximetry 99 99 99 10/01/21 17:25 10/01/21 17:30 10/01/21 17:35 Temperature 83.7 F L 84.4 F L 84.9 F L Pulse Rate 59 L 62 64 Respiratory Rate 16 15 15 Blood Pressure 147/81 H 150/82 H 147/77 H Pulse Oximetry 100 100 100 10/01/21 17:40 10/01/21 17:45 10/01/21 17:50 Temperature 85.3 F L 85.6 F L 86.2 F L Pulse Rate 65 66 67 Respiratory Rate 15 15 15 Blood Pressure 144/75 H 141/76 H 141/76 H Pulse Oximetry 99 99 100 10/01/21 17:55 10/01/21 18:00 10/01/21 18:05 Temperature 86.5 F L 86.9 F L 87.3 F L Pulse Rate 68 68 69 Respiratory Rate 15 15 15 Blood Pressure 134/72 134/70 132/72 Pulse Oximetry 99 99 99 10/01/21 18:10 10/01/21 18:15 10/01/21 18:20 Temperature 87.6 F L 88.0 F L 88.2 F L Pulse Rate 70 71 72 Respiratory Rate 15 15 15 Blood Pressure 125/69 129/67 123/66 Pulse Oximetry 99 100 99 10/01/21 18:25 10/01/21 18:30 10/01/21 18:35 Temperature 88.5 F L 88.9 F L 89.1 F L Pulse Rate 73 73 74 Respiratory Rate 15 15 15 Blood Pressure 121/67 119/67 124/66 Pulse Oximetry 99 99 99 10/01/21 18:40 10/01/21 18:45 10/01/21 18:50 Temperature 89.4 F L 89.8 F L 90.0 F L Pulse Rate 74 75 75 Respiratory Rate 15 15 15 Blood Pressure 121/65 115/65 119/64 Pulse Oximetry 99 99 99 10/01/21 18:55 10/01/21 19:00 10/01/21 19:05 Temperature 90.3 F L 90.7 F L 90.9 F L Pulse Rate 76 77 77 Respiratory Rate 15 15 15 Blood Pressure 112/62 116/61 110/60 Pulse Oximetry 99 99 99 10/01/21 19:10 10/01/21 19:15 10/01/21 19:20 Temperature 91.2 F L 91.6 F L 91.8 F L Pulse Rate 77 78 78 Respiratory Rate 15 15 16 Blood Pressure 111/59 L 110/58 L 109/59 L Pulse Oximetry 99 100 99 10/01/21 19:25 10/01/21 19:30 10/01/21 19:35 Temperature 92.1 F L 92.5 F L 92.7 F L Pulse Rate 79 79 79 Respiratory Rate 15 15 15 Blood Pressure 112/59 L 103/55 L 98/53 L Pulse Oximetry 100 99 100 10/01/21 19:40 10/01/21 19:45 10/01/21 19:50 Temperature 92.8 F L 93.2 F L 93.4 F L Pulse Rate 79 79 79 Respiratory Rate 15 15 15 Blood Pressure 93/50 L 93/50 L 93/55 L Pulse Oximetry 100 100 100 10/01/21 19:54 10/01/21 19:55 10/01/21 20:00 Temperature 93.7 F L 93.7 F L 93.9 F L Pulse Rate 80 80 80 Respiratory Rate 15 15 15 Blood Pressure 91/52 L 89/50 L Pulse Oximetry 100 100 100 10/01/21 20:05 10/01/21 20:10 10/01/21 20:15 Temperature 94.3 F L 94.5 F L 94.8 F L Pulse Rate 82 85 86 Respiratory Rate 15 15 15 Blood Pressure 105/54 L 109/55 L 105/57 L Pulse Oximetry 100 100 100 10/01/21 20:20 10/01/21 20:25 10/01/21 20:30 Temperature 95.2 F L 95.4 F L 95.9 F L Pulse Rate 86 87 87 Respiratory Rate 15 15 15 Blood Pressure 103/58 L 103/59 L Pulse Oximetry 100 100 100 10/01/21 20:35 10/01/21 20:40 10/01/21 20:45 Temperature 96.1 F L 96.3 F L 96.4 F L Pulse Rate 87 87 89 Respiratory Rate 15 15 16 Blood Pressure 100/59 L 103/58 L 99/58 L Pulse Oximetry 100 100 99 10/01/21 20:50 10/01/21 20:55 10/01/21 21:00 Temperature 96.6 F L 96.8 F L 97.0 F L Pulse Rate 89 89 89 Respiratory Rate 15 16 16 Blood Pressure 98/53 L 95/51 L 102/56 L Pulse Oximetry 100 100 100 10/01/21 21:05 10/01/21 21:10 10/01/21 21:15 Temperature 97.2 F L 97.3 F L 97.5 F L Pulse Rate 89 90 90 Respiratory Rate 15 15 16 Blood Pressure 99/57 L 98/54 L 98/55 L Pulse Oximetry 100 100 100 10/01/21 21:20 10/01/21 21:25 10/01/21 21:30 Temperature 97.5 F L 97.7 F 97.9 F Pulse Rate 90 90 91 H Respiratory Rate 14 13 13 Blood Pressure 98/57 L 98/57 L 98/53 L Pulse Oximetry 100 99 99 10/01/21 21:35 10/01/21 21:40 10/01/21 21:45 Temperature 97.9 F 97.9 F 98.1 F Pulse Rate 91 H 91 H 91 H Respiratory Rate 15 14 13 Blood Pressure 103/57 L 102/58 L 99/54 L Pulse Oximetry 99 99 99 10/01/21 21:50 10/01/21 21:55 10/01/21 22:00 Temperature 98.1 F 98.2 F 98.2 F Pulse Rate 91 H 92 H 92 H Respiratory Rate 13 14 13 Blood Pressure 98/55 L 98/57 L 100/57 L Pulse Oximetry 99 99 99 10/01/21 22:05 10/01/21 22:10 10/01/21 22:15 Temperature 98.2 F 98.4 F 98.4 F Pulse Rate 92 H 92 H 92 H Respiratory Rate 15 13 15 Blood Pressure 99/58 L 98/53 L 97/56 L Pulse Oximetry 99 99 99 10/01/21 22:20 10/01/21 22:25 10/01/21 22:30 Temperature 98.4 F 98.4 F 98.6 F Pulse Rate 92 H 92 H 92 H Respiratory Rate 14 14 13 Blood Pressure 99/57 L 99/57 L 98/53 L Pulse Oximetry 99 99 99 10/01/21 22:35 10/01/21 22:40 10/01/21 22:45 Temperature 98.6 F 98.6 F 98.6 F Pulse Rate 92 H 92 H 92 H Respiratory Rate 14 14 15 Blood Pressure 102/56 L 100/58 L 97/54 L Pulse Oximetry 99 99 99 10/01/21 22:50 10/01/21 22:55 10/01/21 23:00 Temperature 98.8 F 98.8 F 98.8 F Pulse Rate 92 H 92 H 92 H Respiratory Rate 15 15 15 Blood Pressure 98/57 L 97/53 L 95/52 L Pulse Oximetry 99 99 98 10/01/21 23:05 10/01/21 23:10 10/01/21 23:15 Temperature 98.8 F 98.8 F 99.0 F Pulse Rate 92 H 92 H 92 H Respiratory Rate 14 15 15 Blood Pressure 97/56 L 98/55 L 100/57 L Pulse Oximetry 99 99 99 10/01/21 23:20 Temperature 99.0 F Pulse Rate 92 H Respiratory Rate 14 Blood Pressure 99/57 L Pulse Oximetry 99 MDM - Overdose <Johanne Velazco, DO - Last Filed: 10/02/21 10:39> Lab Data Result diagrams: 10/01/21 14:35 10/01/21 20:05 Labs: Lab Results 10/01/21 10/01/21 10/01/21 Range/Units 14:35 14:35 14:35 WBC 2.6 L (4.5-11.0) X10^3/uL RBC 4.63 (4.5-5.9) X10^6/uL Hgb 15.1 (13.5-17.5) g/dL Hct 43.0 (41-53) % MCV 92.7 (80-100) fL MCH 32.6 (26-34) PG MCHC 35.1 (30-36) % RDW 13.4 (11.6-14.8) % Plt Count 92 L (150-400) X10^3/uL Neut % (Auto) 84.7 H (50-75) % Lymph % (Auto) 11.8 L (25-40) % [place] % (Auto) 3.2 (3-14) % Eos % (Auto) 0.1 L (2-4) % Baso % (Auto) 0.2 (0-2) % Neut # (Auto) 2200 (5661-3184) /uL Lymph # (Auto) 300 L (8223-3969) /uL Johnston # (Auto) 100 (0-900) /uL Eos # (Auto) 0 (0-450) /uL Baso # (Auto) 0 (0-100) /uL PT 16.7 H (10.1-12.7) SECONDS INR 1.5 H (0.9-1.3) APTT 34 (26.4-36.2) SECONDS ABG pH (7.35-7.45) ABG pCO2 (35-45) mmHg ABG pO2 (80-100) mmHg ABG HCO3 (22-26) mmol/L ABG Total CO2 (21-31) mmol/L ABG O2 Saturation (95-100) % ABG Base Excess (-2-2) mmol/L FiO2 Sodium 134 L (137-145) mmol/L Potassium 3.2 L (3.4-5.1) mmol/L Chloride 98 (98-107) mmol/L Carbon Dioxide 20 L (22-32) mmol/L BUN 27 H (9-20) mg/dL Creatinine 0.62 L (0.66-1.25) mg/dL Estimated GFR > 60 (>60) mL/min BUN/Creatinine Ratio 43.5 H (6-22) Glucose 163 H (80-110) mg/dL Lactate (0.7-2.1) mmol/L Calcium 8.3 L (8.4-10.2) mg/dL Total Bilirubin 0.8 (0.2-1.3) mg/dL AST 117 H (17-59) IU/L ALT 54 H (<50) IU/L Alkaline Phosphatase 61 (38-126) U/L Total Creatine Kinase 4981 H (55-170) U/L CK-MB (CK-2) 83.00 H (<2.37) ng/mL CK-MB (CK-2) Rel Index 1.7 (1.5-5.0) % Troponin I < 0.012 (0.01-0.034) ng/mL Total Protein 5.6 L (6.3-8.2) g/dL Albumin 3.8 (3.5-5.0) g/dL Globulin 1.8 (1.7-4.1) g/dL Albumin/Globulin Ratio 2.1 (1.0-2.8) Lipase 35 (23-300) U/L Urine Color Urine Appearance Urine pH (4.5-8.0) Ur Specific [place] (1.000-1.035) Urine Protein (Negative) Urine Glucose (UA) (Negative) g/dL Urine Ketones (NEGATIVE) Urine Occult Blood (Negative) Urine Nitrate (Negative) Urine Bilirubin (NEGATIVE) Urine Urobilinogen (0.2) E.U./dL Ur Leukocyte Esterase (NEGATIVE) Urine RBC (0-5/HPF) Urine WBC (0-5/HPF) Ur Squamous Epith Cells (0-5/HPF) Urine Bacteria (None) Ur Culture Indicated? Salicylates (<20) mg/dL U Opiates 300ng/mL cut (Negative) Ur Oxycodone Screen (Negative) Urine Methadone Screen (Negative) Acetaminophen (10-30) ug/mL Ur Barbiturates Screen (Negative) U Tricyclic Antidepress (Negative) Ur Phencyclidine Scrn (Negative) Ur Amphetamines Screen (Negative) U Methamphetamines Scrn (Negative) Ur MDMA Scrn (Ecstasy) (Negative) U Benzodiazepines Scrn (Negative) Urine Cocaine Screen (Negative) U Marijuana (THC) Screen (Negative) Ethyl Alcohol < 10 ( - 10) mg/dL SARS-CoV-2 (PCR) (Negative) Blood Type Antibody Screen 10/01/21 10/01/21 10/01/21 Range/Units 14:35 14:35 14:35 WBC (4.5-11.0) X10^3/uL RBC (4.5-5.9) X10^6/uL Hgb (13.5-17.5) g/dL Hct (41-53) % MCV (80-100) fL MCH (26-34) PG MCHC (30-36) % RDW (11.6-14.8) % Plt Count (150-400) X10^3/uL Neut % (Auto) (50-75) % Lymph % (Auto) (25-40) % Johnston % (Auto) (3-14) % Eos % (Auto) (2-4) % Baso % (Auto) (0-2) % Neut # (Auto) (5109-1486) /uL Lymph # (Auto) (4914-0905) /uL Johnston # (Auto) (0-900) /uL Eos # (Auto) (0-450) /uL Baso # (Auto) (0-100) /uL PT (10.1-12.7) SECONDS INR (0.9-1.3) APTT (26.4-36.2) SECONDS ABG pH (7.35-7.45) ABG pCO2 (35-45) mmHg ABG pO2 (80-100) mmHg ABG HCO3 (22-26) mmol/L ABG Total CO2 (21-31) mmol/L ABG O2 Saturation (95-100) % ABG Base Excess (-2-2) mmol/L FiO2 Sodium (137-145) mmol/L Potassium (3.4-5.1) mmol/L Chloride (98-107) mmol/L Carbon Dioxide (22-32) mmol/L BUN (9-20) mg/dL Creatinine (0.66-1.25) mg/dL Estimated GFR (>60) mL/min BUN/Creatinine Ratio (6-22) Glucose (80-110) mg/dL Lactate 3.3 H (0.7-2.1) mmol/L Calcium (8.4-10.2) mg/dL Total Bilirubin (0.2-1.3) mg/dL AST (17-59) IU/L ALT (<50) IU/L Alkaline Phosphatase (38-126) U/L Total Creatine Kinase (55-170) U/L CK-MB (CK-2) (<2.37) ng/mL CK-MB (CK-2) Rel Index (1.5-5.0) % Troponin I (0.01-0.034) ng/mL Total Protein (6.3-8.2) g/dL Albumin (3.5-5.0) g/dL Globulin (1.7-4.1) g/dL Albumin/Globulin Ratio (1.0-2.8) Lipase (23-300) U/L Urine Color Urine Appearance Urine pH (4.5-8.0) Ur Specific [place] (1.000-1.035) Urine Protein (Negative) Urine Glucose (UA) (Negative) g/dL Urine Ketones (NEGATIVE) Urine Occult Blood (Negative) Urine Nitrate (Negative) Urine Bilirubin (NEGATIVE) Urine Urobilinogen (0.2) E.U./dL Ur Leukocyte Esterase (NEGATIVE) Urine RBC (0-5/HPF) Urine WBC (0-5/HPF) Ur Squamous Epith Cells (0-5/HPF) Urine Bacteria (None) Ur Culture Indicated? Salicylates < 1.0 (<20) mg/dL U Opiates 300ng/mL cut (Negative) Ur Oxycodone Screen (Negative) Urine Methadone Screen (Negative) Acetaminophen < 10 (10-30) ug/mL Ur Barbiturates Screen (Negative) U Tricyclic Antidepress (Negative) Ur Phencyclidine Scrn (Negative) Ur Amphetamines Screen (Negative) U Methamphetamines Scrn (Negative) Ur MDMA Scrn (Ecstasy) (Negative) U Benzodiazepines Scrn (Negative) Urine Cocaine Screen (Negative) U Marijuana (THC) Screen (Negative) Ethyl Alcohol ( - 10) mg/dL SARS-CoV-2 (PCR) (Negative) Blood Type O Positive Antibody Screen Negative 10/01/21 10/01/21 10/01/21 Range/Units 14:36 14:36 14:54 WBC (4.5-11.0) X10^3/uL RBC (4.5-5.9) X10^6/uL Hgb (13.5-17.5) g/dL Hct (41-53) % MCV (80-100) fL MCH (26-34) PG MCHC (30-36) % RDW (11.6-14.8) % Plt Count (150-400) X10^3/uL Neut % (Auto) (50-75) % Lymph % (Auto) (25-40) % Johnston % (Auto) (3-14) % Eos % (Auto) (2-4) % Baso % (Auto) (0-2) % Neut # (Auto) (6312-0103) /uL Lymph # (Auto) (3486-2040) /uL Johnston # (Auto) (0-900) /uL Eos # (Auto) (0-450) /uL Baso # (Auto) (0-100) /uL PT (10.1-12.7) SECONDS INR (0.9-1.3) APTT (26.4-36.2) SECONDS ABG pH (7.35-7.45) ABG pCO2 (35-45) mmHg ABG pO2 (80-100) mmHg ABG HCO3 (22-26) mmol/L ABG Total CO2 (21-31) mmol/L ABG O2 Saturation (95-100) % ABG Base Excess (-2-2) mmol/L FiO2 Sodium (137-145) mmol/L Potassium (3.4-5.1) mmol/L Chloride (98-107) mmol/L Carbon Dioxide (22-32) mmol/L BUN (9-20) mg/dL Creatinine (0.66-1.25) mg/dL Estimated GFR (>60) mL/min BUN/Creatinine Ratio (6-22) Glucose (80-110) mg/dL Lactate (0.7-2.1) mmol/L Calcium (8.4-10.2) mg/dL Total Bilirubin (0.2-1.3) mg/dL AST (17-59) IU/L ALT (<50) IU/L Alkaline Phosphatase (38-126) U/L Total Creatine Kinase (55-170) U/L CK-MB (CK-2) (<2.37) ng/mL CK-MB (CK-2) Rel Index (1.5-5.0) % Troponin I (0.01-0.034) ng/mL Total Protein (6.3-8.2) g/dL Albumin (3.5-5.0) g/dL Globulin (1.7-4.1) g/dL Albumin/Globulin Ratio (1.0-2.8) Lipase (23-300) U/L Urine Color Yellow Urine Appearance Clear Urine pH 6.5 (4.5-8.0) Ur Specific [place] >=1.030 H (1.000-1.035) Urine Protein Trace H (Negative) Urine Glucose (UA) Negative (Negative) g/dL Urine Ketones 1+ H (NEGATIVE) Urine Occult Blood 3+ H (Negative) Urine Nitrate Negative (Negative) Urine Bilirubin Negative (NEGATIVE) Urine Urobilinogen 0.2 (0.2) E.U./dL Ur Leukocyte Esterase Negative (NEGATIVE) Urine RBC 5-10/hpf H (0-5/HPF) Urine WBC 0-1/hpf (0-5/HPF) Ur Squamous Epith Cells 0-1 /hpf (0-5/HPF) Urine Bacteria None seen (None) Ur Culture Indicated? Cult not indicated Salicylates (<20) mg/dL U Opiates 300ng/mL cut Positive H (Negative) Ur Oxycodone Screen Negative (Negative) Urine Methadone Screen Negative (Negative) Acetaminophen (10-30) ug/mL Ur Barbiturates Screen Negative (Negative) U Tricyclic Antidepress Negative (Negative) Ur Phencyclidine Scrn Negative (Negative) Ur Amphetamines Screen Negative (Negative) U Methamphetamines Scrn Negative (Negative) Ur MDMA Scrn (Ecstasy) Negative (Negative) U Benzodiazepines Scrn Positive H (Negative) Urine Cocaine Screen Negative (Negative) U Marijuana (THC) Screen Negative (Negative) Ethyl Alcohol ( - 10) mg/dL SARS-CoV-2 (PCR) Negative (Negative) Blood Type Antibody Screen 10/01/21 10/01/21 10/01/21 Range/Units 16:35 16:59 16:59 WBC (4.5-11.0) X10^3/uL RBC (4.5-5.9) X10^6/uL Hgb (13.5-17.5) g/dL Hct (41-53) % MCV (80-100) fL MCH (26-34) PG MCHC (30-36) % RDW (11.6-14.8) % Plt Count (150-400) X10^3/uL Neut % (Auto) (50-75) % Lymph % (Auto) (25-40) % Johnston % (Auto) (3-14) % Eos % (Auto) (2-4) % Baso % (Auto) (0-2) % Neut # (Auto) (2642-4396) /uL Lymph # (Auto) (0699-0826) /uL Johnston # (Auto) (0-900) /uL Eos # (Auto) (0-450) /uL Baso # (Auto) (0-100) /uL PT (10.1-12.7) SECONDS INR (0.9-1.3) APTT (26.4-36.2) SECONDS ABG pH 7.31 L (7.35-7.45) ABG pCO2 47.8 H (35-45) mmHg ABG pO2 608 H* (80-100) mmHg ABG HCO3 24 (22-26) mmol/L ABG Total CO2 25 (21-31) mmol/L ABG O2 Saturation 100 (95-100) % ABG Base Excess -2.0 (-2-2) mmol/L FiO2 100 Sodium (137-145) mmol/L Potassium (3.4-5.1) mmol/L Chloride (98-107) mmol/L Carbon Dioxide (22-32) mmol/L BUN (9-20) mg/dL Creatinine (0.66-1.25) mg/dL Estimated GFR (>60) mL/min BUN/Creatinine Ratio (6-22) Glucose (80-110) mg/dL Lactate 1.3 (0.7-2.1) mmol/L Calcium (8.4-10.2) mg/dL Total Bilirubin (0.2-1.3) mg/dL AST (17-59) IU/L ALT (<50) IU/L Alkaline Phosphatase (38-126) U/L Total Creatine Kinase (55-170) U/L CK-MB (CK-2) (<2.37) ng/mL CK-MB (CK-2) Rel Index (1.5-5.0) % Troponin I < 0.012 (0.01-0.034) ng/mL Total Protein (6.3-8.2) g/dL Albumin (3.5-5.0) g/dL Globulin (1.7-4.1) g/dL Albumin/Globulin Ratio (1.0-2.8) Lipase (23-300) U/L Urine Color Urine Appearance Urine pH (4.5-8.0) Ur Specific [place] (1.000-1.035) Urine Protein (Negative) Urine Glucose (UA) (Negative) g/dL Urine Ketones (NEGATIVE) Urine Occult Blood (Negative) Urine Nitrate (Negative) Urine Bilirubin (NEGATIVE) Urine Urobilinogen (0.2) E.U./dL Ur Leukocyte Esterase (NEGATIVE) Urine RBC (0-5/HPF) Urine WBC (0-5/HPF) Ur Squamous Epith Cells (0-5/HPF) Urine Bacteria (None) Ur Culture Indicated? Salicylates (<20) mg/dL U Opiates 300ng/mL cut (Negative) Ur Oxycodone Screen (Negative) Urine Methadone Screen (Negative) Acetaminophen (10-30) ug/mL Ur Barbiturates Screen (Negative) U Tricyclic Antidepress (Negative) Ur Phencyclidine Scrn (Negative) Ur Amphetamines Screen (Negative) U Methamphetamines Scrn (Negative) Ur MDMA Scrn (Ecstasy) (Negative) U Benzodiazepines Scrn (Negative) Urine Cocaine Screen (Negative) U Marijuana (THC) Screen (Negative) Ethyl Alcohol ( - 10) mg/dL SARS-CoV-2 (PCR) (Negative) Blood Type Antibody Screen 10/01/21 10/01/21 10/01/21 Range/Units 16:59 20:05 20:05 WBC (4.5-11.0) X10^3/uL RBC (4.5-5.9) X10^6/uL Hgb (13.5-17.5) g/dL Hct (41-53) % MCV (80-100) fL MCH (26-34) PG MCHC (30-36) % RDW (11.6-14.8) % Plt Count (150-400) X10^3/uL Neut % (Auto) (50-75) % Lymph % (Auto) (25-40) % Johnston % (Auto) (3-14) % Eos % (Auto) (2-4) % Baso % (Auto) (0-2) % Neut # (Auto) (0606-7368) /uL Lymph # (Auto) (5159-0284) /uL Johnston # (Auto) (0-900) /uL Eos # (Auto) (0-450) /uL Baso # (Auto) (0-100) /uL PT 15.7 H (10.1-12.7) SECONDS INR 1.4 H (0.9-1.3) APTT (26.4-36.2) SECONDS ABG pH (7.35-7.45) ABG pCO2 (35-45) mmHg ABG pO2 (80-100) mmHg ABG HCO3 (22-26) mmol/L ABG Total CO2 (21-31) mmol/L ABG O2 Saturation (95-100) % ABG Base Excess (-2-2) mmol/L FiO2 Sodium 134 L (137-145) mmol/L Potassium 2.6 L* (3.4-5.1) mmol/L Chloride 103 (98-107) mmol/L Carbon Dioxide 15 L (22-32) mmol/L BUN 25 H (9-20) mg/dL Creatinine 0.47 L (0.66-1.25) mg/dL Estimated GFR > 60 (>60) mL/min BUN/Creatinine Ratio 53.2 H (6-22) Glucose 147 H (80-110) mg/dL Lactate (0.7-2.1) mmol/L Calcium 7.9 L (8.4-10.2) mg/dL Total Bilirubin (0.2-1.3) mg/dL AST (17-59) IU/L ALT (<50) IU/L Alkaline Phosphatase (38-126) U/L Total Creatine Kinase 4893 H (55-170) U/L CK-MB (CK-2) (<2.37) ng/mL CK-MB (CK-2) Rel Index (1.5-5.0) % Troponin I (0.01-0.034) ng/mL Total Protein (6.3-8.2) g/dL Albumin (3.5-5.0) g/dL Globulin (1.7-4.1) g/dL Albumin/Globulin Ratio (1.0-2.8) Lipase (23-300) U/L Urine Color Urine Appearance Urine pH (4.5-8.0) Ur Specific [place] (1.000-1.035) Urine Protein (Negative) Urine Glucose (UA) (Negative) g/dL Urine Ketones (NEGATIVE) Urine Occult Blood (Negative) Urine Nitrate (Negative) Urine Bilirubin (NEGATIVE) Urine Urobilinogen (0.2) E.U./dL Ur Leukocyte Esterase (NEGATIVE) Urine RBC (0-5/HPF) Urine WBC (0-5/HPF) Ur Squamous Epith Cells (0-5/HPF) Urine Bacteria (None) Ur Culture Indicated? Salicylates (<20) mg/dL U Opiates 300ng/mL cut (Negative) Ur Oxycodone Screen (Negative) Urine Methadone Screen (Negative) Acetaminophen (10-30) ug/mL Ur Barbiturates Screen (Negative) U Tricyclic Antidepress (Negative) Ur Phencyclidine Scrn (Negative) Ur Amphetamines Screen (Negative) U Methamphetamines Scrn (Negative) Ur MDMA Scrn (Ecstasy) (Negative) U Benzodiazepines Scrn (Negative) Urine Cocaine Screen (Negative) U Marijuana (THC) Screen (Negative) Ethyl Alcohol ( - 10) mg/dL SARS-CoV-2 (PCR) (Negative) Blood Type Antibody Screen 10/01/21 10/01/21 10/01/21 Range/Units 20:05 20:05 21:13 WBC (4.5-11.0) X10^3/uL RBC (4.5-5.9) X10^6/uL Hgb (13.5-17.5) g/dL Hct (41-53) % MCV (80-100) fL MCH (26-34) PG MCHC (30-36) % RDW (11.6-14.8) % Plt Count (150-400) X10^3/uL Neut % (Auto) (50-75) % Lymph % (Auto) (25-40) % Johnston % (Auto) (3-14) % Eos % (Auto) (2-4) % Baso % (Auto) (0-2) % Neut # (Auto) (8025-8801) /uL Lymph # (Auto) (4190-4280) /uL Johnston # (Auto) (0-900) /uL Eos # (Auto) (0-450) /uL Baso # (Auto) (0-100) /uL PT (10.1-12.7) SECONDS INR (0.9-1.3) APTT 28 D (26.4-36.2) SECONDS ABG pH 7.25 L* (7.35-7.45) ABG pCO2 55.1 H (35-45) mmHg ABG pO2 153 H (80-100) mmHg ABG HCO3 24 (22-26) mmol/L ABG Total CO2 26 (21-31) mmol/L ABG O2 Saturation 99 (95-100) % ABG Base Excess -3.0 L (-2-2) mmol/L FiO2 40 Sodium 135 L (137-145) mmol/L Potassium 3.4 (3.4-5.1) mmol/L Chloride 103 (98-107) mmol/L Carbon Dioxide 23 (22-32) mmol/L BUN 26 H (9-20) mg/dL Creatinine 0.56 L (0.66-1.25) mg/dL Estimated GFR > 60 (>60) mL/min BUN/Creatinine Ratio 46.4 H (6-22) Glucose 113 H (80-110) mg/dL Lactate (0.7-2.1) mmol/L Calcium 7.6 L (8.4-10.2) mg/dL Total Bilirubin 0.8 (0.2-1.3) mg/dL AST 123 H (17-59) IU/L ALT 60 H (<50) IU/L Alkaline Phosphatase 43 (38-126) U/L Total Creatine Kinase (55-170) U/L CK-MB (CK-2) (<2.37) ng/mL CK-MB (CK-2) Rel Index (1.5-5.0) % Troponin I (0.01-0.034) ng/mL Total Protein 5.1 L (6.3-8.2) g/dL Albumin 3.2 L (3.5-5.0) g/dL Globulin 1.9 (1.7-4.1) g/dL Albumin/Globulin Ratio 1.7 (1.0-2.8) Lipase (23-300) U/L Urine Color Urine Appearance Urine pH (4.5-8.0) Ur Specific [place] (1.000-1.035) Urine Protein (Negative) Urine Glucose (UA) (Negative) g/dL Urine Ketones (NEGATIVE) Urine Occult Blood (Negative) Urine Nitrate (Negative) Urine Bilirubin (NEGATIVE) Urine Urobilinogen (0.2) E.U./dL Ur Leukocyte Esterase (NEGATIVE) Urine RBC (0-5/HPF) Urine WBC (0-5/HPF) Ur Squamous Epith Cells (0-5/HPF) Urine Bacteria (None) Ur Culture Indicated? Salicylates (<20) mg/dL U Opiates 300ng/mL cut (Negative) Ur Oxycodone Screen (Negative) Urine Methadone Screen (Negative) Acetaminophen (10-30) ug/mL Ur Barbiturates Screen (Negative) U Tricyclic Antidepress (Negative) Ur Phencyclidine Scrn (Negative) Ur Amphetamines Screen (Negative) U Methamphetamines Scrn (Negative) Ur MDMA Scrn (Ecstasy) (Negative) U Benzodiazepines Scrn (Negative) Urine Cocaine Screen (Negative) U Marijuana (THC) Screen (Negative) Ethyl Alcohol ( - 10) mg/dL SARS-CoV-2 (PCR) (Negative) Blood Type Antibody Screen 10/01/21 Range/Units 23:12 WBC (4.5-11.0) X10^3/uL RBC (4.5-5.9) X10^6/uL Hgb (13.5-17.5) g/dL Hct (41-53) % MCV (80-100) fL MCH (26-34) PG MCHC (30-36) % RDW (11.6-14.8) % Plt Count (150-400) X10^3/uL Neut % (Auto) (50-75) % Lymph % (Auto) (25-40) % [place] % (Auto) (3-14) % Eos % (Auto) (2-4) % Baso % (Auto) (0-2) % Neut # (Auto) (6193-3764) /uL Lymph # (Auto) (3637-3429) /uL Johnston # (Auto) (0-900) /uL Eos # (Auto) (0-450) /uL Baso # (Auto) (0-100) /uL PT (10.1-12.7) SECONDS INR (0.9-1.3) APTT (26.4-36.2) SECONDS ABG pH 7.30 L (7.35-7.45) ABG pCO2 50.0 H (35-45) mmHg ABG pO2 111 H (80-100) mmHg ABG HCO3 25 (22-26) mmol/L ABG Total CO2 26 (21-31) mmol/L ABG O2 Saturation 98 (95-100) % ABG Base Excess -2.0 (-2-2) mmol/L FiO2 30 Sodium (137-145) mmol/L Potassium (3.4-5.1) mmol/L Chloride (98-107) mmol/L Carbon Dioxide (22-32) mmol/L BUN (9-20) mg/dL Creatinine (0.66-1.25) mg/dL Estimated GFR (>60) mL/min BUN/Creatinine Ratio (6-22) Glucose (80-110) mg/dL Lactate (0.7-2.1) mmol/L Calcium (8.4-10.2) mg/dL Total Bilirubin (0.2-1.3) mg/dL AST (17-59) IU/L ALT (<50) IU/L Alkaline Phosphatase (38-126) U/L Total Creatine Kinase (55-170) U/L CK-MB (CK-2) (<2.37) ng/mL CK-MB (CK-2) Rel Index (1.5-5.0) % Troponin I (0.01-0.034) ng/mL Total Protein (6.3-8.2) g/dL Albumin (3.5-5.0) g/dL Globulin (1.7-4.1) g/dL Albumin/Globulin Ratio (1.0-2.8) Lipase (23-300) U/L Urine Color Urine Appearance Urine pH (4.5-8.0) Ur Specific [place] (1.000-1.035) Urine Protein (Negative) Urine Glucose (UA) (Negative) g/dL Urine Ketones (NEGATIVE) Urine Occult Blood (Negative) Urine Nitrate (Negative) Urine Bilirubin (NEGATIVE) Urine Urobilinogen (0.2) E.U./dL Ur Leukocyte Esterase (NEGATIVE) Urine RBC (0-5/HPF) Urine WBC (0-5/HPF) Ur Squamous Epith Cells (0-5/HPF) Urine Bacteria (None) Ur Culture Indicated? Salicylates (<20) mg/dL U Opiates 300ng/mL cut (Negative) Ur Oxycodone Screen (Negative) Urine Methadone Screen (Negative) Acetaminophen (10-30) ug/mL Ur Barbiturates Screen (Negative) U Tricyclic Antidepress (Negative) Ur Phencyclidine Scrn (Negative) Ur Amphetamines Screen (Negative) U Methamphetamines Scrn (Negative) Ur MDMA Scrn (Ecstasy) (Negative) U Benzodiazepines Scrn (Negative) Urine Cocaine Screen (Negative) U Marijuana (THC) Screen (Negative) Ethyl Alcohol ( - 10) mg/dL SARS-CoV-2 (PCR) (Negative) Blood Type Antibody Screen Point of Care Testing Glucose POC 152 ABG Data ABG results: 7.31, CO2 of 47, PaO2 of 608, bicarb of 24. Patient's FiO2 was weaned down to 40% patient appears to have a respiratory acidosis. ECG Data Attestation: I personally reviewed and interpreted this ECG as follows: Prior ECG tracings: available for review Interpretation: Sinus bradycardia first-degree AV block, nonspecific. Bowser. Rate of 50 4p are 224, QRS of 104, QTC of 565. MDM Narrative Medical decision making narrative: This is a 76-year-old male found unresponsive by search and rescue they have been looking for him for the past 48 hours. [place] was [place] local trails. He had multiple bottles of dilaudid, Nucynta and tramadol. His states that the Dilaudid is an old prescription that he no longer takes. She states this is very atypical there is concern for intentional overdose on her part but she states he did not make any comments but he has been very despondent secondary to being told that they did not have a lot of additional options for his chronic pain treatment. He has been following a pain management regularly they have not stopped any of his medications but feel they have maxed out many of his therapies. Patient was quite hypothermic, hypotensive unable to obtain a blood pressure initially and bradycardic. His vitals have been improving as he has warmed. He has electrolyte abnormalities with worsening hypokalemia, negative troponin, no acute ST changes and heart rate has been improving. Shila ent was intubated in the field. He had minimal to no movement initially with extend dilated pupils, patient is not responsive at this time but did begin to have some slight movements they were not clearly purposeful but did seem to be responding to pain. Patient was started on a Versed drip and was breathing over the vent at about 20 to with a rate of 15 that was preset. Patient had radiant heat, [place] and he did fluids, temperature sensing probed found him to be 91 up from 74.3. Patient has been on an or epi drip and maps have been appropriate and are attempting to wean this down. Discussed at length with patient's that he is quite critical at this time. He will need to be fully warmed stabilized and have sedation weaned before his neurologic status can be fully evaluated. Patient attempting to be transferred outside facility at this time, case was discussed with local hospitalist was uncomfortable caring for the patient. Dr. Chiang received sign-out. Dr chiang: Received turned over. Review patient's history and physical and radiologic studies performed up to this point. Patient is currently intubated. Is on Versed for sedation. His on Levophed for blood pressure support. Is ventilated for respiratory support. Patient's repeat labs show his potassium has improved. Kidney function remains normal. Troponins have been negative x2. Repeat blood glass did show a respiratory acidosis. His pCO2 was decreased. His respiratory rate was decreased. Patient continues to have no purposeful movements. He did not respond to painful stimuli. Patient does have dilated pupils at 8 mm however they are equally reactive but only slightly so. He has had little urine output over the past several hours. His temperature has normalized. 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 Did discuss the case with Dr. Carver with [facility] at [facility] who accepts the patient for transport. Patient is currently stable for transport. <Petros Chiang DO - Last Filed: 10/02/21 00:09> Lab Data Labs: Lab Results 10/01/21 10/01/21 10/01/21 Range/Units 14:35 14:35 14:35 WBC 2.6 L (4.5-11.0) X10^3/uL RBC 4.63 (4.5-5.9) X10^6/uL Hgb 15.1 (13.5-17.5) g/dL Hct 43.0 (41-53) % MCV 92.7 (80-100) fL MCH 32.6 (26-34) PG MCHC 35.1 (30-36) % RDW 13.4 (11.6-14.8) % Plt Count 92 L (150-400) X10^3/uL Neut % (Auto) 84.7 H (50-75) % Lymph % (Auto) 11.8 L (25-40) % Johnston % (Auto) 3.2 (3-14) % Eos % (Auto) 0.1 L (2-4) % Baso % (Auto) 0.2 (0-2) % Neut # (Auto) 2200 (5123-4296) /uL Lymph # (Auto) 300 L (0164-8307) /uL Johnston # (Auto) 100 (0-900) /uL Eos # (Auto) 0 (0-450) /uL Baso # (Auto) 0 (0-100) /uL PT 16.7 H (10.1-12.7) SECONDS INR 1.5 H (0.9-1.3) APTT 34 (26.4-36.2) SECONDS ABG pH (7.35-7.45) ABG pCO2 (35-45) mmHg ABG pO2 (80-100) mmHg ABG HCO3 (22-26) mmol/L ABG Total CO2 (21-31) mmol/L ABG O2 Saturation (95-100) % ABG Base Excess (-2-2) mmol/L FiO2 Sodium 134 L (137-145) mmol/L Potassium 3.2 L (3.4-5.1) mmol/L Chloride 98 (98-107) mmol/L Carbon Dioxide 20 L (22-32) mmol/L BUN 27 H (9-20) mg/dL Creatinine 0.62 L (0.66-1.25) mg/dL Estimated GFR > 60 (>60) mL/min BUN/Creatinine Ratio 43.5 H (6-22) Glucose 163 H (80-110) mg/dL Lactate (0.7-2.1) mmol/L Calcium 8.3 L (8.4-10.2) mg/dL Total Bilirubin 0.8 (0.2-1.3) mg/dL AST 117 H (17-59) IU/L ALT 54 H (<50) IU/L Alkaline Phosphatase 61 (38-126) U/L Total Creatine Kinase 4981 H (55-170) U/L CK-MB (CK-2) 83.00 H (<2.37) ng/mL CK-MB (CK-2) Rel Index 1.7 (1.5-5.0) % Troponin I < 0.012 (0.01-0.034) ng/mL Total Protein 5.6 L (6.3-8.2) g/dL Albumin 3.8 (3.5-5.0) g/dL Globulin 1.8 (1.7-4.1) g/dL Albumin/Globulin Ratio 2.1 (1.0-2.8) Lipase 35 (23-300) U/L Urine Color Urine Appearance Urine pH (4.5-8.0) Ur Specific [place] (1.000-1.035) Urine Protein (Negative) Urine Glucose (UA) (Negative) g/dL Urine Ketones (NEGATIVE) Urine Occult Blood (Negative) Urine Nitrate (Negative) Urine Bilirubin (NEGATIVE) Urine Urobilinogen (0.2) E.U./dL Ur Leukocyte Esterase (NEGATIVE) Urine RBC (0-5/HPF) Urine WBC (0-5/HPF) Ur Squamous Epith Cells (0-5/HPF) Urine Bacteria (None) Ur Culture Indicated? Salicylates (<20) mg/dL U Opiates 300ng/mL cut (Negative) Ur Oxycodone Screen (Negative) Urine Methadone Screen (Negative) Acetaminophen (10-30) ug/mL Ur Barbiturates Screen (Negative) U Tricyclic Antidepress (Negative) Ur Phencyclidine Scrn (Negative) Ur Amphetamines Screen (Negative) U Methamphetamines Scrn (Negative) Ur MDMA Scrn (Ecstasy) (Negative) U Benzodiazepines Scrn (Negative) Urine Cocaine Screen (Negative) U Marijuana (THC) Screen (Negative) Ethyl Alcohol < 10 ( - 10) mg/dL SARS-CoV-2 (PCR) (Negative) Blood Type Antibody Screen 10/01/21 10/01/21 10/01/21 Range/Units 14:35 14:35 14:35 WBC (4.5-11.0) X10^3/uL RBC (4.5-5.9) X10^6/uL Hgb (13.5-17.5) g/dL Hct (41-53) % MCV (80-100) fL MCH (26-34) PG MCHC (30-36) % RDW (11.6-14.8) % Plt Count (150-400) X10^3/uL Neut % (Auto) (50-75) % Lymph % (Auto) (25-40) % Johnston % (Auto) (3-14) % Eos % (Auto) (2-4) % Baso % (Auto) (0-2) % Neut # (Auto) (7425-4361) /uL Lymph # (Auto) (2775-9436) /uL Johnston # (Auto) (0-900) /uL Eos # (Auto) (0-450) /uL Baso # (Auto) (0-100) /uL PT (10.1-12.7) SECONDS INR (0.9-1.3) APTT (26.4-36.2) SECONDS ABG pH (7.35-7.45) ABG pCO2 (35-45) mmHg ABG pO2 (80-100) mmHg ABG HCO3 (22-26) mmol/L ABG Total CO2 (21-31) mmol/L ABG O2 Saturation (95-100) % ABG Base Excess (-2-2) mmol/L FiO2 Sodium (137-145) mmol/L Potassium (3.4-5.1) mmol/L Chloride (98-107) mmol/L Carbon Dioxide (22-32) mmol/L BUN (9-20) mg/dL Creatinine (0.66-1.25) mg/dL Estimated GFR (>60) mL/min BUN/Creatinine Ratio (6-22) Glucose (80-110) mg/dL Lactate 3.3 H (0.7-2.1) mmol/L Calcium (8.4-10.2) mg/dL Total Bilirubin (0.2-1.3) mg/dL AST (17-59) IU/L ALT (<50) IU/L Alkaline Phosphatase (38-126) U/L Total Creatine Kinase (55-170) U/L CK-MB (CK-2) (<2.37) ng/mL CK-MB (CK-2) Rel Index (1.5-5.0) % Troponin I (0.01-0.034) ng/mL Total Protein (6.3-8.2) g/dL Albumin (3.5-5.0) g/dL Globulin (1.7-4.1) g/dL Albumin/Globulin Ratio (1.0-2.8) Lipase (23-300) U/L Urine Color Urine Appearance Urine pH (4.5-8.0) Ur Specific [place] (1.000-1.035) Urine Protein (Negative) Urine Glucose (UA) (Negative) g/dL Urine Ketones (NEGATIVE) Urine Occult Blood (Negative) Urine Nitrate (Negative) Urine Bilirubin (NEGATIVE) Urine Urobilinogen (0.2) E.U./dL Ur Leukocyte Esterase (NEGATIVE) Urine RBC (0-5/HPF) Urine WBC (0-5/HPF) Ur Squamous Epith Cells (0-5/HPF) Urine Bacteria (None) Ur Culture Indicated? Salicylates < 1.0 (<20) mg/dL U Opiates 300ng/mL cut (Negative) Ur Oxycodone Screen (Negative) Urine Methadone Screen (Negative) Acetaminophen < 10 (10-30) ug/mL Ur Barbiturates Screen (Negative) U Tricyclic Antidepress (Negative) Ur Phencyclidine Scrn (Negative) Ur Amphetamines Screen (Negative) U Methamphetamines Scrn (Negative) Ur MDMA Scrn (Ecstasy) (Negative) U Benzodiazepines Scrn (Negative) Urine Cocaine Screen (Negative) U Marijuana (THC) Screen (Negative) Ethyl Alcohol ( - 10) mg/dL SARS-CoV-2 (PCR) (Negative) Blood Type O Positive Antibody Screen Negative 10/01/21 10/01/21 10/01/21 Range/Units 14:36 14:36 14:54 WBC (4.5-11.0) X10^3/uL RBC (4.5-5.9) X10^6/uL Hgb (13.5-17.5) g/dL Hct (41-53) % MCV (80-100) fL MCH (26-34) PG MCHC (30-36) % RDW (11.6-14.8) % Plt Count (150-400) X10^3/uL Neut % (Auto) (50-75) % Lymph % (Auto) (25-40) % Johnston % (Auto) (3-14) % Eos % (Auto) (2-4) % Baso % (Auto) (0-2) % Neut # (Auto) (7455-4044) /uL Lymph # (Auto) (5112-9258) /uL Johnston # (Auto) (0-900) /uL Eos # (Auto) (0-450) /uL Baso # (Auto) (0-100) /uL PT (10.1-12.7) SECONDS INR (0.9-1.3) APTT (26.4-36.2) SECONDS ABG pH (7.35-7.45) ABG pCO2 (35-45) mmHg ABG pO2 (80-100) mmHg ABG HCO3 (22-26) mmol/L ABG Total CO2 (21-31) mmol/L ABG O2 Saturation (95-100) % ABG Base Excess (-2-2) mmol/L FiO2 Sodium (137-145) mmol/L Potassium (3.4-5.1) mmol/L Chloride (98-107) mmol/L Carbon Dioxide (22-32) mmol/L BUN (9-20) mg/dL Creatinine (0.66-1.25) mg/dL Estimated GFR (>60) mL/min BUN/Creatinine Ratio (6-22) Glucose (80-110) mg/dL Lactate (0.7-2.1) mmol/L Calcium (8.4-10.2) mg/dL Total Bilirubin (0.2-1.3) mg/dL AST (17-59) IU/L ALT (<50) IU/L Alkaline Phosphatase (38-126) U/L Total Creatine Kinase (55-170) U/L CK-MB (CK-2) (<2.37) ng/mL CK-MB (CK-2) Rel Index (1.5-5.0) % Troponin I (0.01-0.034) ng/mL Total Protein (6.3-8.2) g/dL Albumin (3.5-5.0) g/dL Globulin (1.7-4.1) g/dL Albumin/Globulin Ratio (1.0-2.8) Lipase (23-300) U/L Urine Color Yellow Urine Appearance Clear Urine pH 6.5 (4.5-8.0) Ur Specific [place] >=1.030 H (1.000-1.035) Urine Protein Trace H (Negative) Urine Glucose (UA) Negative (Negative) g/dL Urine Ketones 1+ H (NEGATIVE) Urine Occult Blood 3+ H (Negative) Urine Nitrate Negative (Negative) Urine Bilirubin Negative (NEGATIVE) Urine Urobilinogen 0.2 (0.2) E.U./dL Ur Leukocyte Esterase Negative (NEGATIVE) Urine RBC 5-10/hpf H (0-5/HPF) Urine WBC 0-1/hpf (0-5/HPF) Ur Squamous Epith Cells 0-1 /hpf (0-5/HPF) Urine Bacteria None seen (None) Ur Culture Indicated? Cult not indicated Salicylates (<20) mg/dL U Opiates 300ng/mL cut Positive H (Negative) Ur Oxycodone Screen Negative (Negative) Urine Methadone Screen Negative (Negative) Acetaminophen (10-30) ug/mL Ur Barbiturates Screen Negative (Negative) U Tricyclic Antidepress Negative (Negative) Ur Phencyclidine Scrn Negative (Negative) Ur Amphetamines Screen Negative (Negative) U Methamphetamines Scrn Negative (Negative) Ur MDMA Scrn (Ecstasy) Negative (Negative) U Benzodiazepines Scrn Positive H (Negative) Urine Cocaine Screen Negative (Negative) U Marijuana (THC) Screen Negative (Negative) Ethyl Alcohol ( - 10) mg/dL SARS-CoV-2 (PCR) Negative (Negative) Blood Type Antibody Screen 10/01/21 10/01/21 10/01/21 Range/Units 16:35 16:59 16:59 WBC (4.5-11.0) X10^3/uL RBC (4.5-5.9) X10^6/uL Hgb (13.5-17.5) g/dL Hct (41-53) % MCV (80-100) fL MCH (26-34) PG MCHC (30-36) % RDW (11.6-14.8) % Plt Count (150-400) X10^3/uL Neut % (Auto) (50-75) % Lymph % (Auto) (25-40) % Johnston % (Auto) (3-14) % Eos % (Auto) (2-4) % Baso % (Auto) (0-2) % Neut # (Auto) (5391-6672) /uL Lymph # (Auto) (6768-0291) /uL Johnston # (Auto) (0-900) /uL Eos # (Auto) (0-450) /uL Baso # (Auto) (0-100) /uL PT (10.1-12.7) SECONDS INR (0.9-1.3) APTT (26.4-36.2) SECONDS ABG pH 7.31 L (7.35-7.45) ABG pCO2 47.8 H (35-45) mmHg ABG pO2 608 H* (80-100) mmHg ABG HCO3 24 (22-26) mmol/L ABG Total CO2 25 (21-31) mmol/L ABG O2 Saturation 100 (95-100) % ABG Base Excess -2.0 (-2-2) mmol/L FiO2 100 Sodium (137-145) mmol/L Potassium (3.4-5.1) mmol/L Chloride (98-107) mmol/L Carbon Dioxide (22-32) mmol/L BUN (9-20) mg/dL Creatinine (0.66-1.25) mg/dL Estimated GFR (>60) mL/min BUN/Creatinine Ratio (6-22) Glucose (80-110) mg/dL Lactate 1.3 (0.7-2.1) mmol/L Calcium (8.4-10.2) mg/dL Total Bilirubin (0.2-1.3) mg/dL AST (17-59) IU/L ALT (<50) IU/L Alkaline Phosphatase (38-126) U/L Total Creatine Kinase (55-170) U/L CK-MB (CK-2) (<2.37) ng/mL CK-MB (CK-2) Rel Index (1.5-5.0) % Troponin I < 0.012 (0.01-0.034) ng/mL Total Protein (6.3-8.2) g/dL Albumin (3.5-5.0) g/dL Globulin (1.7-4.1) g/dL Albumin/Globulin Ratio (1.0-2.8) Lipase (23-300) U/L Urine Color Urine Appearance Urine pH (4.5-8.0) Ur Specific [place] (1.000-1.035) Urine Protein (Negative) Urine Glucose (UA) (Negative) g/dL Urine Ketones (NEGATIVE) Urine Occult Blood (Negative) Urine Nitrate (Negative) Urine Bilirubin (NEGATIVE) Urine Urobilinogen (0.2) E.U./dL Ur Leukocyte Esterase (NEGATIVE) Urine RBC (0-5/HPF) Urine WBC (0-5/HPF) Ur Squamous Epith Cells (0-5/HPF) Urine Bacteria (None) Ur Culture Indicated? Salicylates (<20) mg/dL U Opiates 300ng/mL cut (Negative) Ur Oxycodone Screen (Negative) Urine Methadone Screen (Negative) Acetaminophen (10-30) ug/mL Ur Barbiturates Screen (Negative) U Tricyclic Antidepress (Negative) Ur Phencyclidine Scrn (Negative) Ur Amphetamines Screen (Negative) U Methamphetamines Scrn (Negative) Ur MDMA Scrn (Ecstasy) (Negative) U Benzodiazepines Scrn (Negative) Urine Cocaine Screen (Negative) U Marijuana (THC) Screen (Negative) Ethyl Alcohol ( - 10) mg/dL SARS-CoV-2 (PCR) (Negative) Blood Type Antibody Screen 10/01/21 10/01/21 10/01/21 Range/Units 16:59 20:05 20:05 WBC (4.5-11.0) X10^3/uL RBC (4.5-5.9) X10^6/uL Hgb (13.5-17.5) g/dL Hct (41-53) % MCV (80-100) fL MCH (26-34) PG MCHC (30-36) % RDW (11.6-14.8) % Plt Count (150-400) X10^3/uL Neut % (Auto) (50-75) % Lymph % (Auto) (25-40) % Johnston % (Auto) (3-14) % Eos % (Auto) (2-4) % Baso % (Auto) (0-2) % Neut # (Auto) (7048-6052) /uL Lymph # (Auto) (3046-6262) /uL Johnston # (Auto) (0-900) /uL Eos # (Auto) (0-450) /uL Baso # (Auto) (0-100) /uL PT 15.7 H (10.1-12.7) SECONDS INR 1.4 H (0.9-1.3) APTT (26.4-36.2) SECONDS ABG pH (7.35-7.45) ABG pCO2 (35-45) mmHg ABG pO2 (80-100) mmHg ABG HCO3 (22-26) mmol/L ABG Total CO2 (21-31) mmol/L ABG O2 Saturation (95-100) % ABG Base Excess (-2-2) mmol/L FiO2 Sodium 134 L (137-145) mmol/L Potassium 2.6 L* (3.4-5.1) mmol/L Chloride 103 (98-107) mmol/L Carbon Dioxide 15 L (22-32) mmol/L BUN 25 H (9-20) mg/dL Creatinine 0.47 L (0.66-1.25) mg/dL Estimated GFR > 60 (>60) mL/min BUN/Creatinine Ratio 53.2 H (6-22) Glucose 147 H (80-110) mg/dL Lactate (0.7-2.1) mmol/L Calcium 7.9 L (8.4-10.2) mg/dL Total Bilirubin (0.2-1.3) mg/dL AST (17-59) IU/L ALT (<50) IU/L Alkaline Phosphatase (38-126) U/L Total Creatine Kinase 4893 H (55-170) U/L CK-MB (CK-2) (<2.37) ng/mL CK-MB (CK-2) Rel Index (1.5-5.0) % Troponin I (0.01-0.034) ng/mL Total Protein (6.3-8.2) g/dL Albumin (3.5-5.0) g/dL Globulin (1.7-4.1) g/dL Albumin/Globulin Ratio (1.0-2.8) Lipase (23-300) U/L Urine Color Urine Appearance Urine pH (4.5-8.0) Ur Specific [place] (1.000-1.035) Urine Protein (Negative) Urine Glucose (UA) (Negative) g/dL Urine Ketones (NEGATIVE) Urine Occult Blood (Negative) Urine Nitrate (Negative) Urine Bilirubin (NEGATIVE) Urine Urobilinogen (0.2) E.U./dL Ur Leukocyte Esterase (NEGATIVE) Urine RBC (0-5/HPF) Urine WBC (0-5/HPF) Ur Squamous Epith Cells (0-5/HPF) Urine Bacteria (None) Ur Culture Indicated? Salicylates (<20) mg/dL U Opiates 300ng/mL cut (Negative) Ur Oxycodone Screen (Negative) Urine Methadone Screen (Negative) Acetaminophen (10-30) ug/mL Ur Barbiturates Screen (Negative) U Tricyclic Antidepress (Negative) Ur Phencyclidine Scrn (Negative) Ur Amphetamines Screen (Negative) U Methamphetamines Scrn (Negative) Ur MDMA Scrn (Ecstasy) (Negative) U Benzodiazepines Scrn (Negative) Urine Cocaine Screen (Negative) U Marijuana (THC) Screen (Negative) Ethyl Alcohol ( - 10) mg/dL SARS-CoV-2 (PCR) (Negative) Blood Type Antibody Screen 10/01/21 10/01/21 10/01/21 Range/Units 20:05 20:05 21:13 WBC (4.5-11.0) X10^3/uL RBC (4.5-5.9) X10^6/uL Hgb (13.5-17.5) g/dL Hct (41-53) % MCV (80-100) fL MCH (26-34) PG MCHC (30-36) % RDW (11.6-14.8) % Plt Count (150-400) X10^3/uL Neut % (Auto) (50-75) % Lymph % (Auto) (25-40) % Johnston % (Auto) (3-14) % Eos % (Auto) (2-4) % Baso % (Auto) (0-2) % Neut # (Auto) (4699-5340) /uL Lymph # (Auto) (6330-9054) /uL Johnston # (Auto) (0-900) /uL Eos # (Auto) (0-450) /uL Baso # (Auto) (0-100) /uL PT (10.1-12.7) SECONDS INR (0.9-1.3) APTT 28 D (26.4-36.2) SECONDS ABG pH 7.25 L* (7.35-7.45) ABG pCO2 55.1 H (35-45) mmHg ABG pO2 153 H (80-100) mmHg ABG HCO3 24 (22-26) mmol/L ABG Total CO2 26 (21-31) mmol/L ABG O2 Saturation 99 (95-100) % ABG Base Excess -3.0 L (-2-2) mmol/L FiO2 40 Sodium 135 L (137-145) mmol/L Potassium 3.4 (3.4-5.1) mmol/L Chloride 103 (98-107) mmol/L Carbon Dioxide 23 (22-32) mmol/L BUN 26 H (9-20) mg/dL Creatinine 0.56 L (0.66-1.25) mg/dL Estimated GFR > 60 (>60) mL/min BUN/Creatinine Ratio 46.4 H (6-22) Glucose 113 H (80-110) mg/dL Lactate (0.7-2.1) mmol/L Calcium 7.6 L (8.4-10.2) mg/dL Total Bilirubin 0.8 (0.2-1.3) mg/dL AST 123 H (17-59) IU/L ALT 60 H (<50) IU/L Alkaline Phosphatase 43 (38-126) U/L Total Creatine Kinase (55-170) U/L CK-MB (CK-2) (<2.37) ng/mL CK-MB (CK-2) Rel Index (1.5-5.0) % Troponin I (0.01-0.034) ng/mL Total Protein 5.1 L (6.3-8.2) g/dL Albumin 3.2 L (3.5-5.0) g/dL Globulin 1.9 (1.7-4.1) g/dL Albumin/Globulin Ratio 1.7 (1.0-2.8) Lipase (23-300) U/L Urine Color Urine Appearance Urine pH (4.5-8.0) Ur Specific [place] (1.000-1.035) Urine Protein (Negative) Urine Glucose (UA) (Negative) g/dL Urine Ketones (NEGATIVE) Urine Occult Blood (Negative) Urine Nitrate (Negative) Urine Bilirubin (NEGATIVE) Urine Urobilinogen (0.2) E.U./dL Ur Leukocyte Esterase (NEGATIVE) Urine RBC (0-5/HPF) Urine WBC (0-5/HPF) Ur Squamous Epith Cells (0-5/HPF) Urine Bacteria (None) Ur Culture Indicated? Salicylates (<20) mg/dL U Opiates 300ng/mL cut (Negative) Ur Oxycodone Screen (Negative) Urine Methadone Screen (Negative) Acetaminophen (10-30) ug/mL Ur Barbiturates Screen (Negative) U Tricyclic Antidepress (Negative) Ur Phencyclidine Scrn (Negative) Ur Amphetamines Screen (Negative) U Methamphetamines Scrn (Negative) Ur MDMA Scrn (Ecstasy) (Negative) U Benzodiazepines Scrn (Negative) Urine Cocaine Screen (Negative) U Marijuana (THC) Screen (Negative) Ethyl Alcohol ( - 10) mg/dL SARS-CoV-2 (PCR) (Negative) Blood Type Antibody Screen 10/01/21 Range/Units 23:12 WBC (4.5-11.0) X10^3/uL RBC (4.5-5.9) X10^6/uL Hgb (13.5-17.5) g/dL Hct (41-53) % MCV (80-100) fL MCH (26-34) PG MCHC (30-36) % RDW (11.6-14.8) % Plt Count (150-400) X10^3/uL Neut % (Auto) (50-75) % Lymph % (Auto) (25-40) % Johnston % (Auto) (3-14) % Eos % (Auto) (2-4) % Baso % (Auto) (0-2) % Neut # (Auto) (8872-3232) /uL Lymph # (Auto) (6795-1963) /uL Johnston # (Auto) (0-900) /uL Eos # (Auto) (0-450) /uL Baso # (Auto) (0-100) /uL PT (10.1-12.7) SECONDS INR (0.9-1.3) APTT (26.4-36.2) SECONDS ABG pH 7.30 L (7.35-7.45) ABG pCO2 50.0 H (35-45) mmHg ABG pO2 111 H (80-100) mmHg ABG HCO3 25 (22-26) mmol/L ABG Total CO2 26 (21-31) mmol/L ABG O2 Saturation 98 (95-100) % ABG Base Excess -2.0 (-2-2) mmol/L FiO2 30 Sodium (137-145) mmol/L Potassium (3.4-5.1) mmol/L Chloride (98-107) mmol/L Carbon Dioxide (22-32) mmol/L BUN (9-20) mg/dL Creatinine (0.66-1.25) mg/dL Estimated GFR (>60) mL/min BUN/Creatinine Ratio (6-22) Glucose (80-110) mg/dL Lactate (0.7-2.1) mmol/L Calcium (8.4-10.2) mg/dL Total Bilirubin (0.2-1.3) mg/dL AST (17-59) IU/L ALT (<50) IU/L Alkaline Phosphatase (38-126) U/L Total Creatine Kinase (55-170) U/L CK-MB (CK-2) (<2.37) ng/mL CK-MB (CK-2) Rel Index (1.5-5.0) % Troponin I (0.01-0.034) ng/mL Total Protein (6.3-8.2) g/dL Albumin (3.5-5.0) g/dL Globulin (1.7-4.1) g/dL Albumin/Globulin Ratio (1.0-2.8) Lipase (23-300) U/L Urine Color Urine Appearance Urine pH (4.5-8.0) Ur Specific [place] (1.000-1.035) Urine Protein (Negative) Urine Glucose (UA) (Negative) g/dL Urine Ketones (NEGATIVE) Urine Occult Blood (Negative) Urine Nitrate (Negative) Urine Bilirubin (NEGATIVE) Urine Urobilinogen (0.2) E.U./dL Ur Leukocyte Esterase (NEGATIVE) Urine RBC (0-5/HPF) Urine WBC (0-5/HPF) Ur Squamous Epith Cells (0-5/HPF) Urine Bacteria (None) Ur Culture Indicated? Salicylates (<20) mg/dL U Opiates 300ng/mL cut (Negative) Ur Oxycodone Screen (Negative) Urine Methadone Screen (Negative) Acetaminophen (10-30) ug/mL Ur Barbiturates Screen (Negative) U Tricyclic Antidepress (Negative) Ur Phencyclidine Scrn (Negative) Ur Amphetamines Screen (Negative) U Methamphetamines Scrn (Negative) Ur MDMA Scrn (Ecstasy) (Negative) U Benzodiazepines Scrn (Negative) Urine Cocaine Screen (Negative) U Marijuana (THC) Screen (Negative) Ethyl Alcohol ( - 10) mg/dL SARS-CoV-2 (PCR) (Negative) Blood Type Antibody Screen Point of Care Testing Glucose POC 152 MDM Narrative Medical decision making narrative: This is a 76-year-old male found unresponsive by search and rescue they have been looking for him for the past 48 hours. [place]. He had multiple bottles of dilaudid, Nucynta and tramadol. His states that the Dilaudid is an old prescription that he no longer takes. She states this is very atypical there is concern for intentional overdose on her part but she states he did not make any comments but he has been very despondent secondary to being told that they did not have a lot of additional options for his chronic pain treatment. He has been following a pain management regularly they have not stopped any of his medications but feel they have maxed out many of his therapies. Patient was quite hypothermic, hypotensive unable to obtain a blood pressure initially and bradycardic. His vitals have been improving as he has warmed. He has electrolyte abnormalities with worsening hypokalemia, negative troponin, no acute ST changes and heart rate has been improving. Patient was intubated in the field. He had minimal to no movement initially with extend dilated pupils, patient is not responsive at this time but did begin to have some slight movements they were not clearly purposeful but did seem to be responding to pain. Patient was started on a Versed drip and was breathing over the vent at about 20 to with a rate of 15 that was preset. Patient had radiant heat, Court Hugger and he did fluids, temperature sensing probed found him to be 90 weight 0.1 up from 74.3. Patient has been on an or epi drip and maps have been appropriate and are attempting to wean this down. Discussed at length with patient's that he is quite critical at this time. He will need to be fully warmed stabilized and have sedation weaned before his neurologic status can be fully evaluated. Patient attempting to be transferred outside facility at this time, case was discussed with local hospitalist was uncom fortable caring for the patient. Dr. Chiang received sign-out. Dr chiang: Received turned over. Review patient's history and physical and radiologic studies performed up to this point. Patient is currently intubated. Is on Versed for sedation. His on Levophed for blood pressure support. Is ventilated for respiratory support. Patient's repeat labs show his potassium has improved. Kidney function remains normal. Troponins have been negative x2. Repeat blood glass did show a respiratory acidosis. His pCO2 was decreased. His respiratory rate was decreased. Patient continues to have no purposeful movements. He did not respond to painful stimuli. Patient does have dilated pupils at 8 mm however they are equally reactive but only slightly so. He has had little urine output over the past several hours. His temperature has normalized. 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 Did discuss the case with Dr. Carver with [facility] at [facility] who accepts the patient for transport. Patient is currently stable for transport. Naloxone at Discharge Patient criteria for naloxone at discharge: Not Appropriate for pt Critical Care Time <Johanne Velazco, DO - Last Filed: 10/02/21 10:39> Critical Care Time Critical Care Time: Yes <Petros Chiang, DO - Last Filed: 10/02/21 00:09> Critical Care Time Total Critical Care Time: 120 Attestation: The high probability of a clinically significant, sudden or life threatening deterioration of the respiratory, cardiovascular, neurologic system(s) required my full and direct attention, intervention and personal management. The aggregate critical care time was [120] minutes. This time is in addition to time spent performing reported procedures but includes the following: [x] Data Review and interpretation [x] Patient assessment and monitoring of vital signs [x] Documentation [x] Medication orders and management Discharge Plan Departure Patient Disposition: [facility] Clinical Impression: Hypothermia, Hypotension, Hypokalemia, Rhabdomyolysis Overdose Qualifiers: Encounter type: initial encounter Injury intent: undetermined intent Qualified Code(s): T50.904A - Poisoning by unspecified drugs, medicaments and biological substances, undetermined, initial encounter Prescriptions: No Action famotidine 40 mg tablet 40 mg PO BEDTIME 0RF Label Comments: TK 1 T PO QD IN THE SHANE tamsulosin 0.4 mg capsule 0.4 mg PO BEDTIME 0RF Label Comments: TK 1 C PO D HS pantoprazole 40 mg tablet,delayed release (DR/EC) 40 mg PO QAM 0RF lorazepam 1 mg tablet 0.5 - 1 mg PO BID PRN (Reason: agitation or anxiety) 0RF Label Comments: TK 1/2 T PO BID PRF AGITATION OR ANXIETY buprenorphine-naloxone 8-2 mg film 1 film sublingual Q12H 0RF Label Comments: PLACE 1 FILM UNDER THE TONGUE EVERY 12 H Narcan 4 mg/actuation spray,non-aerosol 4 mg INTRANASAL DIRECTED 0RF Label Comments: USE 1 SPRAY BY NASAL ROUTE PRN FOR DECREASED RESPONSIVENESS simethicone [Gas Relief Ultra Strength] 180 mg Capsule 180 mg PO DAILY PRN (Reason: gas) 0RF sertraline 100 mg tablet 100 mg PO BEDTIME 0RF Domperidone 10 mg tablet 5 mg PO TID 0RF Label Comments: patient states Trin[place] form of Reglan. has supply with him... does not tolerate reglan. diltiazem HCl 60 mg capsule,extended release 12 hr 60 mg PO QAM 0RF Label Comments: TK 1 C PO IN MORNING AND 2 CS HS diltiazem HCl 60 mg capsule,extended release 12 hr 120 mg PO QPM 0RF Label Comments: TK 1 C PO IN MORNING AND 2 CS HS nitroglycerin [Nitrostat] 0.4 mg tablet, sublingual 0.4 mg sublingual PRN PRN (Reason: Chest Pain) 0RF Label Comments: PLACE 1 T UNDER THE TONGUE QD PRN AND UTD naproxen [Naprosyn] 500 mg tablet 500 mg PO BID PRN (Reason: pain) Qty: 20 0RF prednisone 20 mg tablet 40 mg PO DAILY Qty: 10 0RF clonazepam [Klonopin] 0.5 mg tablet 0.5 mg PO BID Qty: 10 0RF Referrals: Marcell Mackenzie MD [Primary Care Provider] - Stand Alone Forms: Naloxone Standing Order ANGELICA
[2021-10-01 14:49] LABS: Add Manual Diff / Slide Review NO; Basophils Absolute Auto 0 /uL (0-100); Basophils Percent Auto 0.2 % (0-2); Eosinophils Absolute Auto 0 /uL (0-450); Eosinophils Percent Auto 0.1 % (2-4); Hemoglobin 15.1 g/dL (13.5-17.5); Lymphocytes Absolute Auto 300 /uL (1100-4500); Lymphocytes Percent Auto 11.8 % (25-40); Mean Corpuscular HGB Conc 35.1 % (30-36); Mean Corpuscular Hemoglobin 32.6 PG (26-34); Mean Corpuscular Volume 92.7 fL (80-100); Monocytes Absolute Auto 100 /uL (0-900); Monocytes Percent Auto 3.2 % (3-14); Neutrophils Absolute Auto 2200 /uL (1500-7000); Neutrophils Percent Auto 84.7 % (50-75); Platelet Count 92 X10^3/uL (150-400); Red Blood Cell Count 4.63 X10^6/uL (4.5-5.9); Red Cell Distribution Width 13.4 % (11.6-14.8); White Blood Cell Count 2.6 X10^3/uL (4.5-11.0)
[2021-10-01] MEDS: ATROPINE 1 MG/10 ML SYRINGE IV (14:51)
[2021-10-01 14:55] LABS: INR 1.5 (0.9-1.3); Prothrombin Time 16.7 SECONDS (10.1-12.7)
[2021-10-01 14:58] LABS: PTT Partial Thromboplastin Tim 34 SECONDS (26.4-36.2)
[2021-10-01 15:00] LABS: Lactate (Lactic Acid) 3.3 mmol/L (0.7-2.1)
[2021-10-01 15:00] LABS: Appearance Urine UA CLEAR; Bilirubin Urine UA NEGATIVE (NEGATIVE); Color Urine UA YELLOW; Glucose Urine UA NEGATIVE (Negative); Ketones Urine UA 1+ (NEGATIVE); Leukocyte Esterase Urine UA NEGATIVE (NEGATIVE); Nitrite Urine UA NEGATIVE (Negative); Occult Blood Urine UA 3+ (Negative); Protein Urine UA TRACE (Negative); Specific Gravity Urine UA >=1.030 (1.000-1.035); Urobilinogen Urine UA 0.2 E.U./dL (0.2); pH Urine UA 6.5 (4.5-8.0)
[2021-10-01 15:02] LABS: Acetaminophen < 10 ug/mL (10-30); Alanine Aminotransferase 54 IU/L (<50); Albumin 3.8 g/dL (3.5-5.0); Albumin Globulin Ratio 2.1 (1.0-2.8); Alkaline Phosphatase 61 U/L (38-126); Aspartate Aminotransferase 117 IU/L (17-59); BUN Creatinine Ratio 43.5 (6-22); Bilirubin Total 0.8 mg/dL (0.2-1.3); Blood Urea Nitrogen 27 mg/dL (9-20); Calcium 8.3 mg/dL (8.4-10.2); Carbon Dioxide 20 mmol/L (22-32); Chloride 98 mmol/L (98-107); Estimated Glomerular Filt Rate > 60 mL/min (>60); Ethanol (ETOH) < 10 mg/dL; Globulin 1.8 g/dL (1.7-4.1); Glucose 163 mg/dL (80-110); HEMOLYSIS 21 (0-50); Lipase 35 U/L (23-300); Potassium 3.2 mmol/L (3.4-5.1); Salicylate < 1.0 mg/dL (<20); Sodium 134 mmol/L (137-145); Total Protein 5.6 g/dL (6.3-8.2)
[2021-10-01] MEDS: NOREPINEPHRINE BITARTRATE/D5W 4 MG/250 ML PLAST..BAG 30 MG IV (15:05)
--- NOTE | 2021-10-01 15:07 | DI.RAD.S_ITS ---
PROCEDURE: XR CHEST 1V INDICATIONS: check central line placement TECHNIQUE: One view of the chest was acquired. COMPARISON: [facility], CR, XR CHEST 1V, 10/01/2021, 14:22. FINDINGS: Surgical changes and devices: Tip of central venous catheter projects over the mid SVC via right IJ approach. ET tube projects approximately 7.6 centimeter superior to the juan luis. Lungs and pleura: Lungs are clear. No pleural effusions or pneumothorax. Mediastinum: Mediastinal contours appear normal. Heart size is normal. Bones and chest wall: No suspicious bony lesions. Overlying soft tissues appear unremarkable. IMPRESSION: Tip of central venous catheter projects over the mid SVC. Dictated by: Sharri Delacruz MD, PhD on 10/01/2021 at 15:39 Approved by: Sharri Delacruz MD, PhD on 10/01/2021 at 15:40
[2021-10-01 15:11] LABS: UR Morphine/Opiate cutoff 300 Positive (Negative); Ur Creatinine Normal (Normal); Ur Specific Gravity Normal (Normal); Urine Amphetamines Negative (Negative); Urine Cocaine Negative (Negative); Urine Methamphetamines Negative (Negative); Urine Phencyclidine Negative (Negative); Urine Tetrahydrocannabinol Negative (Negative); Urine pH Normal (Normal)
[2021-10-01 15:12] LABS: Urine Barbiturates Negative (Negative); Urine Benzodiazepines Positive (Negative); Urine MDMA Negative (Negative); Urine Methadone Negative (Negative); Urine Oxycodone Negative (Negative); Urine Tricyclic Antidepressant Negative (Negative)
[2021-10-01 15:12] LABS: Troponin I < 0.012 ng/mL (0.01-0.034)
[2021-10-01 15:16] LABS: COVID19 -Nasal RAPID Negative (Negative)
[2021-10-01 15:24] LABS: Creatine Kinase 4981 U/L (55-170)
[2021-10-01 15:26] LABS: RBC Urine 5-10/HPF (0-5/HPF); Squamous Epithelial Cell Urine 0-1 /HPF (0-5/HPF); WBC Urine 0-1/HPF (0-5/HPF)
[2021-10-01 15:27] LABS: Bacteria Urine None Seen; Culture Indicated Urine Cult Not Indicated
[2021-10-01 15:33] LABS: CKMB % Relative Index 1.7 % (1.5-5.0)
[2021-10-01] MEDS: MIDAZOLAM 2 MG/2 ML VIAL IV ×3 (15:42→16:17)
[2021-10-01] MEDS: SODIUM CHLORIDE 0.9% 1,000 ML 200 ML IV ×2 (16:12→23:09)
--- NOTE | 2021-10-01 16:25 | PC.NURSE ---
Addendum entered by Rhoda Carroll R.N. 10/01/21 16:26: 1417 pt in room from ems for report and transfer of care Meds given by ems in field: NS 1.5 liter 150 mg ketamine 150 succ 40 push epi 2mg narcan Figerstick Blood sugar 157 in field 1421 warming measures started: warm blankets in place 1424 hills placed 16 fr temp sensing 1428 bear hugger plus warm blankets in place 1430 log roll see previous note c collar in place 1430 hills core temp probe reading 74 degrees NS bolus - warmed fluids started LAC at bolus rate 999ml/hr 1432/1434 chest and pelvis xray in trauma bed, and rac 18 ga iv placed and labs obtained and blood band placed 1443 fsbs 152 radiant warmer added to warming measures 1440 still unable to palpate pules radially or obtain nibp manual pressures as follows 85/palp right arm at 1440 63/38 right arm at 1447 1451 atropine 0.5 mg ivp right ac 1452 normal saline warmed at 200 cc/hr running right ac 1500 starting right neck central line, emergency case, timeout done, unable to obtain consent secondary to emergency and pt condition 1510 right neck central line triple lumen complete and confirm via xray. Norepinephrine gtt started at 8mcg/min via central line 1517 manual bp 105/40 HR 42 randomly able to obtain left arm nipb autocuff. minimal movement of upper extremities. 1520 police guard here with home med list copies provided for chart 1522 nipb via autocuff 155/86 1523 norepinephrine gtt decreased to 4mcg/min 1524 warming measures off and transporting to ct with rn x2, rt, and pharmacy laboratory technician x2, with norepi gtt running and no other iv running for trip, on monitor cardiac, nibp, pulse ox for trip. 1527 eyes opening spontaneous and some movement of bilat upper ext noted in ct [address] and warming measures resumed: warm fluids, deandre hugger, and radiant warmer 1540 EMS here with black zip case filled with yellow and white pills some crushed, some in halves: placed in secure ziplock to secure in locked area 1543 versed 2 mg iv 1553 versed 2mg iv, at bs with md, rn x2 and land examiner 1612 norepinephrine gtt decreased to 2mcg/min, 1617 versed 2 mg iv 1640 leaving bs, phone number in chart [phone] 1645 versed gtt started at 3mg/hr via central line. Original Note: 1417 pt in room from ems for report and transfer of care Meds given by ems in fieldL
[2021-10-01 16:41] LABS: Reflexed Lactate in 2 Hours Y
[2021-10-01] MEDS: MIDAZOLAM 50 MG in DEXTROSE 5% IN WATER 240 ML 15 MG IV (16:45)
--- NOTE | 2021-10-01 16:57 | PC.NURSE ---
empty pill bottles that came in with patient via ems are hydromorphone 2mg, tramadol 50 mg and 2 empty bottles of Nucynta 50 mg
[2021-10-01 17:16] LABS: Lactate 2HR (Lactic Acid Rflx) 1.3 mmol/L (0.7-2.1)
[2021-10-01 17:20] LABS: BUN Creatinine Ratio 53.2 (6-22); Blood Urea Nitrogen 25 mg/dL (9-20); Calcium 7.9 mg/dL (8.4-10.2); Carbon Dioxide 15 mmol/L (22-32); Chloride 103 mmol/L (98-107); Estimated Glomerular Filt Rate > 60 mL/min (>60); Glucose 147 mg/dL (80-110); Sodium 134 mmol/L (137-145)
[2021-10-01 17:31] LABS: Troponin I < 0.012 ng/mL (0.01-0.034)
[2021-10-01 17:40] LABS: HEMOLYSIS 69 (0-50)
[2021-10-01 17:42] LABS: Potassium 2.6 mmol/L (3.4-5.1)
[2021-10-01 17:52] LABS: PCO2 ABG 47.8 mmHg (35-45); pH ABG 7.31 (7.35-7.45)
[2021-10-01 17:53] LABS: HCO3 ABG 24 mmol/L (22-26); PO2 ABG 608 mmHg (80-100); TCO2 ABG 25 mmol/L (21-31)
[2021-10-01 17:54] LABS: Fractionated Inspired Oxygen 100; Oxygen Saturation ABG 100 % (95-100)
[2021-10-01] MEDS: POTASSIUM CHLORIDE IN WATER 10 MEQ/100 ML PIGGYBACK 100 MEQ IV ×4 (18:01→21:09)
--- NOTE | 2021-10-01 18:29 | PC.NURSE ---
Provider Dr. Velazco asked me to try and place this patient on transfer lists for available hospitals. I called [facility] at 1703 and placed this patient on their transfer list. I called [facility] at 1709 and placed this patient on their transfer list. I called [facility] at 1714 and placed this patient on their transfer list. I called [facility] at 1720 and talked to the sterilizer machine operator who tried to call the dye house supervisor but they were told they have no beds and they were unable to talk at the moment. I called [facility] at 1726 and left a message for the dye house supervisor. I called [facility] at 1731 to placed this patient on their transfer list. I called [facility] at [address] this patient on their transfer list but they said they couldn't place him on their list and to call back in 4 hours. I called [facility] at 1820 and placed this patient on their list
--- NOTE | 2021-10-01 18:51 | PC.NURSE ---
pharmacy took bag of unidentified pills to dispose of safely
--- NOTE | 2021-10-01 19:24 | PC.NURSE ---
transferring care of pt to nightsflft rn for critical care time at 1924
--- NOTE | 2021-10-01 19:44 | PC.NURSE ---
Addendum entered by Joanie Perez R.N. 10/01/21 20:00: ventilator settings at FiO2 @40% Rate 15, TV 350 PEEP 5 Original Note: pt is intubated with 7.5 ET tube secured at 25 at the teeth, BBS clear and decreased, no epigastric sounds, pt has a temp hills inserted wtih clear urine noted in bag, Pupils equal at 7mm and sluggish, pt has a triple lumen in the right jugular with potassium infusing in the medial port @ 100 ml/hr, versed 50 mg/250 D5 is infusing in the proximal port at 25 ml/hr or 5 mg/hr, levophed 4mg/250 D5 infusing in the distal port at 4mcg/mn or 15 ml/hr, the site is clear without any redness or swelling noted, pt has a 18 g peripheral IV in the right AC with NS infusing through the fluid warmer at 200 ml/hr and a 18 gauge peripheral IV help lock in the left AC, pt's GCS is 3/intubated with resp 1515
[2021-10-01 20:28] LABS: INR 1.4 (0.9-1.3); Prothrombin Time 15.7 SECONDS (10.1-12.7)
[2021-10-01 20:34] LABS: Alanine Aminotransferase 60 IU/L (<50); Albumin 3.2 g/dL (3.5-5.0); Albumin Globulin Ratio 1.7 (1.0-2.8); Alkaline Phosphatase 43 U/L (38-126); Aspartate Aminotransferase 123 IU/L (17-59); BUN Creatinine Ratio 46.4 (6-22); Bilirubin Total 0.8 mg/dL (0.2-1.3); Blood Urea Nitrogen 26 mg/dL (9-20); Calcium 7.6 mg/dL (8.4-10.2); Carbon Dioxide 23 mmol/L (22-32); Chloride 103 mmol/L (98-107); Estimated Glomerular Filt Rate > 60 mL/min (>60); Globulin 1.9 g/dL (1.7-4.1); Glucose 113 mg/dL (80-110); HEMOLYSIS 26 (0-50); Potassium 3.4 mmol/L (3.4-5.1); Sodium 135 mmol/L (137-145); Total Protein 5.1 g/dL (6.3-8.2)
[2021-10-01 20:36] LABS: PTT Partial Thromboplastin Tim 28 SECONDS (26.4-36.2)
--- NOTE | 2021-10-01 20:47 | PC.NURSE ---
radiant warmer and zogilmar alaniser turned off core temp at 96.3 warm fluids continue to infuse
[2021-10-01 20:56] LABS: Creatine Kinase 4893 U/L (55-170)
--- NOTE | 2021-10-01 21:21 | PC.NURSE ---
ABGs drawn and results given to doctor, vent setting changed to Rate of 12 and FiO2 30%
--- NOTE | 2021-10-01 22:15 | PC.NURSE ---
core temp at 98.4 NS removed from warmer and but continuing to infuse
--- NOTE | 2021-10-01 22:22 | PC.NURSE ---
urine output 5 ml for last [address] Chiang informed no new orders, NS changed to medial port on the triple lumen
[2021-10-01 22:46] LABS: HCO3 ABG 24 mmol/L (22-26); PCO2 ABG 55.1 mmHg (35-45); PO2 ABG 153 mmHg (80-100)
[2021-10-01 22:47] LABS: Fractionated Inspired Oxygen 40; Oxygen Saturation ABG 99 % (95-100); TCO2 ABG 26 mmol/L (21-31)
--- NOTE | 2021-10-01 23:25 | PC.NURSE ---
per RT O2 decreased to 21%
[2021-10-01 23:33] LABS: Fractionated Inspired Oxygen 30; HCO3 ABG 25 mmol/L (22-26); Oxygen Saturation ABG 98 % (95-100); PO2 ABG 111 mmHg (80-100); TCO2 ABG 26 mmol/L (21-31)
[2021-10-02] VITALS: BP 95/51; PULSE 92; RESP 16; TEMP 37.3; O2SAT 96
[2021-10-02 00:05] VITALS: BP 96/51; PULSE 92; RESP 14; TEMP 37.4; O2SAT 96
[2021-10-02 00:10] VITALS: BP 96/54; PULSE 92; RESP 16; TEMP 37.4; O2SAT 96
[2021-10-02 00:15] VITALS: BP 96/51; PULSE 92; RESP 16; TEMP 37.4; O2SAT 96
[2021-10-02 00:20] VITALS: BP 96/53; PULSE 92; RESP 15; TEMP 37.4; O2SAT 97
[2021-10-02] MEDS: MIDAZOLAM 50 MG in DEXTROSE 5% IN WATER 240 ML 25 MG IV (00:21)
[2021-10-02] MEDS: NOREPINEPHRINE BITARTRATE/D5W 4 MG/250 ML PLAST..BAG 22.5 MG IV (00:56)
[2021-10-05 12:17] LABS: pH ABG 7.25 (7.35-7.45)
== END 2021-10-02 00:30 | disposition short-term general hospital (02) ==
PROVIDERS: Emergency Medicine; Emergency Provider Emergency Medicine; PCP Family Medicine
DX: T68.XXXA Hypothermia, initial encounter (principal); I95.9 Hypotension, unspecified; E87.6 Hypokalemia; M62.82 Rhabdomyolysis; T50.904A Poisoning by unspecified drugs, medicaments and biological substances, undetermined, initial encounter; Z20.822 Contact with and (suspected) exposure to COVID-19
CPT/HCPCS: 36415; 36556; 36600; 70450; 71045; 71260; 72125; 72170; 74177; 80048; 80053; 80305; 80320; 80329; 81001; 82550; 82553; 82805; 82962; 83605; 83690; 84484; 85025; 85610; 85730; 86850; 86900; 86901; 87635; 93005; 94002; 94799; 96361; 96365; 96366; 96368; 96375; 99285; 99291; 99292; C9803; G0480; J0461; J2250; Q9967